=== PATIENT | female | born 1980 | race Caucasian/White ===

== ENCOUNTER 2019-10-19 07:57 | Outpatient (CLI) | payer BC, SELFPAY ==
--- NOTE | 2019-10-19 | MR_ITS ---
WS: [id number] MRI CERVICAL SPINE HISTORY: RADICULAR NECK AND BACK PAIN COMPARISON: None available. Normal cervical alignment with no compression fracture or significant disc space narrowing. Signal within the cervical cord is normal. Visualized posterior fossa is unremarkable. Craniocervical junction, C1 and C2 relationship, odontoid process and soft tissues are normal. C2-C3: Normal. C3-C4: Normal. C4-C5: Shallow LEFT paracentral osteophyte and/or disc protrusion without cord contact or significant encroachment. C5-C6: Mild annular disc bulging and osteophytosis. Larger osteophytes in the RIGHT foramen causing m ild stenosis. C6-C7: Mild disc bulging without stenosis. C7-T1: Normal. RIGHT T2 III nerve root sleeve diverticulum. Soft tissues of the neck are negative. MR/MR cervical spin wo con* [id number] IMPRESSION: 1. No significant disc protrusions or stenosis. 2. Mild RIGHT foraminal narrowing at C5-6 predominantly due to osteophyte dise ase.
--- NOTE | 2019-10-19 | MR_ITS ---
WS: [id number] MRI THORACIC SPINE , noncontrast. HISTORY: RADICULAR NECK AND BACK PAIN COMPARISON: None available. TECHNIQUE: Multiplanar sequences are performed in sagittal and axial planes. Normal posterior thoracic alignment. No fracture or marrow edema. Signal within the thoracic cord is normal. T1-2: Normal. T2-3: Hyperintense nodule measuring 6 x 7 mm to the RIGHT of the T2 vertebral body is probably degen erative cyst or nerve root sleeve diverticulum. T3-4: Normal. T4-5: Normal. T5-6: Normal. T6-7: Normal. T7-8: Normal. T8-9: Normal. T9-10: Normal. T10-11: Facet joint arthropathy. Small osteophytes encroach upon the posterior lateral thecal sac, g reatest on the RIGHT. No cord contact. T11-12: Normal. Paraspinal soft tissues are normal. MR/MR thoracic spin wo con* [id number] IMPRESSION: 1. No central or foraminal stenosis. 2. Mild facet joint arthropathy at T10-11. 3. Normal signal within the thoracic cord.
--- NOTE | 2019-10-19 | MR_ITS ---
WS: [id number] MRI LUMBAR SPINE NONCONTRAST HISTORY: RADICULAR NECK AND BACK PAIN COMPARISON: 12/22/2016 TECHNIQUE: Sagittal and axial multisequence imaging is submitted. Normal lumbar alignment with no compression fractures or marrow edema. Mild disc desiccation at L3-4 and L4-5. No marrow edema or fractures. Conus terminates normally at L1-2 disc level. L1-L2: Normal. L2-L3: Normal. L3-L4: Mild annular disc bulging. Slight narrowing of the subarticular recesses. Mild facet joint art hropathy. L4-L5: Small amount of fluid in the facet joints. No stenosis. L5-S1: Central disc bulging. No stenosis. 3 mm facet joint cyst on the LEFT. Paraspinal soft tissues are normal. MR/MR lumbar spine wo con* [id number] IMPRESSION: 1. No significant central or foraminal stenosis. 2. Minimal bilateral subarticular recess narrowing at L3-4 due to disc bulging and facet joint arthropathy.
== END 2019-10-19 07:58 | disposition home or self-care (01) ==
LOC: RADWPI 08:02
PROVIDERS: PCP Family Medicine; Visit Provider Family Medicine
DX: M54.2 Cervicalgia (principal); M54.6 Pain in thoracic spine; M54.5 Low back pain
CPT/HCPCS: 72141; 72146; 72148

== ENCOUNTER 2019-10-24 06:53 | Day surgery (SDC) | payer BC, SELFPAY ==
[2019-10-24 07:53] VITALS: BMI 33.0
[2019-10-24] MEDS: sodium chloride 0.9% 1,000 ML 30 ML (08:07)
--- NOTE | 2019-10-24 08:12 | ANES.PREANES ---
Pre-Anesthetic Assessment Pre-Anesthetic Assessment: Height/Weight: Height 1.57 m Weight 82.1 kg Preop Diagnosis: GERD; previous gastric sleeve Proposed Procedure: Operation Date: 10/24/19 08:30 Proposed Procedures p EGD(Not Applicable) - Chris Tellez MD Familial anesthetic complications: denies Was Beta Mallorie taken within 24 hours: N/A Last intake: Intake Last Liquid Date 10/23/19 Last Liquid Time 07:57 Last Solid Date 10/23/19 Last Solid Time 19:00 Social: Social History: No alcohol and No tobacco Exam: Pre-Anes Outpt Exam: alert, oriented x 3, clear to auscultation bilaterally and regular rate & rhythm Airway: Submandibular: WNL Cervical ROM: WNL MP: 1 Dentition: Full History/ROS: No significant history except as noted Pulmonary: Comments: RUL pulmonary nodule; patient admits to having bronchitis and pneumonia frequently as a child CV/HEM: CV/HEM: HTN : : None reported Hepatic: Hepatic: None reported GI: GI: GERD and Hiatus hernia Metabolic: Metabolic: None reported Musc/skel: Musc/skel: Lower Back Pain Neuropsych: Neuropsych: Anxiety, Neuropathy and TIA (admitted through the ER in September 2019; slurred speach and facial numbness; no residual effects noted) Anesthetic Plan: ASA status: II Anesthesia: Anesthesia Evaluation and MAC Risk of > 500 ml blood loss (7ml/kg in children): No Data Anesthesia Cardiac Studies: No Data to Display
--- NOTE | 2019-10-24 08:22 | PM.HPUD ---
H&P update H&P Update: DATE OF SURGERY/PROCEDURE: 10/24/19 DATE H&P PERFORMED: 09/20/19 PLANNED PROCEDURE: Operation Date: 10/24/19 08:30 Proposed Procedures p EGD(Not Applicable) - Chris Tellez MD Full H&P HPI: PLANNED PROCEDURE: Diagnostic EGD HPI: Chief complaint; Heartburn HPI; This is a pleasant 39 years old female patient well-known to me status post laparoscopic vertical gastric sleeve about 2 years ago, patient does have worsening GERD and difficulty in swallowing, she had an upper GI study back in December 2018 and was not of significance, except for prior postoperative changes of gastric sleeve, that with prominent GERD, and associated mild esophageal dysmotility. ROS: ROS: Review of Systems Constitutional: Denies: Chills, Fatigue, Fever, Malaise, No constitutional symptoms, Other, Other, Sweats, Weakness, Weight loss cardiac symptoms, Orthopnea, Other, Other, Palpitations, Paroxysmal Noc. Dyspnea Respiratory: Denies: Cough- Productive, Cough-Nonproductive, Hemoptysis, No respiratory symptoms, Other, Other, Pleuritic Pain, SOB at rest, SOB with exertion, Wheezing GI: GERD Neuro: Denies: Ataxia, Change in speech, Confusion, Drowsy, Focal motor issue, Focal sensory issue, Headaches, No neuro symptoms, Numbness, Other, Other, Seizures, Syncope, Tremors, Vertigo, Weakness Perinent History: Medical/Surgical History: History of gastric sleeve Pertinent Exam Findings: PHYSICAL EXAM: alert, oriented x 3, clear to auscultation bilaterally and operative site marked (Abdomen nontender nondistended soft no organomegaly guarding or rigidity/no signs of peritonitisExtremities no cyanosis no clubbing no edema) A&P Assessment and plan (1) GERD (gastroesophageal reflux disease): Plan of care; After thorough history and physical examination and reviewing the chart, plan to perform a diagnostic esophagogastroduodenoscopy and possible biopsy in the GI lab. Informed consent per chart were,Indications, risks, benefits, and alternatives were all discussed with the patient and did agree to proceed. Status: Acute Code(s): K21.9 - Gastro-esophageal reflux disease without esophagitis
[2019-10-24 08:38] VITALS: BP 95/72; PULSE 84; RESP 16; TEMP 36.1; O2SAT 97
[2019-10-24 08:48] VITALS: BP 122/84; PULSE 73; RESP 18; O2SAT 100
--- NOTE | 2019-10-24 08:53 | ANE.PACU ---
 Inpatient post-anesthesia follow up: Airway intact: Yes Vital signs: Temperature 97.0 F Pulse Rate [Left B rachial] 84 Respiratory Rate 16 Blood Pressure [Le ft Arm] 95/72 Pulse Oximetry 97 Oxygen Delivery Me thod Room Air Oxygen Flow Rate Fraction of Inspir ed Oxygen Hydration adequate: Yes Nausea and vomiting: No Pain level: 0 Mental status: Baseline
[2019-10-25 06:56] LABS: H. Pylori / CLO Test Negative
== END 2019-10-24 09:08 | disposition home or self-care (01) ==
PROVIDERS: Visit Provider Surgery
PROC: 0DJ08ZZ Inspection of Upper Intestinal Tract, Via Natural or Artificial Opening Endoscopic (ICD-10-PCS; CPT 43235; principal; 2019-10-24 08:30)
DX: K21.9 Gastro-esophageal reflux disease without esophagitis (principal); K29.70 Gastritis, unspecified, without bleeding; Z98.84 Bariatric surgery status
CPT/HCPCS: 12345; 43239; 87077; 96365; J2704; J7030

== ENCOUNTER 2020-02-19 17:07 | Outpatient (CLI) | payer BC, SELFPAY ==
[2020-02-19 18:03] LABS: Basophils % 0.3 %; Eosinophils # 0.2 10^3/uL (0.0-0.8); Eosinophils % 2.9 %; Hematocrit 40.4 % (37.0-47.0); Hemoglobin 13.1 g/dL (11.5-15.3); Lymphocytes # 2.3 10^3/uL (0.8-4.8); Lymphocytes % 33.2 %; Mean Corpuscular HGB Conc 32.4 g/dL (30.0-36.0); Mean Corpuscular Hemoglobin 29.9 pg (28.0-34.0); Mean Corpuscular Volume 92.2 fL (81-99); Mean Platelet Volume 10.1 fL (7.4-10.4); Monocytes # 0.4 10^3/uL (0.2-0.9); Monocytes % 6.2 %; Neutrophils % 57.1 %; Nucleated Red Blood Cells % 0 %; Platelet Count 234 10^3/cmm (130-400); Red Blood Count 4.38 10^6/uL (4.1-5.3); Red Cell Distribution Width 11.9 % (12.1-15.1); White Blood Count 6.9 10^3/uL (4.0-10.0)
[2020-02-19 18:12] LABS: Alanine Aminotransferase 27 U/L (0-33); Albumin Level 4.5 g/dL (3.5-5.2); Alkaline Phosphatase 81 IU/L (35-105); Anion Gap 14.7 (5-19); Aspartate Amino Transferase 18 U/L (0-32); Blood Urea Nitrogen 9 mg/dL (6-20); C Reactive Protein 6.6 mg/L (0.0-4.9); Calcium 10.2 mg/dL (8.5-10.5); Carbon Dioxide 28 mmol/L (22-29); Chloride 102 mmol/L (98-107); Globulin 3.4 g/dL (1.3-4.6); Glucose 59 mg/dL (65-115); Osmolality Calculated 286 mOsm/kg (285-295); Potassium 3.7 mmol/L (3.5-5.1); Sodium 141 mmol/L (136-145); Thyroid Stimulating Hormone 1.99 uIU/mL (0.27-4.20); Total Bilirubin 0.2 mg/dL (0.15-1.2); Total Protein 7.9 g/dL (6.6-8.7)
[2020-02-19 20:52] LABS: Erythrocyte Sedimentation Rate 8 mm/hr (0-15)
[2020-02-21 12:44] LABS: Anti-Double Strand DNA AB 1 IU/mL; Jo-1 Antibody <1.0 NEG AI (<1.0 NEG); SM/RNP Antibodies <1.0 NEG AI (<1.0 NEG); SS-B/LA IGG <1.0 NEG AI (<1.0 NEG); Scleroderma Ab(Scl-70) Ab <1.0 NEG AI (<1.0 NEG); Ss-A/Ro Igg <1.0 NEG AI (<1.0 NEG)
[2020-02-21 23:48] LABS: 25 Hydroxy Vitamin D 26 ng/mL (30-100)
== END 2020-02-19 17:08 | disposition home or self-care (01) ==
LOC: LAB 17:10
PROVIDERS: PCP Nurse Practitioner Family; Visit Provider Nurse Practitioner Family
DX: L56.8 Other specified acute skin changes due to ultraviolet radiation (principal)
CPT/HCPCS: 36415; 80053; 82306; 84443; 85025; 85651; 86140; 86225; 86235

== ENCOUNTER → 2020-04-24 16:18 | Outpatient (BNVA) | payer BC, SELFPAY | PROVIDERS: PCP Nurse Practitioner Family; Visit Provider Nurse Practitioner Family | DX: M25.50 Pain in unspecified joint (principal); R53.83 Other fatigue | CPT/HCPCS: 85025 ==

== ENCOUNTER → 2020-04-25 08:49 | Outpatient (BNVA) | payer BC, SELFPAY | PROVIDERS: PCP Nurse Practitioner Family; Visit Provider Nurse Practitioner Family | DX: R53.83 Other fatigue (principal); M25.50 Pain in unspecified joint | CPT/HCPCS: 80053; 84443; 86140; 86431 ==

== ENCOUNTER 2020-07-15 07:43 | Outpatient (CLI) | payer BC, SELFPAY ==
--- NOTE | 2020-07-15 08:00 | CT_ITS ---
WS: [id number] CT CHEST WITH INTRAVENOUS CONTRAST HISTORY: enlarged lymph nodes TECHNIQUE: Contiguous 5 mm axial imaging performed on the thorax. Coronal and sagittal reformats are submitted. All CT scans at [facility] use at least one of these dose optimization techniq ues: automated exposure control; mA and/or kV adjustment per patient size (includes targeted exams wh ere dose is matched to clinical indication); or iterative reconstruction. CONTRAST: Omnipaque 300; 95 mL IV. DLP: 948.47 mGycm COMPARISON: 12/11/2018 and 10/30/2014 Lungs and central airway: Again noted is a noncalcified 6.5 mm nodule in the RIGHT upper lobe, image 13 of series 3. Appears slightly more solid although the diameter is similar to the prior study. Yogesh tional small 7 mm nodule in the LEFT lower lobe is probably also present. Partially obscured by the a djacent vascular branches. Indeterminate for additional lesion. 3 pulmonary nodule along the RIGHT ma verito fissure is unchanged, image 22 of series 3. Pleura: Normal. No pleural effusion. Heart and pericardium: Normal size heart with no pericardial effusion. Mediastinum and chad: Numerous indeterminate hilar and mediastinal lymph nodes are again identified. Not significantly changed or progressed or improved since 12/11/2018. Largest lymph node measures 10 mm at the RIGHT hilum. Vessels: Normal size aortic and pulmonary artery. No coronary artery calcifications. Chest wall and lower neck: No soft tissue masses. Upper abdomen: Moderate-sized hiatal hernia. Hepatic steatosis. Prior cholecystectomy. No adrenal mas s. Osseous structures: No destructive process. CT/CT chest w con* [id number] IMPRESSION: 1. Minimal change in the RIGHT upper lobe 6.5 mm nodule since 12/11/2018. Questi onable new nodule LEFT lower lobe. 2. Indeterminate but stable since 12/11/2018 is mediastinal and hilar adenopathy . 3. Prior cholecystectomy. 4. Recommendation: [address] follow-up to reevaluate long-term stabili ty of the lung nodules and adenopathy which has remained stable since 12/11/2018.
[2020-07-15] MEDS: iohexol 300 mg/mL 100 mL Btl IV (08:39)
== END 2020-07-15 07:44 | disposition home or self-care (01) ==
LOC: RADWPI 07:48
PROVIDERS: Visit Provider Nurse Practitioner Family
DX: R59.0 Localized enlarged lymph nodes (principal); R91.1 Solitary pulmonary nodule; Z90.49 Acquired absence of other specified parts of digestive tract
CPT/HCPCS: 71260; Q9967

== ENCOUNTER → 2020-07-22 09:41 | Outpatient (BNVA) | payer BC, SELFPAY | PROVIDERS: Visit Provider Internal Medicine | DX: D86.9 Sarcoidosis, unspecified (principal); Z11.59 Encounter for screening for other viral diseases; M25.50 Pain in unspecified joint; R53.83 Other fatigue; R21 Rash and other nonspecific skin eruption; R59.0 Localized enlarged lymph nodes | CPT/HCPCS: 36415; 80053; 82024; 82164; 82306; 82310; 82533; 82550; 82607; 82728; 82784; 83516; 83540; 83970; 84100; 85651; 86140; 86431; 86704; 86803; 86812; 87340; 99204 ==

== ENCOUNTER → 2020-08-16 11:36 | Outpatient (BNVA) | payer BC, SELFPAY | PROVIDERS: Visit Provider Internal Medicine Pulmonary Disease | DX: Z11.59 Encounter for screening for other viral diseases (principal) | CPT/HCPCS: 87635 ==

== ENCOUNTER 2020-08-20 13:41 | Outpatient (CLI) | payer BC, SELFPAY ==
--- NOTE | 2020-08-20 14:26 | PFTS_ITS ---
Date of Study:08/20/20 Date of Dictation: MECHANICS: Forced vital capacity (FVC) is normal. Forced expiratory volume in one second (FEV1) is normal. FEV1/FVC is normal. FLOW VOLUME LOOP: Normal. LUNG VOLUMES: Total lung capacity (TLC) is normal. Residual volume (RV) is normal. DIFFUSING CAPACITY FOR CARBON MONOXIDE: Normal. INTERPRETATION: The pulmonary function tests are normal. Lung volumes are normal. Gas exchange (DLCO) is normal. MTDD
--- NOTE | 2020-08-20 15:45 | USCV_ITS ---
Linda Spicer Age: 40 Gender: F : 1980 Exam Date: 08/20/2020 14:49 Ordering Phys: Martín Malagon MD Technologist: Cara Hanson [place] [facility] [place]: ASSESS LV FUNCTION BP: 130 / 70 HR: 67 Rhythm: Sinus Technical Quality: Adequate MEASUREMENTS (Male / Female) Normal Values 2D ECHO LV Diastolic Diameter PLAX 3.6 cm 4.2 - 5.9 / 3.9 - 5.3 cm LV Systolic Diameter PLAX 2.5 cm LV Chamber Size 2.8 cm IVS Diastolic Thickness 1.3 cm 0.6 - 1.0 / 0.6 - 0.9 cm IVS Systolic Thickness 1.5 cm LVPW Diastolic Thickness 1.0 cm 0.6 - 1.0 / 0.6 - 0.9 cm LVPW Systolic Thickness 1.2 cm RV Chamber Size 2.8 cm LVOT Diameter 2.0 cm LV Ejection Fraction 2D Teich 57.9 % LV Ejection Fraction MOD 2C 74.1 % LV Ejection Fraction 2C AL 74.1 % LA Diameter 3.6 cm LA Width 3.1 cm LA Height 3.5 cm RA Width 2.8 cm RA Height 3.5 cm Aorta at Sinotubular Diameter 2.3 cm M-MODE LV Diastolic Diameter MM 4.6 cm 4.2 - 5.9 / 3.9 - 5.3 cm LV Systolic Diameter MM 2.9 cm LV Ejection Fraction MM Teich 66.1 % IVS Diastolic Thickness MM 0.9 cm 0.6 - 1.0 / 0.6 - 0.9 cm IVS Systolic Thickness MM 1.4 cm LVPW Diastolic Thickness MM 0.9 cm 0.6 - 1.0 / 0.6 - 0.9 cm LVPW Systolic Thickness MM 1.6 cm RV Diastolic Diameter MM 1.4 cm Aortic Annulus Diameter 3.0 cm LA Ao Ratio MM 1.4 MV E Point Septal Separation 0.2 cm DOPPLER AV Peak Velocity 128.0 cm/s LVOT Peak Velocity 75.0 cm/s AV Area Cont Eq vti 1.8 cm squared AV Area Cont Eq pk 1.8 cm squared MV Area PHT 4.4 cm squared Mitral E to A Ratio 1.5 MV E' Velocity 51.5 cm/s Mitral E to MV E' Ratio 7.8 Mitral E to LV E' Lateral Ratio 6.7 Mitral E to LV E' Septal Ratio 9.5 TR Peak Velocity 184.8 cm/s TR Peak Gradient 13.7 mmHg TR Mean Velocity 136.7 cm/s TR Mean Gradient 8.4 mmHg TR Velocity Time Integral 60.0 cm TV Peak E Velocity 70.0 cm/s Right Atrial Pressure 3.0 mmHg Pulmonary Artery Systolic Pressu 16.7 mmHg PV Peak Velocity 59.0 cm/s RV Acceleration Time 0.2 s RV Ejection Time 0.3 s RV AcT/ET 0.5 FINDINGS Left Ventricle Normal left ventricular cavity size. Normal left ventricular systolic function. No regional wall motion abnormalities. Left ventricular ejection fraction is estimated at 60 %. Grade II/IV diastolic dysfunction, moderately elevated filling pressures. Right Ventricle The right ventricle is normal in size and function. Right Atrium The right atrium is normal in size. Left Atrium The left atrium is normal in size. Mitral Valve Mildly thickened mitral valve. No mitral valve stenosis. Trace mitral valve regurgitation. Aortic Valve Mild aortic valve calcification. No aortic valve stenosis. Trace aortic valve regurgitation. Tricuspid Valve Mild to moderate tricuspid valve regurgitation. Pulmonic Valve Structurally normal pulmonic valve without significant stenosis. There is no pulmonic regurgitation. Pericardium Normal pericardium without effusion. Aorta Normal ascending aorta dimension. CONCLUSIONS 1-Normal left ventricular cavity size. Normal left ventricular systolic function. No regional wall motion abnormalities. Left ventricular ejection fraction is estimated at 60 %. Grade II/IV diastolic dysfunction, moderately elevated filling pressures. 2-Mild to moderate tricuspid valve regurgitation. 3-Mildly thickened mitral valve. No mitral valve stenosis. Trace mitral valve regurgitation. 4-There is no pericardial effusion. 5-Right atrial pressure is around 5 mm of mercury. 6-No significant change since the prior echocardiogram study of 11/12/2017. Jovany Hinojosa MD (Electronically Signed) Final Date: 20 August 2020 19:28 S
== END 2020-08-20 13:42 | disposition home or self-care (01) ==
PROVIDERS: PCP Nurse Practitioner Family; Visit Provider Internal Medicine Pulmonary Disease
DX: R22.43 Localized swelling, mass and lump, lower limb, bilateral (principal); I08.1 Rheumatic disorders of both mitral and tricuspid valves
CPT/HCPCS: 93306; 94010; 94726; 94729

== ENCOUNTER → 2020-08-28 14:37 | Outpatient (BNVA) | payer BC, SELFPAY | PROVIDERS: PCP Nurse Practitioner Family; Visit Provider Internal Medicine | DX: M25.50 Pain in unspecified joint (principal); R21 Rash and other nonspecific skin eruption; R53.83 Other fatigue; R76.8 Other specified abnormal immunological findings in serum; K21.9 Gastro-esophageal reflux disease without esophagitis; Z87.891 Personal history of nicotine dependence | CPT/HCPCS: 80053; 82164; 82310; 82570; 83970; 84100; 84156; 99214 ==

== ENCOUNTER → 2020-08-29 11:38 | Outpatient (BNVA) | payer BC, SELFPAY | PROVIDERS: PCP Nurse Practitioner Family; Visit Provider Internal Medicine | DX: Z79.899 Other long term (current) drug therapy (principal); M25.50 Pain in unspecified joint | CPT/HCPCS: 36415; 80053; 82164; 82310; 82570; 83970; 84100; 84156 ==

== ENCOUNTER 2020-08-29 13:11 | Emergency (ER) | payer BC, SELFPAY ==
[2020-08-29 13:16] VITALS: BP 152/93; PULSE 88; RESP 18; TEMP 36.7; O2SAT 100; BMI 34.4
--- NOTE | 2020-08-29 14:20 | ECG_ITS ---
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 Measurements Intervals [place] Rate: 69 P: 29 ME: 154 QRS: 19 QRSD: 83 T: 25 QT: 398 QTc: 429 Interpretive Statements SINUS RHYTHM Compared to ECG 10/01/2019 14:42:56 No significant changes Electronically Signed On 08-29-2020 19:46:55 [employer] ENG[employer] by Katharine Sarmiento M.D. [id number]
--- NOTE | 2020-08-29 14:21 | CT_ITS ---
WS: [id number] CT HEAD NONCONTRAST HISTORY: left sided weakness TECHNIQUE: Contiguous axial imaging performed through the brain in 2.5 mm imaging. Bone and soft tiss ue windows. Sagittal and coronal reformats reviewed. All CT scans at [facility] use at ast one of these dose optimization techniques: automated exposure control; mA and/or kV adjustment pe r patient size (includes targeted exams where dose is matched to clinical indication); or iterative r econstruction. DLP: 734.58 mGy.cm COMPARISON: 10/01/2019 No acute intracranial hemorrhage, midline shift or mass effect. No atrophy or prior infarcts or herniation. Ventricles: Normal size with no hydrocephalus. Paranasal sinuses: As visualized are clear. Mastoid air cells: Well pneumatized. Calvarium and scalp: Skull is intact with no soft tissue edema or swelling. CT/CT head wo con* [id number] IMPRESSION: Negative head CT.
--- NOTE | 2020-08-29 14:37 | W.ED.NEUROSD ---
HPI - Neuro Symptoms/Deficit General: Chief Complaint: Neuro Symptoms/Deficit Stated Complaint: STUTTERING,L SIDE WEAKNESS Time Seen by Provider: 08/29/20 13:26 History of Present Illness: HPI Narrative: This patient is a 40-year-old female who presents today with headache, stuttering speech, left-sided weakness and numbness which caused her to fall today. Her was with her and caught her before she injured herself. She said she had the symptoms about a year ago and came to the ER. She was told it was all in her head and she was quite upset about that. She said the symptoms resolved within about a week. She has seen a neurologist since that time but not for the symptoms. She was seen for weakness and was worked up for MS. That work-up was negative. 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 She does have a history of Raynaud's phenomenon. She also reports pain in the right side of her chest which comes and goes and has been present today. Its been present off and on for some time. She also has this weakness in her left leg chronically off and on for some time. She denies fevers or chills. She does have some nausea. She denies any medication changes. She has not been sick recently. Onset (ago): unknown (Woke up with a headache and the other symptoms started a short time before coming to the ER) Timing confirmed by: spouse Location: speech, left arm and left leg History of same: Yes Severity: moderate Quality: weak, numb and other (Stuttering) Relieving factors: none Exacerbating factors: none Context: sudden onset and recent fall On Anticoagulants: No Associated symptoms: Reports chest pain and nausea; Deny headache(s) or malaise Review of Systems General: Reports: 10 or more systems reviewed and unremarkable except in HPI and below Const: Denies: fever(s), chills, fatigue or malaise Eyes: Denies: change in vision ENMT: Denies: odynophagia Card: Reports: chest pain Resp: Denies: dyspnea, productive cough or non-productive cough GI: Reports: nausea : Denies: flank pain or difficulty voiding Musc: Denies: neck pain or back pain Skin/Breast: Denies: rash Neuro: Denies: headache(s), numbness in extremities or weakness in extremities Rhett/Lymph: Denies: easy bruising or easy bleeding PFSH ED PFSH: Medical History (Updated 08/29/20 @ 17:05 by Italia Grullon MD) Chest pain Costochondritis Frequent falls Gastritis Hilar lymphadenopathy Shortness of breath Surgical History History of esophagogastroduodenoscopy (EGD) (~10/2019) Hx of cholecystectomy Hx of hysterectomy Hx of laparoscopic partial gastrectomy Hx of oophorectomy Family History Denies family history of Anesthesia complication Bleeding disorder Social History Smoking and tobacco status: former smoker Quit status (tobacco): has quit using tobacco Year quit tobacco: 2014 - .025PPD x15yrs Second hand smoke exposure: No Smoking risk assessment/counseling performed?: No Alcohol intake: current Alcohol intake frequency: few times a month Lives independently: Yes Household members: spouse Marital status: Highest education level completed: High School Graduate service: No Current occupational status: employed Current occupation: [employer] Current occupational exposures/hazards: No Pets and animals: No History of recent travel: No Sexually active: Yes Current gender identity: Female Sarah/Denominational: Hindu NIH stroke score NIHSS: Level Of Consciousness - 1a: 0 Level Of Consciousness Questions - 1b: Both Correct Level Of Consciousness Commands - 1c: Both Correct Best Gaze - 2: Normal Visual Quick - 3: No Visual Loss Facial Palsy - 4: Normal Motor Arm Right - 5: No Drift Motor Arm Left - 5: No Drift Motor Leg Right - 6: No Drift Motor Leg Left - 6: No Drift Limb Ataxia - 7: Absent Sensory - 8: Normal Best Language - 9: No Aphasia Dysarthia - 10: Normal If Intubated/Physcial Barrier - Explain: Stuttering speech Extinction And Inattention - 11: 0 Score: Total Score: 0 Physical Exam Const: COMMON NORMALS: no acute distress, patient oriented x3, no limitations and alert GENERAL APPEARANCE: cooperative and comfortable HENMT: HEAD & SCALP: normal to inspection FACE & SINUS: normal facial exam Eye: GENERAL EYE: appearance normal, both eyes and all related structures Neck/C-Spine: COMMON NORMALS: supple, no meningeal signs and no JVD Chest: COMMONS NORMALS: normal inspection of the chest Resp: COMMON NORMALS: normal respiratory effort, No use of accessory muscles and clear to auscultation bilaterally AUSCULTATION: clear to auscultation bilaterally Cardio: COMMON NORMALS: no JVD, regular rate, regular rhythm and No murmurs present (Cardio) RATE: regular rate RHYTHM: regular rhythm GI: COMMON NORMALS: Normal to inspection, nondistended, normoactive bowel sounds present, Soft to palpation and non-tender INSPECTION: Yes normal to inspection AUSCULTATION: Yes normoactive bowel sounds PALPATION: Yes Soft to palpation Back/Pelvis: COMMON NORMALS: thoracic and lumbar spine normal to inspection Extremity: COMMON NORMALS: normal to inspection Neuro: COMMON NORMALS: patient oriented x3, moves all extremities, no focal motor deficits and no sensory deficits noted SENSORIUM/ORIENTATION: Yes alert MENINGEAL SIGNS: Yes no meningeal signs Psych: COMMON NORMALS: mental status grossly normal, cooperative and normal affect SPEECH: Yes Other speech symptoms (Stuttering but able to communicate her thoughts with no difficulty) Skin: COMMON NORMALS: no rashes or lesions noted and turgor normal GENERAL SKIN EXAM: no rashes or lesions noted and turgor normal Course ED course: Work-up is unremarkable. I referred her back to her primary care provider and suggested she might want to follow-up with a neurologist. I do not see anything dangerous or concerning today that would require further work-up or admission to the hospital. Vital Signs: Vital signs: Vital Signs Temperature 98.1 F 08/29/20 13:16 Pulse Rate 73 08/29/20 18:10 Respiratory Rate 13 08/29/20 18:10 Blood Pressure 123/82 08/29/20 18:10 Pulse Oximetry 97 08/29/20 18:10 MDM - Neuro Symptoms/Deficit Lab Data: Labs: Lab Results 08/29/20 08/29/20 08/29/20 Range/Units 14:00 14:00 14:00 WBC 7.5 (4.0-10.0) 10^3/ uL RBC 4.44 (4.1-5.3) 10^6/u L Hgb 13.2 (11.5-15.3) g/dL Hct 41.4 (37.0-47.0) % MCV 93.2 (81-99) fL MCH 29.7 (28.0-34.0) pg MCHC 31.9 (30.0-36.0) g/dL RDW 12.7 (12.1-15.1) % Plt Count 234 (130-400) 10^3/c mm MPV 10.0 (7.4-10.4) fL Neut % (Auto) 65.1 % Lymph % (Auto) 27.2 % [place] % (Auto) 5.1 % Eos % (Auto) 2.0 % Baso % (Auto) 0.5 % Neut # (Auto) 4.85 (1.8-7.7) 10^3/u L Lymph # (Auto) 2.0 (0.8-4.8) 10^3/u L [place] # (Auto) 0.4 (0.2-0.9) 10^3/u L Eos # (Auto) 0.2 (0.0-0.8) 10^3/u L Baso # (Auto) 0.0 (0.0-0.1) 10^3/u L Nucleated RBC % (a uto) 0 % Nucleated RBCs # 0.0 /100WBC Sodium 141 (136-145) mmol/L Potassium 3.7 (3.5-5.1) mmol/L Chloride 103 (98-107) mmol/L Carbon Dioxide 30 H (22-29) mmol/L Anion Gap 11.7 (5-19) BUN 8 (6-20) mg/dL Creatinine 0.9 (0.5-0.9) mg/dL GFR Calculation 69.0 L (90-130) mL/min Glucose 109 (65-115) mg/dL Calculated Osmolal ity 291 (285-295) mOsm/k g Calcium 9.2 (8.5-10.5) mg/dL Total Bilirubin 0.2 (0.15-1.2) mg/dL AST 10 (0-32) U/L ALT 11 (0-33) U/L Alkaline Phosphata se 76 (35-105) IU/L Troponin T Baselin e 6 (0-10) ng/L Troponin T 120 Min radha (0-10) ng/L Delta Troponin T (0-10) ABS# Total Protein 7.5 (6.6-8.7) g/dL Albumin 4.8 (3.5-5.2) g/dL Globulin 2.7 (1.3-4.6) g/dL 11/20/20 Range/Units 16:30 WBC (4.0-10.0) 10^3/ uL RBC (4.1-5.3) 10^6/u L Hgb (11.5-15.3) g/dL Hct (37.0-47.0) % MCV (81-99) fL MCH (28.0-34.0) pg MCHC (30.0-36.0) g/dL RDW (12.1-15.1) % Plt Count (130-400) 10^3/c mm MPV (7.4-10.4) fL Neut % (Auto) % Lymph % (Auto) % [place] % (Auto) % Eos % (Auto) % Baso % (Auto) % Neut # (Auto) (1.8-7.7) 10^3/u L Lymph # (Auto) (0.8-4.8) 10^3/u L [place] # (Auto) (0.2-0.9) 10^3/u L Eos # (Auto) (0.0-0.8) 10^3/u L Baso # (Auto) (0.0-0.1) 10^3/u L Nucleated RBC % (a uto) % Nucleated RBCs # /100WBC Sodium (136-145) mmol/L Potassium (3.5-5.1) mmol/L Chloride (98-107) mmol/L Carbon Dioxide (22-29) mmol/L Anion Gap (5-19) BUN (6-20) mg/dL Creatinine (0.5-0.9) mg/dL GFR Calculation (90-130) mL/min Glucose (65-115) mg/dL Calculated Osmolal ity (285-295) mOsm/k g Calcium (8.5-10.5) mg/dL Total Bilirubin (0.15-1.2) mg/dL AST (0-32) U/L ALT (0-33) U/L Alkaline Phosphata se (35-105) IU/L Troponin T Baselin e (0-10) ng/L Troponin T 120 Min radha 6.00 (0-10) ng/L Delta Troponin T 0 (0-10) ABS# Total Protein (6.6-8.7) g/dL Albumin (3.5-5.2) g/dL Globulin (1.3-4.6) g/dL Discharge Plan Discharge Patient Disposition: Home Clinical Impression: Weakness, Stuttering Condition: Stable Prescriptions: No Action gabapentin 300 mg capsule 300 mg PO BID RF: 0 Protonix 40 mg tablet,delayed release (DR/EC) 40 mg PO QAM Qty: 30 RF: 2 estradiol 0.075 mg/24 hr patch weekly 1 patch transdermal DIRECTED RF: 0 escitalopram oxalate 5 mg tablet 5 mg PO DAILY RF: 0 Discharge Orders: Discharge Order (Routine); Ordered 08/29/20 Ordered By: Italia Grullon Referrals: Aria Schwarz FNP [Primary Care Provider] - Discharge Diet: Usual diet Discharge Activity: Resume usual activity Patient Instructions: Weakness (ED) Activity Restrictions/Additional Instructions: Follow-up with Aria Schwarz. Ask her for referral to a neurologist for evaluation of your symptoms. There is no evidence of any stroke at this time. Return to the ER if worsening weakness or other neurologic symptoms. Coding Level of Care Code ED Utilization Review Nurse for Log Fwd Exam Comprehensive
[2020-08-29 14:38] VITALS: BP 140/97; PULSE 68; RESP 16; O2SAT 97
[2020-08-29 14:42] LABS: Basophils % 0.5 %; Eosinophils # 0.2 10^3/uL (0.0-0.8); Hematocrit 41.4 % (37.0-47.0); Hemoglobin 13.2 g/dL (11.5-15.3); Lymphocytes % 27.2 %; Mean Corpuscular HGB Conc 31.9 g/dL (30.0-36.0); Mean Corpuscular Hemoglobin 29.7 pg (28.0-34.0); Mean Corpuscular Volume 93.2 fL (81-99); Monocytes # 0.4 10^3/uL (0.2-0.9); Monocytes % 5.1 %; Neutrophils # 4.85 10^3/uL (1.8-7.7); Neutrophils % 65.1 %; Nucleated Red Blood Cells % 0 %; Platelet Count 234 10^3/cmm (130-400); Red Blood Count 4.44 10^6/uL (4.1-5.3); Red Cell Distribution Width 12.7 % (12.1-15.1); White Blood Count 7.5 10^3/uL (4.0-10.0)
[2020-08-29 15:01] LABS: Alanine Aminotransferase 11 U/L (0-33); Albumin Level 4.8 g/dL (3.5-5.2); Alkaline Phosphatase 76 IU/L (35-105); Anion Gap 11.7 (5-19); Aspartate Amino Transferase 10 U/L (0-32); Blood Urea Nitrogen 8 mg/dL (6-20); Calcium 9.2 mg/dL (8.5-10.5); Carbon Dioxide 30 mmol/L (22-29); Chloride 103 mmol/L (98-107); Globulin 2.7 g/dL (1.3-4.6); Glucose 109 mg/dL (65-115); Osmolality Calculated 291 mOsm/kg (285-295); Potassium 3.7 mmol/L (3.5-5.1); Sodium 141 mmol/L (136-145); Total Bilirubin 0.2 mg/dL (0.15-1.2); Total Protein 7.5 g/dL (6.6-8.7)
[2020-08-29 15:05] LABS: Troponin(5th) Baseline 6 ng/L (0-10)
--- NOTE | 2020-08-29 16:20 | ECG_ITS ---
[facility] Test Date: 2020-08-29 Pat Name: Linda Spicer Department: Room: Gender: Female Disability Examiner: : 1980 Requested By: Italia Taylor Order Number: [id number] Thu MD: Katharine Sarmiento M.D. Measurements Intervals Waterfall Rate: 70 P: 38 SC: 149 QRS: 29 QRSD: 71 T: 31 QT: 383 QTc: 415 Interpretive Statements SINUS RHYTHM LOW QRS VOLTAGE IN PRECORDIAL LEADS [QRS DEFLECTION < 1.0 mV IN CHEST LEADS] Compared to ECG 08/29/2020 15:07:59 Low QRS voltage now present Electronically Signed On 08-29-2020 20:04:41 ODD PIECE CHECKER by Katharine Sarmiento M.D. [email or web address]
[2020-08-29 16:38] VITALS: BP 070/80; PULSE 88; RESP 18; O2SAT 95
[2020-08-29 17:03] LABS: Troponin 5 2HR Delta 0 ABS# (0-10)
[2020-08-29 18:10] VITALS: BP 123/82; PULSE 73; RESP 13; O2SAT 97
== END 2020-08-29 18:11 | disposition home or self-care (01) ==
PROVIDERS: Emergency Provider Emergency Medicine; PCP Nurse Practitioner Family
DX: R53.1 Weakness (principal); F98.5 Adult onset fluency disorder; Z87.891 Personal history of nicotine dependence
CPT/HCPCS: 12345; 70450; 80053; 84484; 85025; 93005; 99283

== ENCOUNTER 2020-10-06 13:01 | Outpatient (CLI) | payer BC, SELFPAY ==
[2020-10-06 13:49] LABS: Anion Gap 15.8 (5-19); Blood Urea Nitrogen 11 mg/dL (6-20); Calcium 9.6 mg/dL (8.5-10.5); Carbon Dioxide 28 mmol/L (22-29); Chloride 101 mmol/L (98-107); Glucose 87 mg/dL (65-115); Magnesium 2.1 mg/dL (1.7-2.3); NT Pro B Type Natriuretic Pept 77 pg/mL (0-125); Osmolality Calculated 291 mOsm/kg (285-295); Potassium 3.8 mmol/L (3.5-5.1); Sodium 141 mmol/L (136-145)
== END 2020-10-06 13:02 | disposition home or self-care (01) ==
LOC: LAB 13:04
PROVIDERS: PCP Nurse Practitioner Family; Visit Provider Internal Medicine Cardiovascular Disease
DX: I51.89 Other ill-defined heart diseases (principal)
CPT/HCPCS: 36415; 80048; 83735; 83880

== ENCOUNTER → 2020-10-14 10:33 | Outpatient (BNVA) | payer BC, SELFPAY | PROVIDERS: PCP Nurse Practitioner Family; Visit Provider Internal Medicine | DX: R76.8 Other specified abnormal immunological findings in serum (principal); R21 Rash and other nonspecific skin eruption; Z79.899 Other long term (current) drug therapy; M94.0 Chondrocostal junction syndrome [Tietze]; R70.0 Elevated erythrocyte sedimentation rate; Z87.891 Personal history of nicotine dependence | CPT/HCPCS: 36415; 82955; 85651; 86140; 86160; 99214 ==

== ENCOUNTER 2020-10-16 07:55 | Outpatient (CLI) | payer BC, SELFPAY ==
--- NOTE | 2020-10-16 08:09 | XR_ITS ---
WS: [id number] RIBS BILATERAL TECHNIQUE: 4 views bilateral ribs CLINICAL INFORMATION: R76.8 - Other specified abnormal immunological findings in serum COMPARISON: FINDINGS: Bilateral lower ribs are normal in appearance. No visualized fractures. Cholecystectomy clips. XR/XR ribs BI 3V* [id number] IMPRESSION: No visualized rib fractures.
== END 2020-10-16 07:56 | disposition home or self-care (01) ==
LOC: RADWPI 07:58
PROVIDERS: PCP Nurse Practitioner Family; Visit Provider Internal Medicine
DX: R76.8 Other specified abnormal immunological findings in serum (principal)
CPT/HCPCS: 71110

== ENCOUNTER 2021-01-19 08:44 | Outpatient (CLI) | payer BC, SELFPAY ==
--- NOTE | 2021-01-19 09:00 | CT_ITS ---
WS: [id number] CT CHEST TECHNIQUE: Noncontrast CT of the chest with coronal and sagittal reformatted images. CLINICAL INFORMATION: pulmonary nodule COMPARISON: CT chest July 15, 2020 and 2018 DLP: 886.[address] scans at [facility] use at least one of these dose optimization techniques: automat ed exposure control; mA and/or kV adjustment per patient size (includes targeted exams where dose is matched to clinical indication); or iterative reconstruction. FINDINGS: Stable right upper lobe pulmonary nodule measuring 6.5 mm. This is stable since December 11, 2018. Previ ously described left lower lobe nodule measuring 5.4 mm is unchanged. Stable anterior mediastinal and right hilar lymphadenopathy. No other suspicious pulmonary parenchymal opacities. No acute pulmonary infiltrates. No consolidation or pleural fluid. Normal thoracic spine. No axillary lymphadenopathy. Cholecystectomy clips. Postoperative changes at the GE junction. Adrenal glands are normal. CT/CT chest wo con [id number] IMPRESSION: 1. Right upper lobe and left lower lobe pulmonary nodules are unchanged. Recom mend 12 month follow-up. 2. Stable mediastinal and hilar lymphadenopathy. 3. Prior cholecystectomy. 4. Postoperative changes at the GE junction with small esophageal hiatal herni a.
== END 2021-01-19 08:45 | disposition home or self-care (01) ==
PROVIDERS: PCP Nurse Practitioner Family; Visit Provider Internal Medicine Pulmonary Disease
DX: R91.1 Solitary pulmonary nodule (principal); Z90.49 Acquired absence of other specified parts of digestive tract; K44.9 Diaphragmatic hernia without obstruction or gangrene
CPT/HCPCS: 71250

== ENCOUNTER → 2021-06-03 16:12 | Outpatient (BNVA) | payer BC, SELFPAY | PROVIDERS: PCP Nurse Practitioner Family; Visit Provider Nurse Practitioner Family | DX: R61 Generalized hyperhidrosis (principal); R53.83 Other fatigue | CPT/HCPCS: 80053; 84443; 85025 ==

== ENCOUNTER 2021-06-08 09:46 | Outpatient (CLI) | payer BC, SELFPAY ==
[2021-06-08 10:23] LABS: Basophils # 0.1 10^3/uL (0.0-0.1); Basophils % 0.7 %; Eosinophils # 0.1 10^3/uL (0.0-0.8); Eosinophils % 1.3 %; Hematocrit 39.2 % (37.0-47.0); Hemoglobin 12.6 g/dL (11.5-15.3); Lymphocytes # 1.6 10^3/uL (0.8-4.8); Lymphocytes % 23.5 %; Mean Corpuscular HGB Conc 32.1 g/dL (30.0-36.0); Mean Corpuscular Hemoglobin 29.4 pg (28.0-34.0); Mean Corpuscular Volume 91.4 fl (81-99); Mean Platelet Volume 9.9 fL (7.4-10.4); Monocytes # 0.3 10^3/uL (0.2-0.9); Monocytes % 4.7 %; Neutrophils # 4.81 10^3/uL (1.8-7.7); Neutrophils % 69.2 %; Nucleated Red Blood Cells % 0 %; Platelet Count 215 10^3/cmm (130-400); Red Blood Count 4.29 10^6/uL (4.1-5.3); Red Cell Distribution Width 12.9 % (12.1-15.1)
[2021-06-08 10:43] LABS: Alanine Aminotransferase 11 U/L (0-33); Albumin Level 4.3 g/dL (3.5-5.2); Alkaline Phosphatase 58 IU/L (35-105); Anion Gap 12.5 (5-19); Aspartate Amino Transferase 12 U/L (0-32); Blood Urea Nitrogen 10 mg/dL (6-20); C Reactive Protein 3.8 mg/L (0.0-4.9); Calcium 9.3 mg/dL (8.5-10.5); Carbon Dioxide 27 mmol/L (22-29); Chloride 102 mmol/L (98-107); Globulin 3.2 g/dL (1.3-4.6); Glomerular Filtration Rate 78.7 mL/min (90-130); Glucose 94 mg/dL (65-115); Osmolality Calculated 283 mOsm/kg (285-295); Potassium 4.5 mmol/L (3.5-5.1); Sodium 137 mmol/L (136-145); Total Bilirubin 0.2 mg/dL (0.15-1.2); Total Protein 7.5 g/dL (6.6-8.7)
[2021-06-08 11:25] LABS: Erythrocyte Sedimentation Rate 20 mm/hr (0-15)
== END 2021-06-08 09:47 | disposition home or self-care (01) ==
LOC: LAB 09:53
PROVIDERS: PCP Nurse Practitioner Family; Visit Provider Internal Medicine
DX: M25.50 Pain in unspecified joint (principal); R70.0 Elevated erythrocyte sedimentation rate; R76.8 Other specified abnormal immunological findings in serum; Z79.899 Other long term (current) drug therapy
CPT/HCPCS: 36415; 80053; 85025; 85651; 86140

== ENCOUNTER 2021-06-22 09:35 | Outpatient (CLI) | payer BC, SELFPAY ==
--- NOTE | 2021-06-22 10:00 | FL_ITS ---
WS: [id number] SMALL BOWEL EXAMINATION CLINICAL INFORMATION: R14.0 - Abdominal distension (gaseous) COMPARISON: December 28, 2018 Upper GI small bowel follow-through FINDINGS:Contrast material: 50/50 thin barium sulfate suspension. Transit time: 10 Minutes (normal = 30 - 240 minutes) Prominent esophageal reflux extending to the upper thoracic esophagus in the supine position. Small e sophageal hiatal hernia similar to 2019. Prior postoperative changes gastric sleeve similar in appear ance to 2019. Cholecystectomy clips. Small bowel is normal in appearance. No small bowel stricture or adhesion. The terminal ileum and ile ocecal valve appear normal. FLUOROSCOPY TIME: 1.0 min minutes FL/FL small bowel series* [id number] IMPRESSION: 1. Rapid small bowel transit at approximately 10 minutes. 2. Small bowel is normal in appearance. No adhesion or stricture. 3. Prior gastric sleeve procedure. 4. Prominent reflux is visualized in the supine position to the upper thoracic esophagus. Small esophageal hiatal hernia.
== END 2021-06-22 09:36 | disposition home or self-care (01) ==
PROVIDERS: PCP Nurse Practitioner Family; Visit Provider Surgery
DX: R14.0 Abdominal distension (gaseous) (principal); Z98.84 Bariatric surgery status; K21.9 Gastro-esophageal reflux disease without esophagitis
CPT/HCPCS: 74250

== ENCOUNTER 2021-07-13 14:30 | Outpatient (CLI) | payer BC, SELFPAY ==
--- NOTE | 2021-07-13 14:36 | MM_ITS ---
WS: [id number] BILATERAL SCREENING DIGITAL MAMMOGRAM WITH CAD HISTORY: SCREENING COMPARISON: 03/16/2019 Bilateral CC and MLO views submitted. Computer aided detection analyzed. Breast composition: There are scattered areas of fibroglandular density. No suspicious masses, microc alcifications or architectural distortion. MM/[place] [id number] IMPRESSION: BI-RADS: 1-Negative FOLLOW UP: 1 Year Follow-up
== END 2021-07-13 14:31 | disposition home or self-care (01) ==
LOC: RADSHAW 14:34
PROVIDERS: PCP Nurse Practitioner Family; Visit Provider Nurse Practitioner Family
DX: Z12.31 Encounter for screening mammogram for malignant neoplasm of breast (principal)
CPT/HCPCS: 77067

== ENCOUNTER → 2021-07-31 09:49 | Outpatient (BNVA) | payer BC, SELFPAY | PROVIDERS: PCP Nurse Practitioner Family; Visit Provider Surgery | DX: Z01.812 Encounter for preprocedural laboratory examination (principal); Z20.822 Contact with and (suspected) exposure to COVID-19 | CPT/HCPCS: 87635 ==

== ENCOUNTER 2021-08-05 06:43 | Day surgery (SDC) | payer BC, SELFPAY ==
[2021-07-30 13:28] VITALS: BMI 36.0
--- NOTE | 2021-08-05 07:03 | P.ANESASSM_ITS ---
Pre-Anesthetic Assessment Pre-Anesthetic Assessment: Height/Weight: Height 1.57 m Weight 89.358 kg Preop Diagnosis: Bloating and change in bowel habits Proposed Procedure: Operation Date: 08/05/21 08:15 Proposed Procedures p EGD/colon 05372 21914 K21.9 K92.1(Not Applicable) - Chris Tellez MD s Colonoscopy(Not Applicable) - Chris Tellez MD Was Beta Mallorie taken within 24 hours: N/A Was Clonidine taken within 24 hours: N/A Social: Social History: No tobacco Exam: Pre-Anes Outpt Exam: alert, oriented x 3, clear to auscultation bilaterally and regular rate & rhythm Airway: Submandibular: WNL Cervical ROM: WNL MP: 2 Pulmonary: Pulmonary: Cough GI: GI: GERD and Hiatus hernia Comments: s/p gastric sleeve Anesthetic Plan: ASA status: 2 Anesthesia: Anesthesia Evaluation and MAC Risk of > 500 ml blood loss (7ml/kg in children): No PFSH Anesthesia PFSH: Medical History Chest pain Costochondritis Frequent falls Gastritis Hilar lymphadenopathy Shortness of breath Surgical History H/O laparoscopy History of esophagogastroduodenoscopy (EGD) (~10/2019) Hx of cholecystectomy Hx of hysterectomy Hx of laparoscopic partial gastrectomy Hx of oophorectomy Family History Denies family history of Anesthesia complication Bleeding disorder Social History Quit status (tobacco): has quit using tobacco Year quit tobacco: 2014 - .025PPD x15yrs Second hand smoke exposure: No Smoking risk assessment/counseling performed?: No Alcohol intake: current Alcohol intake frequency: few times a month Lives independently: Yes Household members: spouse Marital status: Highest education level completed: High School Graduate service: No Current occupational status: employed Current occupation: [employer] Current occupational exposures/hazards: No Pets and animals: Yes History of recent travel: No Sexually active: Yes Current gender identity: Female Sarah/Islam: Hoahaoism Data Anesthesia Cardiac Studies: No Data to Display
[2021-08-05 07:22] VITALS: BP 116/82; PULSE 77; RESP 16; TEMP 36.6; O2SAT 100
--- NOTE | 2021-08-05 07:32 | P.HP_ITS ---
Same Day Surgery H&P Indication for Procedure/HPI DATE OF PROCEDURE: August 05, 2021 CHIEF COMPLAINT/INDICATIONFOR SURGICAL PROCEDURE: Bloating PREOP DIAGNOSIS: Bloating and change in bowel habits PLANNED PROCEDRUE: Operation Date: 08/05/21 08:15 Proposed Procedures p EGD/colon 90152 [id number] K21.9 K92.1(Not Applicable) - Chris Tellez MD s Colonoscopy(Not Applicable) - Chris Tellez MD 06/10/2021 This is a pleasant 41 years old female patient well-known to me undergone uneventful laparoscopic sleeve gastrectomy before 3 years and she lost about 70 pounds. 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 And also she feels that she is full after a few bites. Otherwise she has been compliant with her bariatric vitamins, proteins and exercise. And she gives a history of gallbladder surgery. Back in December 2018 approximately 1 year out of patient's surgery undergone upper GI study that showed new 1. Prior postoperative changes gastric sleeve with typical postoperative narrowing proximal stomach 2. Prominence spontaneous gastroesophageal reflux on the upright and supine imaging to the level of the hypopharynx. 3. Associated mild esophageal dysmotility in the distal esophagus with esophagitis. 4. Small esophageal hiatal hernia. Patient reports to me that she is switched from gabapentin to Lyrica and she has been having issues with the medicine. Interim history 08/05/2021. Patient comes today for diagnostic EGD and colonoscopy ROS All systems have been reviewed negative except as per the above or per problem list Medications/Allergies* Home Medications Medication Instructions Recorded Confirmed Type pregabalin 75 mg capsule 75 mg PO BID 05/05/21 08/05/21 History hydroxychloroquine [Plaquenil] 200 mg PO BID 07/30/21 08/05/21 History spironolactone [Aldactone] 12.5 mg PO DAILY 07/30/21 08/05/21 History tizanidine 2 mg PO Q8H PRN 07/30/21 08/05/21 History Allergies/Adverse Reactions Allergy/AdvReac Type Severity Reaction Status Date / Time No Known Allergies Allergy Verified 08/05/21 07:50 Pertinent History/Comorbid Conditions* Medical History (Updated 06/12/21 @ 13:52 by Chris Tellez MD) Chest pain Costochondritis Frequent falls Gastritis Hilar lymphadenopathy Shortness of breath Surgical History (Updated 06/12/21 @ 13:52 by Chris Tellez MD) H/O laparoscopy History of esophagogastroduodenoscopy (EGD) (~10/2019) Hx of cholecystectomy Hx of hysterectomy Hx of laparoscopic partial gastrectomy Hx of oophorectomy Family History (Updated 11/07/19 @ 14:29 by Ivania Cantor RN) Denies family history of Anesthesia complication Bleeding disorder Social History Quit status (tobacco): has quit using tobacco Year quit tobacco: 2014 - .025PPD x15yrs Second hand smoke exposure: No Smoking risk assessment/counseling performed?: No Alcohol intake: current Alcohol intake frequency: few times a month Lives independently: Yes Household members: spouse Marital status: Highest education level completed: High School Graduate service: No Current occupational status: employed Current occupation: [employer] Current occupational exposures/hazards: No Pets and animals: Yes History of recent travel: No Sexually active: Yes Current gender identity: Female Sarah/Mormon: Yazidi Pertinent Exam Findings alert, oriented x 3, clear to auscultation bilaterally, regular rate & rhythm and procedure specific exam findings (Abdominal examination nontender nondistended soft) Recommendations Surgery/Procedure today (EGD and colonoscopy) Other Plans: Plan of care; After thorough history and physical examination and reviewing the chart, plan to perform a diagnostic esophagogastroduodenoscopy and diagnostic colonoscopy with possible biopsy and possible polypectomy. I discussed with the patient in detail the risks,benefits,alternatives and indications.The risk of aspiration, bleeding, soft tissue injury, perforation of the stomach/esophagus/colon and other potential concomitant complications were explained to the patient in details also the potential need for Thoracotomy and or Laproscoy/Laparotomy to repair any related complications including but not limited to colectomy and or Closotomy. The patient understood this well and did agree to proceed. Rationale was carefully and clearly discussed with the patient.Appropriate informed consent have been reviewed and signed Verbal and written Instructions were given to the patient for colonoscopy prep Coding Level of Care Code Acute Research Manager for g Fwd
[2021-08-05 07:38] VITALS: BP 122/90; PULSE 73; RESP 18; TEMP 36.6; O2SAT 98
--- NOTE | 2021-08-05 07:47 | PC.NURSE ---
Disregard info entered in 08/05/21 0722 column. Entered in error. Unable to undo.
[2021-08-05] MEDS: sodium chloride 0.9% 1,000 ML 30 ML IV (08:10)
[2021-08-05 09:16] VITALS: BP 110/75; PULSE 76; RESP 16; TEMP 36.1; O2SAT 93
[2021-08-05 09:28] VITALS: BP 131/85; PULSE 70; RESP 18; O2SAT 97
--- NOTE | 2021-08-05 09:52 | ANE.PACU2 ---
Inpatient post-anesthesia follow up: Airway intact: Yes Vital signs: Temperature 97 F Pulse Rate 70 Respiratory Rate 18 Blood Pressure 131/85 Pulse Oximetry 97 Oxygen Delivery Me thod Room Air Oxygen Flow Rate 3 Fraction of Inspir ed Oxygen Hydration adequate: Yes Nausea and vomiting: No Pain level: 1 Mental status: Baseline
[2021-08-06 13:05] LABS: H. Pylori / CLO Test Negative
== END 2021-08-05 09:37 | disposition home or self-care (01) ==
PROVIDERS: PCP Nurse Practitioner Family; Visit Provider Surgery
PROC: 0DJ08ZZ Inspection of Upper Intestinal Tract, Via Natural or Artificial Opening Endoscopic (ICD-10-PCS; CPT 43235; principal; 2021-08-05 08:15)
PROC: 0DJD8ZZ Inspection of Lower Intestinal Tract, Via Natural or Artificial Opening Endoscopic (ICD-10-PCS; CPT 45378; 2021-08-05 08:15)
DX: R19.4 Change in bowel habit (principal); R14.0 Abdominal distension (gaseous); Z87.891 Personal history of nicotine dependence; K21.9 Gastro-esophageal reflux disease without esophagitis; Z98.84 Bariatric surgery status
CPT/HCPCS: 43239; 45378; 87077; 88305; 96360; J2704; J7030

== ENCOUNTER 2021-09-02 16:54 | Outpatient (CLI) | payer BC, SELFPAY ==
--- NOTE | 2021-09-02 16:59 | XR_ITS ---
WS: [id number] LEFT KNEE: 3 VIEW(S) TECHNIQUE: AP, oblique(s) and lateral. HISTORY: M25.562 - Pain in left knee COMPARISON: None available. No fracture or dislocation. No joint space narrowing or osteophytes. No joint effusion. No soft tissue abnormality. XR/XR knee LT 3V* [id number] IMPRESSION: Normal LEFT knee.
== END 2021-09-02 16:55 | disposition home or self-care (01) ==
PROVIDERS: PCP Nurse Practitioner Family; Visit Provider Nurse Practitioner Family
DX: M25.562 Pain in left knee (principal)
CPT/HCPCS: 73562

== ENCOUNTER 2021-10-30 08:55 | Emergency (ER) | payer BC, SELFPAY ==
[2021-10-30 09:02] VITALS: BP 118/82; PULSE 99; RESP 14; TEMP 36.8; O2SAT 100
--- NOTE | 2021-10-30 10:00 | CT_ITS ---
WS: [id number] CT LUMBAR SPINE, noncontrast. HISTORY: severe L lower back pain TECHNIQUE: Contiguous 2.5 mm axial imaging are performed. Sagittal and coronal reformats are submitte d and reviewed. All CT scans at [facility] use at least one of these dose optimization techni ques: automated exposure control; mA and/or kV adjustment per patient size (includes targeted exams w here dose is matched to clinical indication); or iterative reconstruction. IV contrast: None DLP: 2140.49 mGy.cm COMPARISON: None available. Normal lumbar alignment with no loss of disc space height or vertebral body height. L1-2: Normal. L2-3: Normal. L3-4: Mild annular disc bulging. No stenosis. L4-5: Mild annular disc bulging. Very shallow LEFT foraminal disc protrusion. No significant contact on the nerve roots. L5-S1: LEFT paracentral and proximal foraminal disc protrusion. There is minimal contact on the LEFT S1 nerve root but no displacement. No significant stenosis. Visualized pelvis is negative. No retroperitoneal abnormality. Prior cholecystectomy. CT/CT lumbar spine wo con* [id number] IMPRESSION: 1. Shallow LEFT paracentral and proximal foraminal disc protrusion. Very minim al disc contact on the LEFT S1 nerve root. 2. Shallow LEFT foraminal disc protrusion at L4-5 with no contact on the nerve roots. 3. No fracture.
--- NOTE | 2021-10-30 10:01 | W.ED.BACK ---
HPI - Back Pain/Injury General: Chief Complaint: Back Pain/Injury Stated Complaint: LEFT LOWER BACK AND HIP PAINS Time Seen by Provider: 10/30/21 09:05 Source: patient Mode of arrival: ambulatory Limitations: no limitations History of Present Illness: HPI Narrative: Patient is a 41-year-old female presents to ED today with complaint of left lower back pain. Patient tells me yesterday evening she bent over to pet her dog and immediately felt pain that caused her to fall to the ground. Patient states she had to have help to get back up. She states she treated her back conservatively for the remainder of the evening and this morning. She states she was slow to get out of bed this morning and when she went to the bathroom and turned to wipe she almost fell to the ground secondary to pain. Patient tells me she is not able to ambulate or bear weight on her left lower extremity secondary to the pain in her left lower back and buttock. She is not complaining of numbness, tingling, loss of sensation. She has not noticed any color/temperature changes to the extremity. No loss of bowel or urine incontinence. MD elicited complaint: back pain Timing: constant Severity: severe Pain scale (0-10): 10 Similar Symptoms Previously: No Exacerbating factors: movement and walking Relieving factors: none Context: while lifting and turning/twisting Associated symptoms: Reports difficulty walking (secondary to back pain); Deny abdominal pain, chills, dysuria, fatigue, fever(s) or hematuria Work related injury: No Review of Systems Const: Denies: fever(s), chills, body aches, fatigue or malaise Card: Denies: chest pain Resp: Denies: dyspnea GI: Denies: abdominal pain : Denies: flank pain, dysuria or hematuria Musc: Reports: back pain; Denies: neck pain, extremity pain, extremity swelling, joint pain or joint swelling Neuro: Reports: difficulty walking (secondary to back pain); Denies: headache(s), numbness in extremities, weakness in extremities, sensory changes or dizziness PFS ED PFSH: Medical History Chest pain Costochondritis Frequent falls Gastritis Hilar lymphadenopathy Shortness of breath Surgical History H/O laparoscopy History of esophagogastroduodenoscopy (EGD) (~10/2019) Hx of cholecystectomy Hx of hysterectomy Hx of laparoscopic partial gastrectomy Hx of oophorectomy Family History Denies family history of Anesthesia complication Bleeding disorder Social History Quit status (tobacco): has quit using tobacco Year quit tobacco: 2015 - .025PPD x15yrs Second hand smoke exposure: No Smoking risk assessment/counseling performed?: No Alcohol intake: current Alcohol intake frequency: few times a month Lives independently: Yes Household members: spouse Marital status: Highest education level completed: High School Graduate service: No Current occupational status: employed Current occupation: [employer] Current occupational exposures/hazards: No Pets and animals: Yes History of recent travel: No Sexually active: Yes Current gender identity: Female Sarah/Pentecostal: Moravian Physical Exam Const: COMMON NORMALS: no acute distress, patient oriented x3 and alert GENERAL APPEARANCE: cooperative and in distress (secondary to pain) NUTRITIONAL APPEARANCE: overweight Resp: COMMON NORMALS: normal respiratory effort and clear to auscultation bilaterally AUSCULTATION: clear to auscultation bilaterally Cardio: COMMON NORMALS: regular rate and regular rhythm RATE: regular rate RHYTHM: regular rhythm Back/Pelvis: THORACIC SPINE/UPPER BACK: Yes normal to inspection, Yes thoracic ROM normal, No thoracic spinal tenderness and No paraspinal muscle tenderness LUMBAR SPINE/LOWER BACK: Yes ROM limited, Yes lumbar spinal tenderness (mid to lower L spine), Yes paraspinal muscle tenderness Lumbar paraspinal muscle tenderness: left, No paraspinal muscle spasm, Yes straight leg raise positive left and Yes bend over test abnormal PELVIS: Yes sciatic notch tenderness on the left SACROILIAC JOINTS: Yes SI joint(s) abnormal SI joint details: tender to palpation (left) Extremity: COMMON NORMALS: normal to inspection and full ROM GENERAL: Yes normal exam except as noted Neuro: COMMON NORMALS: patient oriented x3, moves all extremities, no focal motor deficits and no sensory deficits noted SENSORIUM/ORIENTATION: Yes alert Skin: COMMON NORMALS: no rashes or lesions noted GENERAL SKIN EXAM: no rashes or lesions noted Course ED course: Patient during her stay began complaining of chest pains stating it felt like 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 Patient has had many of these episodes previously. She has seen cardiology for these and has had stress tests/echos which were normal and was told by cardiology they were non-cardiac related. Will go ahead and obtain EKG/CXR imaging. Vital Signs: Vital signs: Vital Signs Temperature 98.3 F 10/30/21 09:02 Pulse Rate 80 10/30/21 12:00 Respiratory Rate 20 H 10/30/21 12:00 Blood Pressure 145/96 10/30/21 12:00 Pulse Oximetry 94 10/30/21 12:00 MDM - Back Pain/Injury MDM Narrative: Medical decision making narrative: Patient already taking methotrexate, tizanidine, and celebrex for treatment of psoriatic arthritis. Will add hydrocodone for temporary treatment of her discomfort and recommend she follow up with PCP. As stated earlier these intermittent chest pains have been present for over a year. She has received thorough evaluation from GI and cardiology. She did gain relief from IV Ativan here. She can also follow-up with PCP regarding this. CXR and EKG normal. Imaging Data^: CT lumbar: Radiologist's impression: [address] [address]G Scan ReportSigned Patient: Linda Spicer #: [id number]: 1980Acct#:[id number]/Sex: 41 / FADM Date: 10/30/21Loc: [facility]/Bed:Attending Dr: Ordering Provider/Ordering MD: Afua Martin Date of Service: 10/30/21 Procedure(s): CT lumbar spine wo con* [id number] Accession Number(s): [id number] Report Number: [id number] WS: [id number] CT LUMBAR SPINE, noncontrast. HISTORY: severe L lower back pain TECHNIQUE: Contiguous 2.5 mm axial imaging are performed. Sagittal and coronal reformats are submitted and reviewed. All CT scans at [facility] use at least one of these dose optimization techniques: automated exposure control; mA and/or kV adjustment per patient size (includes targeted exams where dose is matched to clinical indication); or iterative reconstruction. IV contrast: None DLP: 2140.49 mGy.cm COMPARISON: None available. Normal lumbar alignment with no loss of disc space height or vertebral body height. L1-2: Normal. L2-3: Normal. L3-4: Mild annular disc bulging. No stenosis. L4-5: Mild annular disc bulging. Very shallow LEFT foraminal disc protrusion. No significant contact on the nerve roots. L5-S1: LEFT paracentral and proximal foraminal disc protrusion. There is minimal contact on the LEFT S1 nerve root but no displacement. No significant stenosis. Visualized pelvis is negative. No retroperitoneal abnormality. Prior cholecystectomy. CT/CT lumbar spine wo con* [id number] IMPRESSION: 1. Shallow LEFT paracentral and proximal foraminal disc protrusion. Very minimal disc contact on the LEFT S1 nerve root. 2. Shallow LEFT foraminal disc protrusion at L4-5 with no contact on the nerve roots. 3. No fracture. Dictated By:Rebecca Currie DOSigned By:Rebecca Currie DOSigned Date/Time:10/30/21 1034DD/ 1022 CXR: Radiologist's impression: [facility] [address], [place] [address]PDdk ReportSigned Patient: Linda Spicer #: [id number]: 1980Acct#:[id number]/Sex: 41 / FADM Date: 10/30/21Loc: [facility]/Bed:Attending Dr: Ordering Provider/Ordering MD: Afua Martin Date of Service: 10/30/21 Procedure(s): XR chest 1V portable [id number] Accession Number(s): [id number] Report Number: [id number] WS: [id number] Exam: XR chest 1V portable [id number] Date/Time of Exam: 10/30/2021 12:22 PM Reason For Exam: chest pain Comparison 10/16/2020. Findings: The lungs are clear and fully expanded. Costophrenic angles are sharp. No infiltrates. Bronchovascular relief appears normal. Cardiac silhouette is unremarkable. Bony elements are intact. XR/XR chest 1V portable [id number] IMPRESSION: Unremarkable chest radiograph. Dictated By:Welshigned By:Sergo Howard Date/Time:10/30/21 1237DD/ 1237 Discharge Plan Discharge Patient Disposition: Home Clinical Impression: Protrusion of lumbar intervertebral disc Condition: Stable Prescriptions: New hydrocodone-acetaminophen 5-325 mg tablet 1 tab PO Q4H PRN (Reason: pain) Qty: 15 RF: 0 No Action pregabalin [Lyrica] 75 mg capsule 75 mg PO BID RF: 0 alosetron [Lotronex] 0.5 mg tablet 0.5 mg PO DAILY Qty: 30 RF: 0 escitalopram oxalate 10 mg tablet See Rx Instructions .ROUTE .COMPLEX Qty: 90 RF: 1 pantoprazole 40 mg tablet,delayed release (DR/EC) See Rx Instructions .ROUTE .COMPLEX Qty: 90 RF: 2 tizanidine 2 mg Tablet 2 mg PO Q8H PRN (Reason: Muscle Spasm) RF: 0 spironolactone [Aldactone] 25 mg tablet 12.5 mg PO DAILY RF: 0 hydroxychloroquine [Plaquenil] 200 mg tablet 200 mg PO BID RF: 0 Discharge Orders: Discharge ED (Routine); Ordered 10/30/21 Ordered By: Afua Martin Referrals: Aria Schwarz FNP [Primary Care Provider] - Patient Instructions: Opioid Safety Activity Restrictions/Additional Instructions: [facility] is committed to fighting the nationwide opiate epidemic. We are providing ALL patients with information regarding opiate safety. If you received opiate pain medication during your stay or if you received a prescription for opiate pain medication-please review this handout. If not, you may disregard. Thank you. As we discussed please follow-up with primary care in regards to your lower back pain if pain persist past 1 to 2 weeks. Coding Level of Care Code ED Lapel Padder for Ricky Fwd Exam Detailed
[2021-10-30 10:42] VITALS: RESP 16; O2SAT 98
[2021-10-30] MEDS: morphine 4 mg/mL SDV 1 mL IVP (10:42)
[2021-10-30] MEDS: ketorolac 60 mg/2 mL INJ 30 MG IVP (10:43)
[2021-10-30] MEDS: orphenadrine 30 mg/mL Inj 2 mL 60 MG IV (10:44)
[2021-10-30] MEDS: dexamethasone 10 mg/mL INJ 8 MG IV (10:46)
[2021-10-30 12:00] VITALS: BP 145/96; PULSE 80; RESP 20; O2SAT 94
[2021-10-30] MEDS: LORazepam 2 mg/mL INJ 1 mL 1 MG IVP (12:18)
--- NOTE | 2021-10-30 12:22 | ECG_ITS ---
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 Measurements Intervals [place] Rate: 71 P: 52 MA: 158 QRS: 40 QRSD: 89 T: 44 QT: 371 QTc: 403 Interpretive Statements SINUS RHYTHM INTERPRETATION BASED ON A DEFAULT AGE OF 40 YEARS Compared to ECG 08/29/2020 16:28:30 No significant changes Electronically Signed On 10-31-2021 14:18:33 CASKET INSPECTOR by Jana Lr M.D. [id number] f
--- NOTE | 2021-10-30 12:22 | XR_ITS ---
WS: [email or web address] Exam: XR chest 1V portable [id number] Date/Time of Exam: 10/30/2021 12:22 PM Reason For Exam: chest pain Comparison 10/16/2020. Findings: The lungs are clear and fully expanded. Costophrenic angles are sharp. No infiltrates. Bronchovascula r relief appears normal. Cardiac silhouette is unremarkable. Bony elements are intact. XR/XR chest 1V portable [id number] IMPRESSION: Unremarkable chest radiograph.
[2021-10-30 13:30] VITALS: BP 123/78; PULSE 71; RESP 16; O2SAT 94
== END 2021-10-30 13:41 | disposition home or self-care (01) ==
PROVIDERS: Emergency Provider Physician Assistant; PCP Nurse Practitioner Family
DX: M51.26 Other intervertebral disc displacement, lumbar region (principal); Z87.891 Personal history of nicotine dependence
CPT/HCPCS: 71045; 72131; 93005; 96374; 96375; 99284; J1100; J1885; J2060; J2270; J2360

== ENCOUNTER 2022-01-05 11:15 | Outpatient (CLI) | payer BC, SELFPAY ==
[2022-01-05 12:41] LABS: Basophils % 0.4 %; Eosinophils # 0.1 10^3/uL (0.0-0.8); Eosinophils % 1.3 %; Lymphocytes % 23.1 %; Mean Corpuscular HGB Conc 32.4 g/dL (30.0-36.0); Mean Corpuscular Hemoglobin 29.8 pg (28.0-34.0); Mean Corpuscular Volume 91.8 fl (81-99); Mean Platelet Volume 9.6 fL (7.4-10.4); Monocytes # 0.3 10^3/uL (0.2-0.9); Monocytes % 3.5 %; Neutrophils % 71.5 %; Nucleated Red Blood Cells % 0 %; Platelet Count 241 10^3/cmm (130-400); Red Blood Count 4.03 10^6/uL (4.1-5.3); White Blood Count 8.5 10^3/uL (4.0-10.0)
[2022-01-05 12:49] LABS: Erythrocyte Sedimentation Rate 17 mm/hr (0-15)
[2022-01-05 13:11] LABS: Alanine Aminotransferase 35 U/L (0-33); Albumin Level 4.4 g/dL (3.5-5.2); Alkaline Phosphatase 70 IU/L (35-105); Anion Gap 16.5 (5-19); Aspartate Amino Transferase 22 U/L (0-32); Blood Urea Nitrogen 12 mg/dL (6-20); C Reactive Protein 5.9 mg/L (0.0-4.9); Calcium 9.6 mg/dL (8.5-10.5); Carbon Dioxide 25 mmol/L (22-29); Chloride 101 mmol/L (98-107); Globulin 3.3 g/dL (1.3-4.6); Glomerular Filtration Rate 78.3 mL/min (90-130); Glucose 89 mg/dL (65-115); Osmolality Calculated 287 mOsm/kg (285-295); Potassium 3.5 mmol/L (3.5-5.1); Sodium 139 mmol/L (136-145); Total Bilirubin 0.2 mg/dL (0.15-1.2); Total Protein 7.7 g/dL (6.6-8.7)
== END 2022-01-05 11:16 | disposition home or self-care (01) ==
PROVIDERS: PCP Nurse Practitioner Family; Visit Provider Internal Medicine
DX: M79.7 Fibromyalgia (principal); Z79.899 Other long term (current) drug therapy; M06.4 Inflammatory polyarthropathy
CPT/HCPCS: 80053; 85025; 85651; 86140

== ENCOUNTER 2022-04-22 09:11 | Outpatient (CLI) | payer BC, SELFPAY ==
[2022-04-22 09:55] LABS: Basophils % 0.4 %; Eosinophils # 0.1 10^3/uL (0.0-0.8); Eosinophils % 1.6 %; Hematocrit 39.6 % (37.0-47.0); Hemoglobin 12.8 g/dL (11.5-15.3); Lymphocytes # 1.6 10^3/uL (0.8-4.8); Mean Corpuscular HGB Conc 32.3 g/dL (30.0-36.0); Mean Corpuscular Hemoglobin 30.3 pg (28.0-34.0); Mean Corpuscular Volume 93.6 fl (81-99); Mean Platelet Volume 10.1 fL (7.4-10.4); Monocytes # 0.3 10^3/uL (0.2-0.9); Monocytes % 3.8 %; Neutrophils # 4.78 10^3/uL (1.8-7.7); Neutrophils % 69.9 %; Platelet Count 268 10^3/cmm (130-400); Red Blood Count 4.23 10^6/uL (4.1-5.3); Red Cell Distribution Width 13.8 % (12.1-15.1); White Blood Count 6.8 10^3/uL (4.0-10.0)
[2022-04-22 09:56] LABS: Nucleated Red Blood Cells % 0 %
[2022-04-22 10:06] LABS: Erythrocyte Sedimentation Rate 6 mm/hr (0-15)
[2022-04-22 10:21] LABS: Alanine Aminotransferase 23 U/L (0-33); Albumin Level 4.7 g/dL (3.5-5.2); Alkaline Phosphatase 65 IU/L (35-105); Aspartate Amino Transferase 18 U/L (0-32); Blood Urea Nitrogen 10 mg/dL (6-20); C Reactive Protein 9.1 mg/L (0.0-4.9); Calcium 9.6 mg/dL (8.5-10.5); Carbon Dioxide 27 mmol/L (22-29); Chloride 104 mmol/L (98-107); Glomerular Filtration Rate 68.3 mL/min (90-130); Glucose 95 mg/dL (65-115); Osmolality Calculated 293 mOsm/kg (285-295); Sodium 142 mmol/L (136-145); Total Bilirubin 0.4 mg/dL (0.15-1.2); Total Protein 7.7 g/dL (6.6-8.7)
== END 2022-04-22 09:12 | disposition home or self-care (01) ==
PROVIDERS: PCP Nurse Practitioner Family; Visit Provider Internal Medicine
DX: M79.7 Fibromyalgia (principal); M06.4 Inflammatory polyarthropathy; Z79.899 Other long term (current) drug therapy
CPT/HCPCS: 36415; 80053; 85025; 85651; 86140

== ENCOUNTER 2022-07-23 08:27 | Outpatient (CLI) | payer BC, SELFPAY ==
--- NOTE | 2022-07-23 08:49 | MM_ITS ---
WS: [email or web address] Bilateral screening 3D tomosynthesis digital mammogram, 07/23/2022 Clinical Data: SCREEN Comparison: 07/13/2021, 03/16/2019, 08/30/2017. Findings: The breast parenchymal pattern shows fibroglandular tissue. No spiculated masses or clustered calcifi cations are seen. There are no secondary signs of carcinoma. MM/[place] [id number] Impression: 1. Negative bilateral mammogram unchanged. 2. Recommend annual screening mammograms. BIRADS: 1-Negative FOLLOW UP: 1 Year Follow-up The CAD stock checker was used.
== END 2022-07-23 08:28 | disposition home or self-care (01) ==
LOC: RAD 08:29
PROVIDERS: PCP Nurse Practitioner Family; Visit Provider Nurse Practitioner Family
DX: Z12.31 Encounter for screening mammogram for malignant neoplasm of breast (principal)
CPT/HCPCS: 77063; 77067

== ENCOUNTER → 2022-07-29 10:15 | Outpatient (BNVA) | payer BC, SELFPAY | PROVIDERS: PCP Nurse Practitioner Family; Visit Provider Nurse Practitioner Family | DX: L98.9 Disorder of the skin and subcutaneous tissue, unspecified (principal); M06.4 Inflammatory polyarthropathy; M79.7 Fibromyalgia; Z79.620 Long term (current) use of immunosuppressive biologic; Z79.899 Other long term (current) drug therapy | CPT/HCPCS: 80053; 85025; 85651; 86140 ==

== ENCOUNTER 2022-08-30 12:12 | Emergency (ER) | payer BC, SELFPAY ==
[2022-08-30 12:22] VITALS: BP 140/87; PULSE 69; RESP 14; TEMP 36.3; O2SAT 99; BMI 30.9
[2022-08-30 12:48] LABS: Protein Urine Neg (Negative); Specific Gravity, Urine 1.015 (1.005-1.030); Urine Appearance Clear (CLEAR); Urine Color Yellow (Yellow); pH Urine 5 (5-7)
[2022-08-30 12:49] LABS: Add Urine Culture? No; Add Urine Microscopic? YES; Bacteria Urine 2+ /hpf; Bilirubin Urine Neg (Negative); Blood Urine 2+ (Negative); Glucose Urine UA Norm (Normal); Ketones Urine 1+ (Negative); Leukocyte Esterase Urine Negative (Negative); Mucus Urine 2+ /hpf; Nitrate Urine Negative (Negative); RBC Urine 0-4 /hpf (0-2); Urobilinogen Urine Norm (Negative); WBC Urine 0-4 /hpf (0-5)
[2022-08-30 13:43] LABS: Basophils % 0.2 %; Eosinophils % 0.4 %; Hematocrit 37.8 % (37.0-47.0); Hemoglobin 12.4 g/dL (11.5-15.3); Lymphocytes # 1.2 10^3/uL (0.8-4.8); Lymphocytes % 13.9 %; Mean Corpuscular HGB Conc 32.8 g/dL (30.0-36.0); Mean Corpuscular Hemoglobin 31.2 pg (28.0-34.0); Mean Corpuscular Volume 95.2 fl (81-99); Mean Platelet Volume 10.3 fL (7.4-10.4); Monocytes # 0.3 10^3/uL (0.2-0.9); Monocytes % 3.8 %; Neutrophils # 7.26 10^3/uL (1.8-7.7); Neutrophils % 81.4 %; Nucleated Red Blood Cells % 0 %; Platelet Count 220 10^3/cmm (130-400); Red Blood Count 3.97 10^6/uL (4.1-5.3); Red Cell Distribution Width 13.3 % (12.1-15.1); White Blood Count 8.9 10^3/uL (4.0-10.0)
[2022-08-30 14:03] LABS: Alanine Aminotransferase 14 U/L (0-33); Albumin Level 4.6 g/dL (3.5-5.2); Alkaline Phosphatase 68 U/L (35-105); Anion Gap 16.4 (5-19); Aspartate Amino Transferase 11 U/L (0-32); Blood Urea Nitrogen 8 mg/dL (6-20); Calcium 9.7 mg/dL (8.5-10.5); Carbon Dioxide 27 mmol/L (22-29); Chloride 102 mmol/L (98-107); Creatinine Clr Calc Pharmacy 99.3372; Globulin 3.2 g/dL (1.3-4.6); Glomerular Filtration Rate 91.3 mL/min (90-130); Glucose 93 mg/dL (65-115); Lipase 41 U/L (13-60); Osmolality Calculated 292 mOsm/kg (285-295); Potassium 3.4 mmol/L (3.5-5.1); Sodium 142 mmol/L (136-145); Total Bilirubin 0.3 mg/dL (0.15-1.2); Total Protein 7.8 g/dL (6.6-8.7)
--- NOTE | 2022-08-30 14:50 | CT_ITS ---
WS: [id number] CT ABDOMEN AND PELVIS WITH CONTRAST HISTORY: Clinical features of carcinoid periumbilical, LUQ, nausea, vomiting and diarrhea. TECHNIQUE: Imaging performed of the abdomen and pelvis with IV contrast. Single phase imaging of the abdomen. Coronal and sagittal reformats are submitted. All CT scans at [facility] use at [address] one of these dose optimization techniques: automated exposure control; mA and/or kV adjustment per patient size (includes targeted exams where dose is matched to clinical indication); or iterative re construction. IV CONTRAST: Omnipaque 350; 100 mL IV. Oral contrast: No DLP: 572.50 mGy.cm COMPARISON: 12/08/2017 Lower thorax: Lung bases are clear. Heart is normal size. Moderate-sized hiatal hernia. Surgical clip s at the GE junction. History of a gastric sleeve. Liver/biliary system: Normal size with no intrahepatic dilatation. Gallbladder: Status post cholecystectomy. Pancreas: Normal size pancreas and pancreatic duct. No adjacent inflammation. Spleen: Normal size spleen. No mass or infarct. Adrenal glands: Normal. Right kidney: Normal. Left kidney: Normal. Aorta: Normal. Lymphadenopathy: None. Free fluid: None. GI tract: Stomach is not distended. There is very mild thickening of the gastric antrum. No ulceratio n is identified. The appendix is not definitely identified but there are no secondary findings of precious endicitis. No colon obstruction. Mild shagginess involving the descending and sigmoid colon. May be f rom changes of colitis. No small bowel obstruction. Several loops of overlapping small bowel in the L EFT upper abdomen. No obstruction. Abdominal wall: Unremarkable abdominal wall. No hernia. Pelvis: No free fluid or adenopathy within the pelvis. Bones: Unremarkable. CT/CT abdomen pelvis w con* [id number] IMPRESSION: 1. No hypervascular mass or mesenteric calcified mass. 2. Very mild soft tissue thickening involving the stomach antrum may be due to mild gastritis. 3. Mild shagginess and irregular appearance to the descending and sigmoid colo n may be from early changes of colitis. 4. No adenopathy or free air. 5. Prior cholecystectomy. 6.
[2022-08-30 14:55] VITALS: BP 145/85; PULSE 71; O2SAT 100
--- NOTE | 2022-08-30 14:57 | W.ED.NAVMDI ---
HPI - Nausea/Vomiting/Diarrhea General: Chief complaint: Nausea/Vomiting/Diarrhea Stated complaint: n/v/d Time Seen by Provider: 08/30/22 14:25 Source: patient and family Mode of arrival: ambulatory Limitations: no limitations History of Present Illness: 42-year-old female with a history of gastric sleeve, cholecystectomy, oophorectomy, hysterectomy who presents with chief complaint of 5 weeks of pretty sudden onset of lower abdominal cramping and pain followed by diarrhea, generalized systemic rash and vomiting. This may happen once or twice a day or may only happen every few days. She has never had anything like this in the past. When she was in high school she had a diagnosis of spastic colon. She has never had a colonoscopy. She reports bloating and gas. She has a history of being MARYJO positive. She denies any specific food groups that seem to exacerbate her or cause her symptoms. She does have a history of GERD but takes omeprazole and this is controlling it well. Patient reports her diarrhea is brownish and low-volume. She has not been on any antibiotics in the last year. No history of C. difficile. No history of travel. Nobody around her has the same symptoms. She does feel quite flushed during these episodes. The rash is erythematous and macular but is generalized. She has a history of hilar adenopathy, chronic fatigue, elevated ESR, Raynaud's syndrome. Associated nausea: Yes Associated symtoms: Reports bloating and nausea; Denies altered mental status, chest pain, dysuria or syncope Review of Systems General: Reports: 10 or more systems reviewed and unremarkable except in HPI and below Const: Denies: fever(s) or chills Card: Denies: chest pain or syncope Resp: Denies: dyspnea, productive cough or non-productive cough GI: Reports: abdominal pain, nausea, vomiting, diarrhea, bloating, GI cramping, belching, excessive flatus, change in bowel habits and change in stool character; Denies: hematemesis, coffee ground emesis, dysphagia, heartburn, early satiety, pain on defecation, rectal pain, rectal swelling, hematochezia, melena, mucus in stool or white/light colored stool : Denies: flank pain or dysuria Skin/Breast: Denies: sores Neuro: Denies: weakness in extremities PFSH ED PFSH: Medical History Chest pain Costochondritis Frequent falls Gastritis Hilar lymphadenopathy Psoriatic arthritis Shortness of breath Surgical History H/O laparoscopy History of esophagogastroduodenoscopy (EGD) (~10/2019) Hx of cholecystectomy Hx of hysterectomy Hx of laparoscopic partial gastrectomy Hx of oophorectomy Family History Denies family history of Anesthesia complication Bleeding disorder Social History Smoking and tobacco status: never smoked Quit status (tobacco): has quit using tobacco Year quit tobacco: 2014 - .025PPD x15yrs Second hand smoke exposure: No Smoking risk assessment/counseling performed?: No Alcohol intake: current Alcohol intake frequency: few times a month Lives independently: Yes Household members: spouse Marital status: Highest education level completed: High School Graduate service: No Current occupational status: employed Current occupation: [employer] Current occupational exposures/hazards: No Pets and animals: Yes History of recent travel: No Sexually active: Yes Current gender identity: Female Sarah/Episcopal: Congregational Physical Exam Const: COMMON NORMALS: no limitations, alert and well nourished EXAM LIMITATIONS: no altered mental status GENERAL APPEARANCE: cooperative, well kempt and well developed ORIENTATION/CONSCIOUSNESS: Yes awake; not confused HENMT: COMMON NORMALS: normocephalic, atraumatic, external ears normal and Normal external nose present HEAD & SCALP: normal to inspection, normocephalic and atraumatic FACE & SINUS: face symmetric NOSE: Normal external nose present EXTERNAL EAR: Yes external ears normal MOUTH: lip normal; no muffled voice Eye: COMMON NORMALS: EOMs intact bilaterally and conjunctivae normal GENERAL EYE: appearance normal, both eyes and all related structures CONJUNCTIVA: Yes conjunctivae normal Neck/C-Spine: COMMON NORMALS: no JVD GENERAL: Yes normal visual inspection and Yes trachea midline Resp: COMMON NORMALS: normal respiratory effort, No use of accessory muscles and clear to auscultation bilaterally EFFORT & INSPECTION: Yes able to speak in complete sentences and Yes symmetric chest movement AUSCULTATION: clear to auscultation bilaterally Cardio: COMMON NORMALS: no JVD, regular rate and regular rhythm RATE: regular rate RHYTHM: regular rhythm PERIPHERAL PULSES: radial pulses present GI: COMMON NORMALS: Soft to palpation PALPATION: Yes Soft to palpation, Yes Tenderness to palpation present (GI) Details: LUQ and other (Periumbilical), No Guarding due to palpation present (GI), No Hernia present, No Palpable mass present, No Pulsatile mass present, No Ascites present and No Rebound tenderness present : EXTERNAL FEMALE EXAM: No Hernia present Extremity: COMMON NORMALS: normal to inspection GENERAL: Yes normal exam except as noted Neuro: COMMON NORMALS: moves all extremities, no focal motor deficits and no sensory deficits noted SENSORIUM/ORIENTATION: Yes alert Psych: COMMON NORMALS: mental status grossly normal, Normal thought process present, cooperative, normal affect and speech normal APPEARANCE: Yes well kempt SPEECH: Yes normal speech THOUGHT PROCESS: Normal thought process present Skin: COMMON NORMALS: no rashes or lesions noted, turgor normal and no jaundice GENERAL SKIN EXAM: no rashes or lesions noted and turgor normal Course Vital Signs: Vital signs: Vital Signs Temperature 97.3 F L 08/30/22 12:22 Pulse Rate 65 08/30/22 15:24 Respiratory Rate 14 08/30/22 12:22 Blood Pressure 145/85 08/30/22 16:10 Pulse Oximetry 98 08/30/22 16:10 Oxygen Delivery Me thod 08/30/22 16:10 MDM - Nausea/Vomiting/Diarrhea Medical Decision Making Differential diagnosis includes infectious diarrhea, carcinoid syndrome neuroendocrine tumor, malabsorption, food allergy, autoimmune disease, colon cancer (patient's mother has a history), functional diarrhea, hypersecretory syndrome, dumping syndrome, multiple others. UPDATE: CT largely unremarkable. WBC and CRP normal Lytes okay No renal/liver dysfunction. Patient unable to give stool sample. Consulted with Dr Flores, who has agreed to see patient in f/u for upper and lower endoscopy. Pt/family informed of results and agree with plan. She is going to drop off stool study with pcp who also has orders in to eval stool. Lab Data 08/30/22 13:20 08/30/22 13:20 Radiology Impressions Abdomen/Pelvis CT 08/30/22 14:50 IMPRESSION: 1. No hypervascular mass or mesenteric calcified mass. 2. Very mild soft tissue thickening involving the stomach antrum may be due to mild gastritis. 3. Mild shagginess and irregular appearance to the descending and sigmoid colon may be from early changes of colitis. 4. No adenopathy or free air. 5. Prior cholecystectomy. 6. Laboratory Results WBC 8.9 10^3/uL (4.0-10.0) 08/30/22 13:20 RBC 3.97 10^6/uL (4.1-5.3) L 08/30/22 13:20 Hgb 12.4 g/dL (11.5-15.3) 08/30/22 13:20 Hct 37.8 % (37.0-47.0) 08/30/22 13:20 MCV 95.2 fl (81-99) 08/30/22 13:20 MCH 31.2 pg (28.0-34.0) 08/30/22 13:20 MCHC 32.8 g/dL (30.0-36.0) 08/30/22 13:20 RDW 13.3 % (12.1-15.1) 08/30/22 13:20 Plt Count 220 10^3/cmm (130-400) 08/30/22 13:20 MPV 10.3 fL (7.4-10.4) 08/30/22 13:20 Neut % (Auto) 81.4 % 08/30/22 13:20 Lymph % (Auto) 13.9 % 08/30/22 13:20 Price % (Auto) 3.8 % 08/30/22 13:20 Eos % (Auto) 0.4 % 08/30/22 13:20 Baso % (Auto) 0.2 % 08/30/22 13:20 Neut # (Auto) 7.26 10^3/uL (1.8-7.7) 08/30/22 13:20 Lymph # (Auto) 1.2 10^3/uL (0.8-4.8) 08/30/22 13:20 Price # (Auto) 0.3 10^3/uL (0.2-0.9) 08/30/22 13:20 Eos # (Auto) 0.0 10^3/uL (0.0-0.8) 08/30/22 13:20 Baso # (Auto) 0.0 10^3/uL (0.0-0.1) 08/30/22 13:20 Nucleated RBC % (auto) 0 % 08/30/22 13:20 Nucleated RBCs # 0.0 /100WBC 08/30/22 13:20 Sodium 142 mmol/L (136-145) 08/30/22 13:20 Potassium 3.4 mmol/L (3.5-5.1) L 08/30/22 13:20 Chloride 102 mmol/L (98-107) 08/30/22 13:20 Carbon Dioxide 27 mmol/L (22-29) 08/30/22 13:20 Anion Gap 16.4 (5-19) 08/30/22 13:20 BUN 8 mg/dL (6-20) 08/30/22 13:20 Creatinine 0.7 mg/dL (0.5-0.9) 08/30/22 13:20 GFR Calculation 91.3 mL/min (90-130) 08/30/22 13:20 Glucose 93 mg/dL (65-115) 08/30/22 13:20 Calculated Osmolality 292 mOsm/kg (285-295) 08/30/22 13:20 Calcium 9.7 mg/dL (8.5-10.5) 08/30/22 13:20 Magnesium 2.2 mg/dL (1.7-2.3) 08/30/22 13:20 Total Bilirubin 0.3 mg/dL (0.15-1.2) 08/30/22 13:20 AST 11 U/L (0-32) 08/30/22 13:20 ALT 14 U/L (0-33) 08/30/22 13:20 Alkaline Phosphatase 68 U/L (35-105) 08/30/22 13:20 C-Reactive Protein 3.0 mg/L (0.0-4.9) 08/30/22 13:20 Total Protein 7.8 g/dL (6.6-8.7) 08/30/22 13:20 Albumin 4.6 g/dL (3.5-5.2) 08/30/22 13:20 Globulin 3.2 g/dL (1.3-4.6) 08/30/22 13:20 Lipase 41 U/L (13-60) 08/30/22 13:20 TSH 2.02 uIU/mL (0.27-4.20) 08/30/22 13:20 Urine Color Yellow (Yellow) 08/30/22 12:33 Urine Appearance Clear (CLEAR) 08/30/22 12:33 Urine pH 5 (5-7) 08/30/22 12:33 Ur Specific Eads 1.015 (1.005-1.030) 08/30/22 12:33 Urine Protein Neg (Negative) 08/30/22 12:33 Urine Glucose (UA) Norm (Normal) 08/30/22 12:33 Urine Ketones 1+ (Negative) H 08/30/22 12:33 Urine Blood 2+ (Negative) H 08/30/22 12:33 Urine Nitrate Negative (Negative) 08/30/22 12:33 Urine Bilirubin Neg (Negative) 08/30/22 12:33 Urine Urobilinogen Norm mg/dL (Negative) 08/30/22 12:33 Ur Leukocyte Esterase Negative (Negative) 08/30/22 12:33 Urine RBC 0-4 /hpf (0-2) H 08/30/22 12:33 Urine WBC 0-4 /hpf (0-5) H 08/30/22 12:33 Ur Squamous Epith Cells 10-15 /hpf (0-5) H 08/30/22 12:33 Amorphous Sediment Not Reportable 08/30/22 12:33 Urine Bacteria 2+ /hpf (NONE) H 08/30/22 12:33 Urine Mucus 2+ /hpf 08/30/22 12:33 Discharge Plan Discharge Patient Disposition: Home Clinical Impression: Combined abdominal pain, vomiting, and diarrhea, Rash and nonspecific skin eruption, Family history of colon cancer in mother Condition: Stable Prescriptions: New ondansetron 4 mg tablet,disintegrating 4 mg PO Q8H PRN (Reason: nausea and vomiting) 5 Days Qty: 14 0RF Anti-Diarrheal (loperamide) 2 mg capsule 2 mg PO Q6H PRN (Reason: loose stool) Qty: 20 0RF No Action methotrexate sodium 2.5 mg tablet 15 mg PO Q7D Rx Instructions: on sundays folic acid 1 mg tablet 1 mg PO QAM celecoxib 200 mg capsule 200 mg PO BID tizanidine 4 mg tablet 8 mg PO BEDTIME fluoxetine 40 mg capsule 40 mg PO BID pantoprazole 40 mg tablet,delayed release (DR/EC) 40 mg PO QAM Discharge Orders: Discharge ED (Routine); Ordered 08/30/22 Ordered By: Faheem Vega Referrals: Zhen Flores DO [Physician] - 1 week (Needs EGD and LGI. ? carcinoid. Mother with hx of colon cancer.) Aria Schwarz FNP [Primary Care Provider] - Discharge Diet: Advance as tolerated Discharge Activity: Resume usual activity Patient Instructions: Abdominal Pain (ED), Pain Management Activity Restrictions/Additional Instructions: Please make sure to drop the stool sample off for cultures with your doctor. Make an appointment for upper and lower endoscopy with Dr Flores. Return to ER if worsening or emergent concerns. Coding Level of Care Code ED Manufacturing Engineering Intern for Chg Fwd Exam Comprehensive
[2022-08-30 15:24] VITALS: PULSE 65; O2SAT 100
[2022-08-30 15:24] LABS: Magnesium 2.2 mg/dL (1.7-2.3); Thyroid Stimulating Hormone 2.02 uIU/mL (0.27-4.20)
[2022-08-30 16:10] VITALS: BP 145/85; O2SAT 98
[2022-08-30 16:28] VITALS: BP 144/96; PULSE 62; O2SAT 99
== END 2022-08-30 16:25 | disposition home or self-care (01) ==
PROVIDERS: Family Medicine; Emergency Provider Emergency Medicine; PCP Nurse Practitioner Family
DX: R10.30 Lower abdominal pain, unspecified (principal); R11.11 Vomiting without nausea; R19.7 Diarrhea, unspecified; R21 Rash and other nonspecific skin eruption; Z80.0 Family history of malignant neoplasm of digestive organs; Z87.891 Personal history of nicotine dependence
CPT/HCPCS: 36415; 74177; 80053; 81001; 83690; 83735; 84443; 85025; 86140; 99284; Q9967

== ENCOUNTER 2022-08-31 08:09 | Outpatient (CLI) | payer BC, SELFPAY ==
[2022-08-31 08:48] LABS: Basophils % 0.3 %; Eosinophils # 0.1 10^3/uL (0.0-0.8); Eosinophils % 0.9 %; Hemoglobin 13.9 g/dL (11.5-15.3); Lymphocytes # 1.5 10^3/uL (0.8-4.8); Lymphocytes % 21.9 %; Mean Corpuscular HGB Conc 32.3 g/dL (30.0-36.0); Mean Corpuscular Hemoglobin 30.5 pg (28.0-34.0); Mean Corpuscular Volume 94.3 fl (81-99); Mean Platelet Volume 9.9 fL (7.4-10.4); Monocytes # 0.3 10^3/uL (0.2-0.9); Monocytes % 5.1 %; Neutrophils # 4.79 10^3/uL (1.8-7.7); Neutrophils % 71.5 %; Nucleated Red Blood Cells % 0 %; Platelet Count 231 10^3/cmm (130-400); Red Blood Count 4.56 10^6/uL (4.1-5.3); Red Cell Distribution Width 13.2 % (12.1-15.1); White Blood Count 6.7 10^3/uL (4.0-10.0)
[2022-08-31 09:25] LABS: Calcium 9.8 mg/dL (8.5-10.5)
[2022-08-31 09:28] LABS: Alanine Aminotransferase 15 U/L (0-33); Albumin Level 4.4 g/dL (3.5-5.2); Alkaline Phosphatase 71 U/L (35-105); Anion Gap 14.3 (5-19); Aspartate Amino Transferase 12 U/L (0-32); Blood Urea Nitrogen 8 mg/dL (6-20); Calcium 9.8 mg/dL (8.5-10.5); Carbon Dioxide 28 mmol/L (22-29); Chloride 102 mmol/L (98-107); Chol HDL Ratio 2.89 mg/dL (0.0-4.40); Cholesterol 165 mg/dL (0-200); Ferritin 43 ng/mL (15-150); Globulin 3.6 g/dL (1.3-4.6); Glomerular Filtration Rate 68.3 mL/min (90-130); Glucose 93 mg/dL (65-115); HDL Cholesterol 57 mg/dL (60-100); Iron 66 ug/dL (37-145); LDL Cholesterol Calculated 89 mg/dL (50-129); LDL HDL Ratio 1.56 RATIO (0.00-3.22); Magnesium 2.1 mg/dL (1.7-2.3); Osmolality Calculated 290 mOsm/kg (285-295); Percent Saturation 19.2 % (20-50); Potassium 3.3 mmol/L (3.5-5.1); Sodium 141 mmol/L (136-145); Thyroid Stimulating Hormone 2.02 uIU/mL (0.27-4.20); Total Bilirubin 0.4 mg/dL (0.15-1.2); Total Iron Binding Capacity 343 mcg/dl; Triglycerides 93 mg/dL (0-150); Unsaturated Iron Binding 277 ug/dL (112-347); Vitamin B12 350 pg/mL (232-1245)
[2022-08-31 09:40] LABS: Folate Level 19.6 ng/mL (4.8-37.3)
[2022-09-04 09:52] LABS: Vitamin B1(Thiamin) Plas/Ser 14 nmol/L (8-30)
[2022-09-05 12:22] LABS: Vit D 1,25 (Oh)2, Total 57 pg/mL (18-72); Vit D2 1,25 (Oh)2 <8 pg/mL; Vit D3 1,25 (Oh)2 57 pg/mL
[2022-09-06 12:53] LABS: Zinc Level, Serum or Plasma 71 mcg/dL (60-130)
== END 2022-08-31 08:10 | disposition home or self-care (01) ==
LOC: LAB 08:10
PROVIDERS: PCP Nurse Practitioner Family; Visit Provider Surgery
DX: Z98.84 Bariatric surgery status (principal); K52.9 Noninfective gastroenteritis and colitis, unspecified
CPT/HCPCS: 36415; 80053; 80061; 82310; 82607; 82652; 82728; 82746; 83540; 83550; 83630; 83735; 83970; 84425; 84443; 84630; 85025; 87177; 87209; 87493; 87506

== ENCOUNTER → 2022-09-01 15:41 | Outpatient (BNVA) | payer BC, SELFPAY | PROVIDERS: PCP Nurse Practitioner Family; Visit Provider Nurse Practitioner Family | DX: N39.0 Urinary tract infection, site not specified (principal); K52.9 Noninfective gastroenteritis and colitis, unspecified | CPT/HCPCS: 81000 ==

== ENCOUNTER 2022-11-04 06:21 | Day surgery (SDC) | payer BC, SELFPAY ==
[2022-11-02 10:20] VITALS: BMI 29.0
[2022-11-04 06:39] VITALS: BP 121/86; PULSE 94; RESP 18; TEMP 36.4; O2SAT 98
[2022-11-04] MEDS: sodium chloride 0.9% 1,000 ML 30 ML IV (06:57)
--- NOTE | 2022-11-04 07:54 | ANES.PREANE2 ---
Pre-Anesthetic Assessment Height/Weight: Height 1.57 m Weight 72.121 kg Temp Pulse Resp BP Pulse Ox O2 Del Method 97.6 F 94 18 121/86 98 11/04/22 06:39 11/04/22 06:39 11/04/22 06:39 11/04/22 06:39 11/04/22 06:39 11/04/22 06:39 Preop Diagnosis: Bloating and change in bowel habits Operation Date: 11/04/22 08:00 Proposed Procedures p 79594 EGD [id number] Colonoscopy K52.9,K21.9(Not Applicable) - Zhen Flores DO s Colonoscopy(Not Applicable) - Zhen Flores DO Familial anesthetic complications: mom slow to wake Was Beta Mallorie taken within 24 hours: N/A Was Clonidine taken within 24 hours: N/A Last intake: Intake Last Liquid Date 11/03/22 Last Liquid Time 22:00 Last Solid Date 11/02/22 Last Solid Time 18:00 Last Intake: 22:00 Social No alcohol and No tobacco (stop 5 years ago) Exam alert, oriented x 3, clear to auscultation bilaterally and regular rate & rhythm Airway Submandibular: within normal limits Cervical ROM: within normal limits Mallampati: Class I Dentition: full Pulmonary None reported CV/HEM Stable Angina (none cardiac) None reported Hepatic None reported GI Gastroesophageal Reflux Disease Metabolic None reported Musc/skel Lower Back Pain and Osteoarthritis/DJD Neuropsych Anxiety Anesthetic Plan ASA status: 2 Medications/Allergies Home Medications Medication Instructions Recorded Confirmed Last Taken Type folic acid 1 mg tablet 1 mg PO QAM 11/16/21 11/04/22 11/03/22 History methotrexate sodium 2.5 mg tablet 15 mg PO Q7D 11/16/21 11/04/22 10/30/22 History celecoxib 200 mg capsule 200 mg PO BID 08/30/22 11/04/22 11/03/22 History tizanidine 4 mg tablet 8 mg PO BEDTIME 08/30/22 11/04/22 11/03/22 History fluoxetine 40 mg capsule See Rx Instructions .Route 10/05/22 11/04/22 11/03/22 Rx .COMPLEX #180 caps pantoprazole 40 mg tablet,delayed 40 mg PO BID 6 weeks #84 tabs 10/12/22 11/04/22 11/03/22 Rx release (Protonix) Allergies Allergy/AdvReac Type Severity Reaction Status Date / Time morphine Allergy Unknown Verified 11/04/22 06:39 Current Medications Generic Name Dose Route Start Last Admin Trade Name Celeste PRN Reason Stop Dose Admin Sodium Chloride 1,000 mls @ 30 mls/hr 11/04/22 06:30 11/04/22 06:57 Sodium Chloride 0.9% IV 11/05/22 06:29 30 mls/hr .Q24H MARTHA Administration PFSH Anesthesia Medical History Chest pain Costochondritis Frequent falls Gastritis Hilar lymphadenopathy Psoriatic arthritis Shortness of breath Surgical History H/O laparoscopy History of esophagogastroduodenoscopy (EGD) (~10/2019) Hx of cholecystectomy Hx of hysterectomy Hx of laparoscopic partial gastrectomy Hx of oophorectomy Family History Denies family history of Anesthesia complication Bleeding disorder Social History Smoking and tobacco status: never smoked Quit status (tobacco): has quit using tobacco Year quit tobacco: 2015 - .025PPD x15yrs Second hand smoke exposure: No Smoking risk assessment/counseling performed?: No Alcohol intake: current Alcohol intake frequency: few times a month Lives independently: Yes Household members: spouse Marital status: Highest education level completed: High School Graduate service: No Current occupational status: employed Current occupation: [employer] Current occupational exposures/hazards: No Pets and animals: Yes History of recent travel: No Sexually active: Yes Current gender identity: Female Sarah/Confucianism: Zoroastrian Data Anesthesia Cardiac Studies: Echocardiogram Ultrasound 08/20/20
--- NOTE | 2022-11-04 07:56 | W.PM.OPSUD ---
Surgery/Procedure H&P Update DATE OF PROCEDURE: November 04, 2022 DATE H&P PERFORMED: 10/12/22 PREOP DIAGNOSIS: Bloating and change in bowel habits PLANNED PROCEDURE: Operation Date: 11/04/22 08:00 Proposed Procedures p [id number] EGD [id number] Colonoscopy K52.9,K21.9(Not Applicable) - Zhen Flores DO s Colonoscopy(Not Applicable) - Zhen Flores DO
[2022-11-04 08:34] VITALS: BP 114/72; PULSE 96; RESP 16; TEMP 24.4; O2SAT 96
[2022-11-04 08:45] VITALS: BP 140/95; PULSE 76; RESP 16; O2SAT 99
[2022-11-04 08:55] VITALS: BP 129/86; PULSE 80; RESP 16; O2SAT 98
--- NOTE | 2022-11-04 14:18 | ANE.PACU2 ---
Inpatient post-anesthesia follow up: Airway intact: Yes Vital signs: Temperature 76 F Pulse Rate 80 Respiratory Rate 16 Blood Pressure 129/86 Pulse Oximetry 98 Oxygen Delivery Me thod Room Air Oxygen Flow Rate 3 Fraction of Inspir ed Oxygen Hydration adequate: Yes Nausea and vomiting: Yes Pain level: 1 Mental status: Baseline
== END 2022-11-04 09:22 | disposition home or self-care (01) ==
PROVIDERS: PCP Nurse Practitioner Family; Visit Provider Surgery
PROC: 0DJD8ZZ Inspection of Lower Intestinal Tract, Via Natural or Artificial Opening Endoscopic (ICD-10-PCS; CPT 45378; 2022-11-04 08:00)
PROC: 0DJ08ZZ Inspection of Upper Intestinal Tract, Via Natural or Artificial Opening Endoscopic (ICD-10-PCS; CPT 43235; 2022-11-04 08:00)
DX: R14.0 Abdominal distension (gaseous) (principal); R19.4 Change in bowel habit; K21.9 Gastro-esophageal reflux disease without esophagitis; D12.5 Benign neoplasm of sigmoid colon; K29.50 Unspecified chronic gastritis without bleeding; B96.81 Helicobacter pylori [H. pylori] as the cause of diseases classified elsewhere
CPT/HCPCS: 43239; 45385; 82274; 83630; 87493; 87506; 88305; J2704; J7030

== ENCOUNTER 2022-11-26 12:23 | Outpatient (CLI) | payer BC, SELFPAY ==
[2022-11-26 13:01] LABS: Erythrocyte Sedimentation Rate 1 mm/hr (0-15)
[2022-11-26 13:03] LABS: Basophils % 0.4 %; Eosinophils # 0.1 10^3/uL (0.0-0.8); Eosinophils % 1.5 %; Hematocrit 38.3 % (37.0-47.0); Hemoglobin 12.2 g/dL (11.5-15.3); Lymphocytes % 27.9 %; Mean Corpuscular HGB Conc 31.9 g/dL (30.0-36.0); Mean Corpuscular Volume 94.3 fl (81-99); Mean Platelet Volume 9.8 fL (7.4-10.4); Monocytes # 0.4 10^3/uL (0.2-0.9); Monocytes % 4.8 %; Neutrophils # 4.71 10^3/uL (1.8-7.7); Neutrophils % 65.3 %; Nucleated Red Blood Cells % 0 %; Platelet Count 247 10^3/cmm (130-400); Red Blood Count 4.06 10^6/uL (4.1-5.3); Red Cell Distribution Width 13.8 % (12.1-15.1); White Blood Count 7.2 10^3/uL (4.0-10.0)
[2022-11-26 13:18] LABS: Alanine Aminotransferase 16 U/L (0-33); Albumin Level 4.5 g/dL (3.5-5.2); Alkaline Phosphatase 61 U/L (35-105); Aspartate Amino Transferase 18 U/L (0-32); Blood Urea Nitrogen 9 mg/dL (6-20); Calcium 9.1 mg/dL (8.5-10.5); Carbon Dioxide 29 mmol/L (22-29); Chloride 99 mmol/L (98-107); Globulin 2.3 g/dL (1.3-4.6); Glomerular Filtration Rate 68.3 mL/min (90-130); Glucose 110 mg/dL (65-115); Osmolality Calculated 283 mOsm/kg (285-295); Sodium 137 mmol/L (136-145); Total Bilirubin 0.3 mg/dL (0.15-1.2); Total Protein 6.8 g/dL (6.6-8.7)
[2022-11-26 13:27] LABS: Anion Gap 12.8 (5-19); Potassium 3.8 mmol/L (3.5-5.1)
== END 2022-11-26 12:24 | disposition home or self-care (01) ==
PROVIDERS: PCP Nurse Practitioner Family; Visit Provider Internal Medicine
DX: M06.4 Inflammatory polyarthropathy (principal); M79.7 Fibromyalgia; Z79.899 Other long term (current) drug therapy
CPT/HCPCS: 36415; 80053; 85025; 85651; 86140

== ENCOUNTER → 2023-02-01 15:46 | Outpatient (BNVA) | payer BC, SELFPAY | PROVIDERS: PCP Nurse Practitioner Family; Visit Provider Nurse Practitioner Family | DX: R10.2 Pelvic and perineal pain (principal); N89.8 Other specified noninflammatory disorders of vagina | CPT/HCPCS: 81000; 87252 ==

== ENCOUNTER → 2023-02-14 11:23 | Outpatient (BNVA) | payer BC, SELFPAY | PROVIDERS: PCP Nurse Practitioner Family; Visit Provider Nurse Practitioner Family | DX: N89.8 Other specified noninflammatory disorders of vagina (principal) | CPT/HCPCS: 87070; 87106; 87205; 87252 ==

== ENCOUNTER → 2023-03-23 09:30 | Outpatient (BNVA) | payer BC, SELFPAY | PROVIDERS: PCP Nurse Practitioner Family; Visit Provider Surgery | DX: K29.70 Gastritis, unspecified, without bleeding (principal); K52.9 Noninfective gastroenteritis and colitis, unspecified; B96.81 Helicobacter pylori [H. pylori] as the cause of diseases classified elsewhere | CPT/HCPCS: 83630; 87493; 87506 ==

== ENCOUNTER 2023-08-02 16:47 | Outpatient (CLI) | payer BC, SELFPAY ==
--- NOTE | 2023-08-02 16:53 | XR_ITS ---
WS: [id number] Exam: XR cervical spine 3V* [id number] Date/Time of Exam: 08/02/2023 4:53 PM Reason For Exam: M54.2 - Cervicalgia No fracture or dislocation. There is straightening. Disc bases are preserved. Posterior elements are intact. Normal paraspinal soft tissue structures. The odontoid appears normal. IMPRESSION: 1. Straightening of the C-spine. No fracture or malalignment.
== END 2023-08-02 16:48 | disposition home or self-care (01) ==
LOC: RAD 16:49
PROVIDERS: PCP Nurse Practitioner Family; Visit Provider Nurse Practitioner Family
DX: M54.2 Cervicalgia (principal)
CPT/HCPCS: 72040

== ENCOUNTER 2023-08-16 10:06 | Emergency (ER) | payer BC, SELFPAY ==
[2023-08-16 10:20] VITALS: BP 136/84; PULSE 80; RESP 16; TEMP 36.9; O2SAT 98; BMI 28.1
[2023-08-16 11:16] LABS: Basophils # 0.1 10^3/uL (0.0-0.1); Basophils % 0.8 %; Eosinophils # 0.2 10^3/uL (0.0-0.8); Eosinophils % 3.2 %; Hematocrit 42.1 % (36-47); Lymphocytes # 2.2 10^3/uL (0.8-4.8); Lymphocytes % 35.7 %; Mean Corpuscular Hemoglobin 30.5 pg (27-33); Mean Corpuscular Volume 92.5 fl (85-98); Mean Platelet Volume 9.7 fL (7.4-10.4); Monocytes # 0.4 10^3/uL (0.2-0.9); Monocytes % 5.9 %; Neutrophils # 3.38 10^3/uL (1.8-7.7); Neutrophils % 54.2 %; Nucleated Red Blood Cells % 0 %; Platelet Count 216 10^3/cmm (157-399); Red Blood Count 4.55 10^6/uL (3.85-5.65); Red Cell Distribution Width 12.4 % (12.1-15.1); White Blood Count 6.24 10^3/uL (3.29-11.43)
[2023-08-16 11:37] LABS: Alanine Aminotransferase 13 U/L (0-33); Albumin Level 4.9 g/dL (3.5-5.2); Alkaline Phosphatase 56 U/L (35-105); Anion Gap 13.8 (5-19); Aspartate Amino Transferase 12 U/L (0-32); Blood Urea Nitrogen 8 mg/dL (6-20); Calcium 9.7 mg/dL (8.5-10.5); Carbon Dioxide 30 mmol/L (22-29); Chloride 102 mmol/L (98-107); Globulin 2.8 g/dL (1.3-4.6); Glomerular Filtration Rate 77.9 mL/min (90-130); Glucose 92 mg/dL (65-115); Lipase 38 U/L (13-60); Osmolality Calculated 292 mOsm/kg (285-295); Potassium 3.8 mmol/L (3.5-5.1); Sodium 142 mmol/L (136-145); Total Bilirubin 0.3 mg/dL (0.15-1.2); Total Protein 7.7 g/dL (6.6-8.7)
[2023-08-16 11:42] LABS: HCG, Serum Qual Negative (Negative)
--- NOTE | 2023-08-16 11:56 | W.ED.GIBLEED ---
HPI - GI Bleed General: Chief complaint: GI Bleed Stated complaint: bloody stool Time Seen by Provider: 08/16/23 11:14 Source: patient Mode of arrival: ambulatory Limitations: no limitations History of Present Illness: Patient is a nice 43-year-old female who presents to ED today with a complaint of a single black/tarry/mucous stool this morning. Patient states she has been having GI issues for over a year or so. States she will have intermittent abdominal pain/cramps, mucous like stools, and diarrhea. She has had EGD/colonoscopy and has seen Dr. Flores for evaluation. She states she most recently followed one of [facility]'s previous general surgeons to [place] after he moved (Dr. Tellez) to discuss her issues. She states she had some type of imaging performed that possibly was suspicious for ulcerative colitis. She states she has an appointment with the GI specialist in [place] next week. She states this morning she has had increased left sided abdominal pain, had tenesmus, and noticed a single episode of black/tarry stool. No alcohol use. She does take Celebrex daily for her RA. Denies epigastric pain. No anticoagulation. MD complaint: other (one episode dark/tarry stool) Onset (ago): hour(s) Pain Consistency: intermittent Relieving factors: none Associated symptoms: Reports abdominal pain; Denies chills, fever(s), malaise, nausea, rash or vomiting Treatments Prior to Arrival: none Review of Systems Const: Denies: fever(s), chills, body aches, fatigue or malaise Card: Denies: chest pain Resp: Denies: dyspnea GI: Reports: abdominal pain, GI cramping, melena and mucus in stool; Denies: nausea, vomiting or hematemesis : Denies: flank pain, difficulty voiding, dysuria, hematuria or pelvic pain Musc: Denies: back pain Skin/Breast: Denies: rash Neuro: Denies: dizziness PFSH ED PFSH: Medical History MARYJO positive Bloating Chest pain Costochondritis Decreased GFR Frequent falls Gastritis Hilar lymphadenopathy Psoriatic arthritis Shortness of breath Tubular adenoma of colon Surgical History H/O laparoscopy History of esophagogastroduodenoscopy (EGD) (~10/2019) Hx of cholecystectomy Hx of colonoscopy 11/04/22 Hx of hysterectomy Hx of laparoscopic partial gastrectomy Hx of oophorectomy Status post laparoscopic sleeve gastrectomy Family History Denies family history of Anesthesia complication Bleeding disorder Social History Smoking and tobacco/nicotine status: never used tobacco/nicotine Quit status (tobacco/nicotine): has quit using Year quit tobacco: 2015 - .025PPD x15yrs Second hand smoke exposure: No Alcohol intake: current Alcohol intake frequency: few times a month Substance/Drug Use: never Lives independently: Yes Household members: spouse Marital status: Highest education level completed: High School Graduate service: No Current occupational status: employed Current occupation: [employer] Current occupational exposures/hazards: No Pets and animals: Yes Sexually active: Yes Do you think of yourself as: Straight/Heterosexual Current gender identity: Female Sarah/Pentecostalism: Rastafarian Physical Exam Const: COMMON NORMALS: no acute distress, average body habitus, patient oriented x3, no limitations, healthy appearing, alert and well nourished GENERAL APPEARANCE: cooperative ORIENTATION/CONSCIOUSNESS: Yes awake, Yes oriented to person, Yes oriented to place and Yes oriented to time HENMT: COMMON NORMALS: normocephalic and atraumatic HEAD & SCALP: normal to inspection, normocephalic and atraumatic Eye: COMMON NORMALS: no scleral icterus Neck/C-Spine: COMMON NORMALS: no lymphadenopathy Chest: COMMONS NORMALS: normal inspection of the chest and normal palpation of entire chest wall Resp: COMMON NORMALS: normal respiratory effort and clear to auscultation bilaterally AUSCULTATION: clear to auscultation bilaterally Cardio: COMMON NORMALS: regular rate and regular rhythm RATE: regular rate RHYTHM: regular rhythm GI: COMMON NORMALS: Normal to inspection, nondistended, normoactive bowel sounds present, Soft to palpation, No hepatosplenomegaly present and no masses INSPECTION: Yes normal to inspection AUSCULTATION: Yes normoactive bowel sounds PALPATION: Yes Soft to palpation, Yes Tenderness to palpation present (GI) (throughout left side of abdomen ), Yes Guarding due to palpation present (GI), No Rigid due to palpation and Yes No hepatosplenomegaly present RECTAL EXAM: visual inspection normal, normal sphincter tone and heme negative stool (very little stool noted) : COMMON NORMALS: Yes no CVA tenderness BLADDER/KIDNEY EXAM: Yes no CVA tenderness Back/Pelvis: COMMON NORMALS: no CVA tenderness, thoracic and lumbar spine normal to inspection, no thoracic nor lumbar tenderness and thoraco-lumbar ROM normal Extremity: COMMON NORMALS: normal to inspection GENERAL: Yes normal exam except as noted Neuro: ANH COMA SCALE: document GCS findings [place] coma scale eye opening: Spontaneous Anh coma scale verbal response: Orientated [place] coma scale motor response: Obey commands Anh coma scale total score: 15 COMMON NORMALS: patient oriented x3, moves all extremities, no focal motor deficits, no sensory deficits noted and gait normal SENSORIUM/ORIENTATION: Yes alert, Yes oriented to person, Yes oriented to place and Yes oriented to time Skin: COMMON NORMALS: no rashes or lesions noted GENERAL SKIN EXAM: no rashes or lesions noted Course Vital Signs: Vital signs: Vital Signs Temperature 98.4 F 08/16/23 10:20 Pulse Rate 67 08/16/23 12:25 Respiratory Rate 18 08/16/23 12:25 Blood Pressure 136/84 08/16/23 10:20 Pulse Oximetry 100 08/16/23 12:25 Oxygen Delivery Me thod Room Air 08/16/23 12:25 MDM - GI Bleed Medical Decision Making Patient clinically appears in no acute distress. Her vital signs are normal. Blood work is unremarkable. Hemoccult was negative although limited sample was noted. CT scan essentially normal with questionable minimal terminal ileum thickening correlate for inflammatory bowel disease. This sounds similar to what she has been told previously. Discussed possibly placing on steroids but she would like to hold off until she sees GI next week. I think this is reasonable. We will have her hold off on Celebrex until she speaks with her GI specialist. Return ED precautions given. Lab Data 08/16/23 11:06 08/16/23 11:06 Laboratory Results WBC 6.24 10^3/uL (3.29-11.43) 08/16/23 11:06 RBC 4.55 10^6/uL (3.85-5.65) 08/16/23 11:06 Hgb 13.90 g/dL (11.27-16.99) 08/16/23 11:06 Hct 42.1 % (36-47) 08/16/23 11:06 MCV 92.5 fl (85-98) 08/16/23 11:06 MCH 30.5 pg (27-33) 08/16/23 11:06 MCHC 33.0 g/dL (30-55) 08/16/23 11:06 RDW 12.4 % (12.1-15.1) 08/16/23 11:06 Plt Count 216 10^3/cmm (157-399) 08/16/23 11:06 MPV 9.7 fL (7.4-10.4) 08/16/23 11:06 Neut % (Auto) 54.2 % 08/16/23 11:06 Lymph % (Auto) 35.7 % 08/16/23 11:06 [place] % (Auto) 5.9 % 08/16/23 11:06 Eos % (Auto) 3.2 % 08/16/23 11:06 Baso % (Auto) 0.8 % 08/16/23 11:06 Neut # (Auto) 3.38 10^3/uL (1.8-7.7) 08/16/23 11:06 Lymph # (Auto) 2.2 10^3/uL (0.8-4.8) 08/16/23 11:06 [place] # (Auto) 0.4 10^3/uL (0.2-0.9) 08/16/23 11:06 Eos # (Auto) 0.2 10^3/uL (0.0-0.8) 08/16/23 11:06 Baso # (Auto) 0.1 10^3/uL (0.0-0.1) 08/16/23 11:06 Nucleated RBC % (auto) 0 % 08/16/23 11:06 Nucleated RBCs # 0.0 /100WBC 08/16/23 11:06 Sodium 142 mmol/L (136-145) 08/16/23 11:06 Potassium 3.8 mmol/L (3.5-5.1) 08/16/23 11:06 Chloride 102 mmol/L (98-107) 08/16/23 11:06 Carbon Dioxide 30 mmol/L (22-29) H 08/16/23 11:06 Anion Gap 13.8 (5-19) 08/16/23 11:06 BUN 8 mg/dL (6-20) 08/16/23 11:06 Creatinine 0.8 mg/dL (0.5-0.9) 08/16/23 11:06 GFR Calculation 77.9 mL/min (90-130) L 08/16/23 11:06 Glucose 92 mg/dL (65-115) 08/16/23 11:06 Calculated Osmolality 292 mOsm/kg (285-295) 08/16/23 11:06 Calcium 9.7 mg/dL (8.5-10.5) 08/16/23 11:06 Total Bilirubin 0.3 mg/dL (0.15-1.2) 08/16/23 11:06 AST 12 U/L (0-32) 08/16/23 11:06 ALT 13 U/L (0-33) 08/16/23 11:06 Alkaline Phosphatase 56 U/L (35-105) 08/16/23 11:06 Total Protein 7.7 g/dL (6.6-8.7) 08/16/23 11:06 Albumin 4.9 g/dL (3.5-5.2) 08/16/23 11:06 Globulin 2.8 g/dL (1.3-4.6) 08/16/23 11:06 Lipase 38 U/L (13-60) 08/16/23 11:06 HCG, Qual Negative (Negative) 08/16/23 11:06 All radiology interpretation(s) finalized by discharge Discharge Plan Discharge Patient Disposition: Home Clinical Impression: Inflammatory bowel disease Condition: Stable Prescriptions: Held celecoxib 200 mg capsule 200 mg PO BID Hold Instructions: Resume on 08/23/23. until you speak with GI specialist No Action tizanidine 4 mg tablet 8 mg PO BEDTIME PRN (Reason: Sleep) Humira(CF) Pen 40 mg/0.4 mL pen injector kit 40 mg SUBCUT Q14D fluoxetine 40 mg capsule 40 mg PO BID Rx Instructions: IN THE MORNING AND AT NOON/MIDDAY Discharge Orders: Discharge ED (Routine); Ordered 08/16/23 Ordered By: Afua Martin Referrals: Aria Schwarz FNP [Primary Care Provider] - Activity Restrictions/Additional Instructions: As we discussed please follow-up with your GI specialist next week as scheduled. I think it is reasonable to discontinue your Celebrex until this appointment and you speak with them further. You may return to the ED for worsening abdominal pain, continued black/tarry stools, fevers, or any other concerns you may have. Coding Level of Care Code ED Development Trainer for Ricky Hernandez
--- NOTE | 2023-08-16 11:57 | CT_ITS ---
WS: [id number] CT ABDOMEN AND PELVIS WITH CONTRAST HISTORY: L sided abdominal pain, mucous/black stool TECHNIQUE: Imaging performed of the abdomen and pelvis with IV contrast. Single phase imaging of the abdomen. Coronal and sagittal reformats are submitted. All CT scans at [facility] use at [address] one of these dose optimization techniques: automated exposure control; mA and/or kV adjustment per patient size (includes targeted exams where dose is matched to clinical indication); or iterative re construction. IV CONTRAST: Omnipaque 350; 100 mL IV. Oral contrast: No DLP: 482.93 mGy.cm COMPARISON: 08/30/2022 Lower thorax: Lung bases are clear. Heart is normal size. Small hiatal hernia. Liver/biliary system: Normal size with no intrahepatic dilatation. Gallbladder: Prior cholecystectomy. Pancreas: Normal size pancreas and pancreatic duct. No adjacent inflammation. Spleen: Normal size spleen. No mass or infarct. Adrenal glands: Normal. Right kidney: Normal. Left kidney: Normal. Aorta: Normal. Lymphadenopathy: None. Free fluid: None. GI tract: Prior lap band. No small bowel obstruction. The appendix is not identified. Questionable mi nimal terminal ileum thickening. There is no obstruction. No diverticular disease. Abdominal wall: Unremarkable abdominal wall. No hernia. Pelvis: Prior hysterectomy. No free fluid. Negative urinary bladder. Bones: Unremarkable. IMPRESSION: 1. No GI tract obstruction. 2. Mild wall thickening of the terminal ileum without adjacent inflammation. Correlate for inflammat ory bowel disease. 3. Prior hysterectomy and cholecystectomy. 4. No evidence for diverticulitis.
[2023-08-16 12:25] VITALS: PULSE 67; RESP 18; O2SAT 100
[2023-08-16] MEDS: iohexol 350 mg/mL 500 mL Btl (per mL) IV (12:33)
--- NOTE | 2023-08-16 13:19 | PC.PHAR ---
pt states she takes care of her own medications-pt states had a build up of prozac 40mg bid and celebrex 200mg bid and states still takes-pt states takes tizanidine 4mg takes 8mg hs prn sleep notes are made in the pharmacy comments
== END 2023-08-16 13:48 | disposition home or self-care (01) ==
PROVIDERS: Emergency Medicine; Emergency Provider Physician Assistant; PCP Nurse Practitioner Family
DX: K63.89 Other specified diseases of intestine (principal); Z87.891 Personal history of nicotine dependence
CPT/HCPCS: 36415; 74177; 80053; 83690; 84703; 85025; 99285; Q9967

== ENCOUNTER 2023-09-14 16:20 | Outpatient (CLI) | payer BC, SELFPAY ==
--- NOTE | 2023-09-14 16:32 | XR_ITS ---
WS: [id number] PA and lateral chest, 09/14/2023 Clinical Data: J06.9 - Acute upper respiratory infection, unspecified Comparison: Portable chest, 10/30/2021 Findings: No nodules, masses or effusions are seen. The pulmonary vascularity is not increased. No pn eumonia or pneumothorax is present. The heart is normal. There are clips in the right upper quadrant from a cholecystectomy. Impression: Negative chest.
== END 2023-09-14 16:21 | disposition home or self-care (01) ==
PROVIDERS: PCP Nurse Practitioner Family; Visit Provider Nurse Practitioner Family
DX: J06.9 Acute upper respiratory infection, unspecified (principal)
CPT/HCPCS: 71046; 87400; 87426

== ENCOUNTER 2023-11-07 06:21 | Emergency (ER) | payer BC, SELFPAY ==
[2023-11-07 06:27] VITALS: BP 154/96; PULSE 81; RESP 18; TEMP 36.7; O2SAT 98; BMI 28.1
--- NOTE | 2023-11-07 06:34 | CTR_ITS ---
PROCEDURE INFORMATION: Exam: CT Cervical Spine Without Contrast Exam date and time: 11/07/2023 6:44 AM Age: 43 years old Clinical indication: Injury or trauma; Fall; Other: Hit head, neck pain; Additional info: Trauma/fall TECHNIQUE: Imaging protocol: Computed tomography of the cervical spine without contrast. Radiation optimization: All CT scans at this facility use at least one of these dose optimization techniques: automated exposure control; mA and/or kV adjustment per patient size (includes targeted exams where dose is matched to clinical indication); or iterative reconstruction. COMPARISON: MR cervical spin wo con* [id number] 10/19/2019 8:19 AM RADIATION DOSE METRICS: Total DLP (mGy-cm): 359.5 FINDINGS: Bones/joints: No acute fracture. Normal alignment. There is straightening of cervical lordosis. There is mild multilevel spondylosis. The spinal canal appears patent. Lungs: Lung apices are normal. Soft tissues: Unremarkable. CT/CT cervical spin wo con* [id number] IMPRESSION: No acute findings.
--- NOTE | 2023-11-07 06:34 | ED_ITS ---
HPI - Fall 2 General: Chief Complaint: Dizziness Stated Complaint: headache,dizzy,fell Time Seen by Provider: 11/07/23 06:29 History of Present Illness: 43-year-old female presents emerged part with complaints of a right-sided headache as well as intermittent dizziness when she stands. She states that she has had a headache for the previous 4 days last night she thought she would get in the shower to try to make it feel better as she took a hot shower she states she became dizzy slipped and fell hitting her head on the tub. She does complain of head and neck pain that is a 6 out of 10. She states she is continued to have intermittent dizziness that is worse when she stands. She does have associated nausea without vomiting. She denies loss of consciousness, paresthesias or paralysis. Associated symptoms-after fall: Reports headache(s) and neck pain Review of Systems 2 General: Reports: 10 or more systems reviewed and unremarkable except in HPI and below GI: Reports: nausea Musc: Reports: neck pain Neuro: Reports: headache(s) and dizziness PFSH ED 2 PFSH: Medical History (Updated 11/07/23 @ 08:30 by Estrada Syed MD) Psychiatric care Tubular adenoma of colon Psoriatic arthritis Bloating MARYJO positive Decreased GFR Gastritis Hilar lymphadenopathy Frequent falls Shortness of breath Costochondritis Chest pain Surgical History Hx of colonoscopy 11/04/22 Status post laparoscopic sleeve gastrectomy H/O laparoscopy Hx of laparoscopic partial gastrectomy Hx of cholecystectomy Hx of oophorectomy Hx of hysterectomy History of esophagogastroduodenoscopy (EGD) (~10/2019) Family History Denies family history of Anesthesia complication Bleeding disorder Social History Smoking and tobacco/nicotine status: never used tobacco/nicotine Quit status (tobacco/nicotine): has quit using Year quit tobacco: 2015 - .025PPD x15yrs Second hand smoke exposure: No Alcohol intake: current Alcohol intake frequency: few times a month Substance/Drug Use: never Lives independently: Yes Household members: spouse Marital status: Highest education level completed: High School Graduate service: No Current occupational status: employed Current occupation: [employer] Current occupational exposures/hazards: No Pets and animals: Yes Sexually active: Yes Do you think of yourself as: Straight/Heterosexual Current gender identity: Female Sarah/Anglican: Buddhist Physical Exam 2 Narrative: EXAM NARRATIVE: Constitutional: the patient appears well nourished and with normal development. Vital signs reviewed as documented. HENMT: Normocephalic, atraumatic. External ears normal appearance without drainage. Nose without drainage, normal appearance. Mucus membranes moist. Neck is supple, No jugular venous distension, trachea is midline, no appreciable carotid bruits. No lymphadenopathy. No meningeal signs. Flexion, extension and lateral rotation is without pain. Eyes: Pupils are equal, round, reactive to light and accommodation. No scleral icterus. Extra-ocular movement are intact. Thorax is symmetrical and with equal rise and fall with respirations. Resp: Lungs are clear to auscultation. No wheezes, rales, crackles or ronchi at present. Cardio: Regular rate and rhythm. Positive S1, S2. No appreciable murmurs, rubs or gallops. GI: Abdominal exam reveals normal bowel sounds to all quadrants. No organomegaly. No obvious palpable masses noted. No hepatomegally appreciated. Soft, non-tender to palpation. Extremity: Extremities are non-edematous and both femoral and pedal pulses are 2+ and equal bilaterally. Moves all extremities well, sensation in all extremities. Neuro: Alert and oriented x4, person, place, time and situation. Cranial nerves II through XII are grossly intact, there is no focal neurological deficits that I can appreciate at present. Motor strength in the upper and lower extremities are equal and bilateral 5/5. Psych: Cooperative, calm, normal thought process, appropriate judgment. Skin: No lesions, rashes. No gross abnormalities noted. Back: Symmetrical, no obvious deformity, No CVA tenderness Course 2 Reevaluation(s): Reevaluation #1: I discussed the laboratory findings and CT scan findings with the patient reevaluation after her p.o. Antivert demonstrates significant improvement in control of her intermittent dizziness. No acute findings on the CT scan. I will have her follow-up with the ear nose and throat physician. Time: 07:46 Vital Signs: Vital signs: Vital Signs Temperature 98.0 F 11/07/23 06:27 Pulse Rate 69 11/07/23 07:30 Respiratory Rate 16 11/07/23 06:54 Blood Pressure 123/78 11/07/23 07:30 Pulse Oximetry 99 11/07/23 07:30 Oxygen Delivery Me thod Room Air 11/07/23 07:30 MDM - Fall Medical Decision Making Physical exam completed and documented, I will obtain a CBC, CMP, EKG, CT scan of the head and cervical spine without contrast. I will also provide the patient meclizine. Medical Records I reviewed the patient's medical records. Lab Data I reviewed the patient's lab results. 11/07/23 07:06 11/07/23 07:06 Radiology Impressions Cervical Spine CT 11/07/23 06:34 IMPRESSION: No acute findings. Head CT 11/07/23 06:34 IMPRESSION: No acute intracranial abnormality. Laboratory Results WBC 4.31 10^3/uL (3.29-11.43) 11/07/23 07:06 RBC 4.21 10^6/uL (3.85-5.65) 11/07/23 07:06 Hgb 13.00 g/dL (11.27-16.99) 11/07/23 07:06 Hct 38.7 % (36-47) 11/07/23 07:06 MCV 91.9 fl (85-98) 11/07/23 07:06 MCH 30.9 pg (27-33) 11/07/23 07:06 MCHC 33.6 g/dL (30-55) 11/07/23 07:06 RDW 12.3 % (12.1-15.1) 11/07/23 07:06 Plt Count 163 10^3/cmm (157-399) 11/07/23 07:06 MPV 10.1 fL (7.4-10.4) 11/07/23 07:06 Neut % (Auto) 50.1 % 11/07/23 07:06 Lymph % (Auto) 40.4 % 11/07/23 07:06 [place] % (Auto) 5.8 % 11/07/23 07:06 Eos % (Auto) 3.0 % 11/07/23 07:06 Baso % (Auto) 0.5 % 11/07/23 07:06 Neut # (Auto) 2.16 10^3/uL (1.8-7.7) 11/07/23 07:06 Lymph # (Auto) 1.7 10^3/uL (0.8-4.8) 11/07/23 07:06 [place] # (Auto) 0.3 10^3/uL (0.2-0.9) 11/07/23 07:06 Eos # (Auto) 0.1 10^3/uL (0.0-0.8) 11/07/23 07:06 Baso # (Auto) 0.0 10^3/uL (0.0-0.1) 11/07/23 07:06 Nucleated RBC % (auto) 0 % 11/07/23 07:06 Nucleated RBCs # 0.0 /100WBC 11/07/23 07:06 Sodium 141 mmol/L (136-145) 11/07/23 07:06 Potassium 4.0 mmol/L (3.5-5.1) 11/07/23 07:06 Chloride 104 mmol/L (98-107) 11/07/23 07:06 Carbon Dioxide 28 mmol/L (22-29) 11/07/23 07:06 Anion Gap 13.0 (5-19) 11/07/23 07:06 BUN 12 mg/dL (6-20) 11/07/23 07:06 Creatinine 0.9 mg/dL (0.5-0.9) 11/07/23 07:06 GFR Calculation 68.0 mL/min (90-130) L 11/07/23 07:06 Glucose 95 mg/dL (65-115) 11/07/23 07:06 Calculated Osmolality 292 mOsm/kg (285-295) 11/07/23 07:06 Calcium 9.7 mg/dL (8.5-10.5) 11/07/23 07:06 Total Bilirubin 0.4 mg/dL (0.15-1.2) 11/07/23 07:06 AST 11 U/L (0-32) 11/07/23 07:06 ALT 11 U/L (0-33) 11/07/23 07:06 Alkaline Phosphatase 48 U/L (35-105) 11/07/23 07:06 Total Protein 7.1 g/dL (6.6-8.7) 11/07/23 07:06 Albumin 4.2 g/dL (3.5-5.2) 11/07/23 07:06 Globulin 2.9 g/dL (1.3-4.6) 11/07/23 07:06 All radiology interpretation(s) finalized by discharge EKG Data EKG 1: Interpretation: Twelve-lead EKG obtained at 653 and reviewed at 655 demonstrates normal sinus rhythm with a ventricular rate of 65 bpm, [place] interval 134, QRS duration 82 QT 385, QTc [address] elevation or depression to demonstrate acute ischemia or infarction at present. Discharge Plan Discharge Patient Disposition: Home Clinical Impression: Vertigo, Accidental fall Condition: Stable Prescriptions: New meclizine 25 mg tablet 25 mg PO TID Qty: 30 0RF No Action pantoprazole [Protonix] 20 mg tablet,delayed release (DR/EC) 20 mg PO DAILY Qty: 90 0RF fluoxetine 40 mg capsule 40 mg PO BID tizanidine 2 mg tablet 4 mg PO TID PRN (Reason: Muscle Spasm) Excedrin Migraine 250-250-65 mg Tablet 2 tab PO Q6H PRN (Reason: Migraine Headache) albuterol sulfate 90 mcg/actuation HFA aerosol inhaler 2 puff inhalation Q6H PRN (Reason: Shortness Of Breath) celecoxib 200 mg capsule 200 mg PO BID Hold Instructions: Resume on 08/23/23. until you speak with GI specialist Oralia(NATHEN) Pen 40 mg/0.4 mL pen injector kit 40 mg SUBCUT Q14D Discharge Orders: Discharge ED (Routine); Ordered 11/07/23 Ordered By: Estrada Syed Referrals: Aria Schwarz FNP [Primary Care Provider] - Ronny Fournier MD [Physician] - Discharge Diet: Advance as tolerated Discharge Activity: Resume usual activity Patient Instructions: Opioid Safety, Pain Management Activity Restrictions/Additional Instructions: Activity Restrictions/Additional Instructions: Thank you for choosing [facility] for your healthcare needs today. Please realize that you were seen in the Emergency Department and that we are providing you with an emergency medical screening exam and this may not be a complete and all inclusive of all the testing and or medical work-up that you may need to determine your ailment or severity of your illness. It is very important that you follow-up as instructed with your Primary care provider or Specialist for additional evaluation and to discuss your medical treatment plan. You may return to the Emergency Department should you have concerns or if your condition changes or worsens in any way. Coding Level of Care Code ED Umbrella Supervisor for Ricky Hernandez
--- NOTE | 2023-11-07 06:34 | CTR_ITS ---
PROCEDURE INFORMATION: Exam: CT Head Without Contrast Exam date and time: 11/07/2023 6:44 AM Age: 43 years old Clinical indication: Pain and injury or trauma; Fall; Other: Headache; Additional info: Trauma/fall/dizziness TECHNIQUE: Imaging protocol: Computed tomography of the head without contrast. Radiation optimization: All CT scans at this facility use at least one of these dose optimization techniques: automated exposure control; mA and/or kV adjustment per patient size (includes targeted exams where dose is matched to clinical indication); or iterative reconstruction. COMPARISON: CT head wo con* [id number] 08/29/2020 3:53 PM RADIATION DOSE METRICS: Total DLP (mGy-cm): 1231.62 FINDINGS: Brain: There is no evidence of acute parenchymal hemorrhage, extra-axial collection, or acute infarction. There is no mass effect, midline shift, or downward herniation. Cerebral ventricles: No ventriculomegaly. Paranasal sinuses: Visualized sinuses are unremarkable. No fluid levels. Mastoid air cells: Visualized mastoid air cells are well aerated. Bones/joints: Unremarkable. No acute fracture. Soft tissues: Unremarkable. CT/CT head wo con* [id number] IMPRESSION: No acute intracranial abnormality.
--- NOTE | 2023-11-07 06:34 | ECG_ITS ---
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 Measurements Intervals Kennedy Rate: 65 P: 58 MT: 134 QRS: 26 QRSD: 82 T: 18 QT: 385 QTc: 403 Interpretive Statements SINUS RHYTHM Compared to ECG 10/30/2021 12:54:42 No significant changes Electronically Signed On 11-07-2023 19:25:59 SUPPLY TEACHER by Jana Lr M.D. [email or web address] [id number]
[2023-11-07 06:54] VITALS: BP 123/86; PULSE 73; RESP 16; O2SAT 99
[2023-11-07] MEDS: meclizine 25 mg tablet 50 MG PO (06:56)
[2023-11-07 07:16] VITALS: BP 123/79; BP 142/108; BP 151/98; PULSE 78; PULSE 88; PULSE 98
--- NOTE | 2023-11-07 07:21 | PC.PHAR ---
pt states she takes care of her own medications-pt states she just got her humira injection on sat 11/05/23-pt states she is still taking prozac 40mg bid rx written 10/11/23 for prozac 60mg bid pt states insurance wont pay for 60mg bid so still taking 40mg bid
[2023-11-07 07:24] LABS: Basophils % 0.5 %; Eosinophils # 0.1 10^3/uL (0.0-0.8); Hematocrit 38.7 % (36-47); Lymphocytes # 1.7 10^3/uL (0.8-4.8); Lymphocytes % 40.4 %; Mean Corpuscular HGB Conc 33.6 g/dL (30-55); Mean Corpuscular Hemoglobin 30.9 pg (27-33); Mean Corpuscular Volume 91.9 fl (85-98); Mean Platelet Volume 10.1 fL (7.4-10.4); Monocytes # 0.3 10^3/uL (0.2-0.9); Monocytes % 5.8 %; Neutrophils # 2.16 10^3/uL (1.8-7.7); Neutrophils % 50.1 %; Nucleated Red Blood Cells % 0 %; Platelet Count 163 10^3/cmm (157-399); Red Blood Count 4.21 10^6/uL (3.85-5.65); Red Cell Distribution Width 12.3 % (12.1-15.1); White Blood Count 4.31 10^3/uL (3.29-11.43)
[2023-11-07 07:30] VITALS: BP 123/78; PULSE 69; O2SAT 99
[2023-11-07 07:32] LABS: Alanine Aminotransferase 11 U/L (0-33); Albumin Level 4.2 g/dL (3.5-5.2); Alkaline Phosphatase 48 U/L (35-105); Aspartate Amino Transferase 11 U/L (0-32); Blood Urea Nitrogen 12 mg/dL (6-20); Calcium 9.7 mg/dL (8.5-10.5); Carbon Dioxide 28 mmol/L (22-29); Chloride 104 mmol/L (98-107); Globulin 2.9 g/dL (1.3-4.6); Glucose 95 mg/dL (65-115); Osmolality Calculated 292 mOsm/kg (285-295); Sodium 141 mmol/L (136-145); Total Bilirubin 0.4 mg/dL (0.15-1.2); Total Protein 7.1 g/dL (6.6-8.7)
[2023-11-07 08:34] VITALS: BP 125/84; PULSE 71; RESP 16; TEMP 36.6; O2SAT 100
== END 2023-11-07 08:35 | disposition home or self-care (01) ==
PROVIDERS: Emergency Provider Internal Medicine; PCP Nurse Practitioner Family
DX: R42 Dizziness and giddiness (principal); Z87.891 Personal history of nicotine dependence; W18.2XXA Fall in (into) shower or empty bathtub, initial encounter
CPT/HCPCS: 36415; 70450; 72125; 80053; 85025; 93005; 99284; J8597

== ENCOUNTER 2023-12-23 16:18 | Outpatient (CLI) | payer BC, SELFPAY ==
--- NOTE | 2023-12-23 16:20 | XRR_ITS ---
PROCEDURE INFORMATION: Exam: XR Lumbosacral Spine Exam date and time: 12/23/2023 4:25 PM Age: 43 years old Clinical indication: Low back pain; Patient HX: Lower back pain radiating anterior lt leg after twisting injury x 1 week ago; Additional info: M54.16 - radiculopathy, lumbar region TECHNIQUE: Imaging protocol: Radiologic exam of the lumbosacral spine. Views: 2 or 3 views. COMPARISON: CT lumbar spine wo con* [id number] 10/30/2021 10:11 AM FINDINGS: Bones/joints: Normal. No acute fracture. Normal alignment. Soft tissues: Unremarkable. Organs: Cholecystectomy. XR/XR lumbar spine 2-3V* [id number] IMPRESSION: No acute findings.
== END 2023-12-23 16:19 | disposition home or self-care (01) ==
LOC: RAD 16:19
PROVIDERS: PCP Nurse Practitioner Family; Visit Provider Nurse Practitioner Family
DX: M54.16 Radiculopathy, lumbar region (principal)
CPT/HCPCS: 72100

== ENCOUNTER → 2024-01-16 10:50 | Outpatient (BNVA) | payer BC, SELFPAY | PROVIDERS: PCP Nurse Practitioner Family; Visit Provider Psychiatry & Neurology Neurology | DX: R55 Syncope and collapse (principal); G44.53 Primary thunderclap headache; R51.9 Headache, unspecified; G89.29 Other chronic pain; E53.8 Deficiency of other specified B group vitamins; R42 Dizziness and giddiness; H55.00 Unspecified nystagmus | CPT/HCPCS: 36415; 82607; 82652; 82746; 83735; 83921; 84439; 84443; 84481 ==

== ENCOUNTER 2024-02-08 07:13 | Outpatient (CLI) | payer BC, SELFPAY ==
--- NOTE | 2024-02-08 07:15 | MR_ITS ---
WS: [id number] MRI BRAIN WITH AND WITHOUT CONTRAST HISTORY: R55 - Syncope and collapse COMPARISON: 04/11/2019 TECHNIQUE: Multiplanar imaging performed through the brain with Sohaloce . No acute infarcts are seen. Sanchez-white matter differentiation is well preserved. No susceptibility artifacts or prior lacunar infarcts. Ventricles and extra-axial spaces are normal. Normal clivus. Seen only on the postcontrast sagittal sequence is a 2 mm low signal nodule in the pos terior pituitary gland. This could potentially represent a tiny microadenoma. Not definitely seen on the prior study. Visualized posterior fossa and brainstem are also normal. Postcontrast images are negative for masses or vascular malformations. Dural venous sinuses are normal. Paranasal sinuses: Well aerated with no significant disease. Mastoid air cells: Normal. Calvarium and scalp: Normal. MR/MR head wo/w con [id number] IMPRESSION: 1. No prior infarct. Essentially normal MRI brain. 2. Indeterminate for a possible 2 mm pituitary microadenoma seen only on the p ostcontrast sagittal sequence.
--- NOTE | 2024-02-08 08:00 | MR_ITS ---
WS: [id number] MRI LUMBAR SPINE NONCONTRAST HISTORY: M54.16 - Radiculopathy, lumbar region COMPARISON: 10/19/2019 TECHNIQUE: Sagittal and axial multisequence imaging is submitted. Normal lumbar alignment with no compression fractures or marrow edema. Disc spaces and vertebral body heights are well-preserved. Conus terminates normally at L1-2 disc level. L1-L2: Normal. L2-L3: Normal. L3-L4: Mild disc bulging with a very shallow central disc protrusion. Mild ligamentum flavum and face t arthritis. Similar findings as on the prior study. Very slight encroachment upon the traversing L4 nerve roots. L4-L5: Mild annular disc bulging with ligamentum flavum and facet arthritis. Mild disc encroachment u cezar the subarticular recesses and traversing L5 nerve roots. L5-S1: Shallow central disc protrusion. Very slight contact on the LEFT S1 traversing nerve root. Liliana y similar to the prior study. No foraminal stenosis. MR/MR lumbar spine wo con* [id number] IMPRESSION: 1. Very mild disc bulging contacting the traversing nerve roots of L4 and L5. No high-grade stenosis. 2. Very slight disc contact on the LEFT S1 traversing nerve root with no displ acement. 3. No significant progression since the prior examination of 10/19/2019. No hig h-grade stenosis.
--- NOTE | 2024-02-08 08:45 | MR_ITS ---
WS: [id number] MRA ANGIOGRAPHY [place] OF [place] HISTORY: G44.53 - Primary thunderclap headache COMPARISON: None available. TECHNIQUE: 3-D MR angiography is performed of the tribe of [place]. All images are reviewed including source images. Small caliber distal RIGHT vertebral artery. Dominant LEFT vertebral artery. Basilar artery is intact . No aneurysm. Both posterior cerebral arteries are identified. Bilateral posterior communicating art eries are both identified with the LEFT being dominant. Intracranial portion of the internal carotid arteries are normal course and caliber. No significant a therosclerosis, stenosis or aneurysm identified. Middle and anterior cerebral arteries are both paten t with no significant disease. Anterior communicating artery is also normal. MR/MR angio head wo con [id number] IMPRESSION: Normal MRA tribe of [place]. Dominant LEFT vertebral artery. No cerebral aneurysm.
== END 2024-02-08 07:14 | disposition home or self-care (01) ==
LOC: RAD 07:14
PROVIDERS: PCP Nurse Practitioner Family; Visit Provider Psychiatry & Neurology Neurology
DX: G44.53 Primary thunderclap headache (principal); R55 Syncope and collapse; M54.16 Radiculopathy, lumbar region; M51.36 Other intervertebral disc degeneration, lumbar region; D35.2 Benign neoplasm of pituitary gland
CPT/HCPCS: 70544; 70553; 72148

== ENCOUNTER 2024-02-08 09:08 | Emergency (ER) | payer BC, SELFPAY ==
--- NOTE | 2024-02-08 09:20 | ECG_ITS ---
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 Measurements Intervals [place] Rate: 76 P: 66 [place]: 140 QRS: 64 QRSD: 70 T: 67 QT: 379 QTc: 429 Interpretive Statements SINUS RHYTHM Compared to ECG 11/07/2023 06:53:35 No significant changes Electronically Signed On 02-08-2024 16:50:35 CDT by Chase Arboleda M.D. [id number] f
[2024-02-08 09:22] VITALS: BP 138/86; PULSE 82; RESP 18; TEMP 36.6; O2SAT 98; BMI 28.3
--- NOTE | 2024-02-08 10:03 | XR_ITS ---
WS: [email or web address] XR chest 1V portable [id number] REASON FOR EXAM: chest pain FINDINGS: Chest is unchanged compared to 09/14/2023. Thoracic aorta and heart are unremarkable. Calcified granulomas disease in both hemithoraces. No acute pulmonary parenchymal or pleural abnormality. Bony thorax is intact without significant focal abnormality. XR/XR chest 1V portable [id number] IMPRESSION: Stable chest with no acute abnormality.
[2024-02-08 11:10] VITALS: BP 164/97; PULSE 79; O2SAT 100
--- NOTE | 2024-02-08 11:15 | W.ED.CHESTPA ---
HPI - Chest Pain General: Chief Complaint: Chest Pain Stated Complaint: chest pain Time Seen by Provider: 02/08/24 10:54 History of Present Illness: Patient presents to the ER with these episodic sharp stabbing pains in the left side of her chest. She said these last a few seconds. When she was walking from imaging she began having these around her left intercostal sternal region. Previously she has been diagnosed with costochondritis because of similar pains. Patient is nontoxic in no acute distress at present. Patient has no history of any known heart disease. Patient denies shortness of breath, nausea, vomiting, diaphoresis Review of Systems General: Reports: 10 or more systems reviewed and unremarkable except in HPI and below PFSH ED PFSH: Medical History Nystagmus Psychiatric care Tubular adenoma of colon Psoriatic arthritis Bloating MARYJO positive Decreased GFR Gastritis Hilar lymphadenopathy Frequent falls Shortness of breath Costochondritis Chest pain Surgical History Hx of colonoscopy 11/04/22 Status post laparoscopic sleeve gastrectomy H/O laparoscopy Hx of laparoscopic partial gastrectomy Hx of cholecystectomy Hx of oophorectomy Hx of hysterectomy History of esophagogastroduodenoscopy (EGD) (~10/2019) Family History Denies family history of Anesthesia complication Bleeding disorder Social History Smoking and tobacco/nicotine status: never used tobacco/nicotine Quit status (tobacco/nicotine): has quit using Year quit tobacco: 2015 - .025PPD x15yrs Second hand smoke exposure: No Alcohol intake: current Alcohol intake frequency: few times a month Substance/Drug Use: never Lives independently: Yes Household members: spouse Marital status: Highest education level completed: High School Graduate service: No Current occupational status: employed Current occupation: [employer] Current occupational exposures/hazards: No Pets and animals: Yes Sexually active: Yes Do you think of yourself as: Straight/Heterosexual Current gender identity: Female Sarah/Latter-Day: Advent Physical Exam Const: COMMON NORMALS: no acute distress, average body habitus, patient oriented x3, no limitations, healthy appearing, alert and well nourished HENMT: COMMON NORMALS: normocephalic, atraumatic, hearing grossly normal bilaterally, external ears normal, Normal external nose present, moist oral mucous membranes and oropharynx normal HEAD & SCALP: normocephalic and atraumatic NOSE: Normal external nose present EXTERNAL EAR: Yes external ears normal Eye: COMMON NORMALS: Equal, round and reactive pupils present, EOMs intact bilaterally, conjunctivae normal and no scleral icterus CONJUNCTIVA: Yes conjunctivae normal PUPIL: Yes Equal, round and reactive pupils present Neck/C-Spine: COMMON NORMALS: full ROM, no lymphadenopathy, supple, no meningeal signs, no JVD and Thyroid normal THYROID: Thyroid normal Chest: COMMONS NORMALS: normal inspection of the chest; negative for normal palpation of entire chest wall (Palpation of left anterior chest wall reproduces pain) Resp: COMMON NORMALS: normal respiratory effort, No retractions, No use of accessory muscles and clear to auscultation bilaterally AUSCULTATION: clear to auscultation bilaterally Cardio: COMMON NORMALS: no JVD, regular rate, regular rhythm, S1 normal heart sound present, S2 normal heart sound present, No gallops present (Cardio), No clicks present (Cardio), No murmurs present (Cardio) and No rub (Cardio) RATE: regular rate RHYTHM: regular rhythm HEART SOUNDS: S1 normal heart sound present and S2 normal heart sound present GI: COMMON NORMALS: Normal to inspection, nondistended, normoactive bowel sounds present, Soft to palpation, non-tender, No hepatosplenomegaly present and no masses PALPATION: Yes Soft to palpation and Yes No hepatosplenomegaly present Neuro: COMMON NORMALS: patient oriented x3 SENSORIUM/ORIENTATION: Yes alert MENINGEAL SIGNS: Yes no meningeal signs Course Vital Signs: Vital signs: Vital Signs Temperature 97.9 F 02/08/24 09:22 Pulse Rate 70 02/08/24 13:05 Respiratory Rate 18 02/08/24 09:22 Blood Pressure 129/86 02/08/24 13:05 Pulse Oximetry 100 02/08/24 13:05 Oxygen Delivery Me thod Room Air 02/08/24 12:16 MDM - Chest Pain Medical Decision Making Chest pain workup included CBC CMP cardiac enzymes EKG chest x-ray urinalysis all of which was essentially negative for acute causes of your chest pain. Patient be discharged back to her primary care for further evaluation and treatment. Is thought to be atypical chest pain Differential Diagnosis Unlikely acute massive pulmonary embolism, acute respiratory failure, acute myocardial infarction, cardiac arrest or sudden cardiac Medical Records I reviewed the patient's medical records. Lab Data I reviewed the patient's lab results. 02/08/24 11:25 02/08/24 11:25 Radiology Impressions Chest X-Ray 02/08/24 10:03 IMPRESSION: Stable chest with no acute abnormality. Laboratory Results WBC 5.79 10^3/uL (3.29-11.43) 02/08/24 11:25 RBC 4.74 10^6/uL (3.85-5.65) 02/08/24 11:25 Hgb 14.70 g/dL (11.27-16.99) 02/08/24 11:25 Hct 44.1 % (36-47) 02/08/24 11:25 MCV 93.0 fl (85-98) 02/08/24 11:25 MCH 31.0 pg (27-33) 02/08/24 11:25 MCHC 33.3 g/dL (30-55) 02/08/24 11:25 RDW 12.5 % (12.1-15.1) 02/08/24 11:25 Plt Count 223 10^3/cmm (157-399) 02/08/24 11:25 MPV 9.6 fL (7.4-10.4) 02/08/24 11:25 Neut % (Auto) 60.3 % 02/08/24 11:25 Lymph % (Auto) 33.9 % 02/08/24 11:25 [place] % (Auto) 4.1 % 02/08/24 11:25 Eos % (Auto) 1.0 % 02/08/24 11:25 Baso % (Auto) 0.5 % 02/08/24 11:25 Neut # (Auto) 3.49 10^3/uL (1.8-7.7) 02/08/24 11:25 Lymph # (Auto) 2.0 10^3/uL (0.8-4.8) 02/08/24 11:25 [place] # (Auto) 0.2 10^3/uL (0.2-0.9) 02/08/24 11:25 Eos # (Auto) 0.1 10^3/uL (0.0-0.8) 02/08/24 11:25 Baso # (Auto) 0.0 10^3/uL (0.0-0.1) 02/08/24 11:25 Nucleated RBC % (auto) 0 % 02/08/24 11:25 Nucleated RBCs # 0.0 /100WBC 02/08/24 11:25 Sodium 140 mmol/L (136-145) 02/08/24 11:25 Potassium 3.4 mmol/L (3.5-5.1) L 02/08/24 11:25 Chloride 102 mmol/L (98-107) 02/08/24 11:25 Carbon Dioxide 24 mmol/L (22-29) 02/08/24 11:25 Anion Gap 17.4 (5-19) 02/08/24 11:25 BUN 7 mg/dL (6-20) 02/08/24 11:25 Creatinine 0.8 mg/dL (0.5-0.9) 02/08/24 11:25 GFR Calculation 77.6 mL/min (90-130) L 02/08/24 11:25 Glucose 83 mg/dL (65-115) 02/08/24 11:25 Calculated Osmolality 287 mOsm/kg (285-295) 02/08/24 11:25 Calcium 9.7 mg/dL (8.5-10.5) 02/08/24 11:25 Total Bilirubin 0.5 mg/dL (0.15-1.2) 02/08/24 11:25 AST 23 U/L (0-32) 02/08/24 11:25 ALT 25 U/L (0-33) 02/08/24 11:25 Alkaline Phosphatase 66 U/L (35-105) 02/08/24 11:25 Troponin T Baseline < 6 ng/L (0-10) 02/08/24 11:25 Troponin T 120 Minute 6.00 ng/L (0-10) 02/08/24 13:25 Delta Troponin T 0.57869 ABS# (0-10) 02/08/24 13:25 Total Protein 8.3 g/dL (6.6-8.7) 02/08/24 11:25 Albumin 4.7 g/dL (3.5-5.2) 02/08/24 11:25 Globulin 3.6 g/dL (1.3-4.6) 02/08/24 11:25 Urine Color Yellow (Yellow) 02/08/24 12:14 Urine Appearance Hazy (CLEAR) A 02/08/24 12:14 Urine pH 8 (5-7) H 02/08/24 12:14 Ur Specific [place] 1.010 (1.005-1.030) 02/08/24 12:14 Urine Protein Neg (Negative) 02/08/24 12:14 Urine Glucose (UA) Norm (Normal) 02/08/24 12:14 Urine Ketones 1+ (Negative) H 02/08/24 12:14 Urine Blood Neg (Negative) 02/08/24 12:14 Urine Nitrate Negative (Negative) 02/08/24 12:14 Urine Bilirubin Neg (Negative) 02/08/24 12:14 Prot Sulfosalicylic Acd Negative (Negative) 02/08/24 12:14 Urine Urobilinogen Norm mg/dL (Negative) 02/08/24 12:14 Ur Leukocyte Esterase Negative (Negative) 02/08/24 12:14 Urine RBC None /hpf (0-2) 02/08/24 12:14 Urine WBC None /hpf (0-5) 02/08/24 12:14 Ur Squamous Epith Cells 0-4 /hpf (0-5) H 02/08/24 12:14 Amorphous Sediment 2+ /hpf 02/08/24 12:14 Urine Bacteria 1+ /hpf (NONE) H 02/08/24 12:14 All radiology interpretation(s) finalized by discharge Discharge Plan Discharge Patient Disposition: Home Clinical Impression: Atypical chest pain Condition: Stable Prescriptions: No Action fluoxetine 40 mg capsule 40 mg PO BID Qty: 60 1RF tizanidine 2 mg tablet 4 mg PO TID PRN (Reason: Muscle Spasm) Excedrin Migraine 250-250-65 mg Tablet 2 tab PO Q6H PRN (Reason: Migraine Headache) albuterol sulfate 90 mcg/actuation HFA aerosol inhaler 2 puff INHALATION Q6H PRN (Reason: Shortness Of Breath) pantoprazole 20 mg tablet,delayed release (DR/EC) 20 mg PO QAM celecoxib 200 mg capsule 200 mg PO BID Hold Instructions: Resume on 11/14/23. until you speak with GI specialist Oralia(CF) Pen 40 mg/0.4 mL pen injector kit 40 mg SUBCUT Q14D Rx Instructions: EVERY OTHER TUESDAY Discharge Orders: Discharge ED (Routine); Ordered 02/08/24 Ordered By: Vin Best Referrals: Aria Schwarz FNP [Primary Care Provider] - 1 week Patient Instructions: Noncardiac Chest Pain (ED) Activity Restrictions/Additional Instructions: Your evaluation in the ER that included physical exam, lab work, urinalysis, chest x-ray, EKGs all do not point to a acute cardiac cause of your chest pain. Your chest pain is felt to be noncardiac in nature. Please follow-up with your family practice physician for further evaluation testing. Coding Level of Care Code ED Carton Marker Machine for Ricky Hernandez
[2024-02-08 11:41] LABS: Basophils % 0.5 %; Eosinophils # 0.1 10^3/uL (0.0-0.8); Hematocrit 44.1 % (36-47); Lymphocytes % 33.9 %; Mean Corpuscular HGB Conc 33.3 g/dL (30-55); Mean Platelet Volume 9.6 fL (7.4-10.4); Monocytes # 0.2 10^3/uL (0.2-0.9); Monocytes % 4.1 %; Neutrophils # 3.49 10^3/uL (1.8-7.7); Neutrophils % 60.3 %; Nucleated Red Blood Cells % 0 %; Platelet Count 223 10^3/cmm (157-399); Red Blood Count 4.74 10^6/uL (3.85-5.65); Red Cell Distribution Width 12.5 % (12.1-15.1); White Blood Count 5.79 10^3/uL (3.29-11.43)
[2024-02-08 11:57] LABS: Troponin(5th) Baseline < 6 ng/L (0-10)
--- NOTE | 2024-02-08 12:06 | ECG_ITS ---
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 Measurements Intervals [place] Rate: 68 P: 59 [place]: 138 QRS: 63 QRSD: 78 T: 65 QT: 391 QTc: 418 Interpretive Statements SINUS RHYTHM Compared to ECG 02/08/2024 09:20:11 No significant changes Electronically Signed On 02-08-2024 16:57:09 CDT by Chase Arboleda M.D. [id number]
[2024-02-08 12:15] LABS: Alanine Aminotransferase 25 U/L (0-33); Albumin Level 4.7 g/dL (3.5-5.2); Alkaline Phosphatase 66 U/L (35-105); Anion Gap 17.4 (5-19); Aspartate Amino Transferase 23 U/L (0-32); Blood Urea Nitrogen 7 mg/dL (6-20); Calcium 9.7 mg/dL (8.5-10.5); Carbon Dioxide 24 mmol/L (22-29); Chloride 102 mmol/L (98-107); Globulin 3.6 g/dL (1.3-4.6); Glomerular Filtration Rate 77.6 mL/min (90-130); Glucose 83 mg/dL (65-115); Osmolality Calculated 287 mOsm/kg (285-295); Potassium 3.4 mmol/L (3.5-5.1); Sodium 140 mmol/L (136-145); Total Bilirubin 0.5 mg/dL (0.15-1.2); Total Protein 8.3 g/dL (6.6-8.7)
[2024-02-08 12:16] VITALS: BP 138/87; PULSE 61; O2SAT 100
[2024-02-08 12:31] LABS: Urine Appearance Hazy (CLEAR); Urine Color Yellow (Yellow); pH Urine 8 (5-7)
[2024-02-08 12:32] LABS: Bilirubin Urine Neg (Negative); Blood Urine Neg (Negative); Glucose Urine UA Norm (Normal); Ketones Urine 1+ (Negative); Leukocyte Esterase Urine Negative (Negative); Nitrate Urine Negative (Negative); Protein Urine Neg (Negative); Sulfosalicylic Acid Urine Negative (Negative); Urobilinogen Urine Norm (Negative)
[2024-02-08 12:33] LABS: Add Urine Culture? No; Add Urine Microscopic? YES; Amorphous Sediment Urine 2+ /hpf; Bacteria Urine 1+ /hpf; Squamous Epithelial Cell Urine 0-4 /hpf (0-5)
[2024-02-08 13:05] VITALS: BP 129/86; PULSE 70; O2SAT 100
[2024-02-08 13:50] LABS: Troponin 5 2HR Delta 0.00001 ABS# (0-10)
[2024-02-08 14:09] VITALS: BP 139/77; PULSE 96; RESP 17; O2SAT 98
== END 2024-02-08 14:10 | disposition home or self-care (01) ==
PROVIDERS: Emergency Provider Emergency Medicine; PCP Nurse Practitioner Family
DX: R07.89 Other chest pain (principal); Z87.891 Personal history of nicotine dependence
CPT/HCPCS: 36415; 71045; 80053; 81001; 84484; 85025; 93005; 99285; A9577

== ENCOUNTER 2024-02-11 15:46 | Emergency (ER) | payer BC, SELFPAY ==
[2024-02-11 15:54] VITALS: BP 142/87; PULSE 90; RESP 17; TEMP 36.8; O2SAT 97; BMI 28.0
--- NOTE | 2024-02-11 16:14 | W.ED.WOUNDLC ---
HPI - Wound/Laceration General: Chief Complaint: Wound/Laceration Stated Complaint: dog bite, back left thigh Time Seen by Provider: 02/11/24 16:11 History of Present Illness: Patient comes in today for evaluation of injury to the left posterior upper thigh. Patient was bit by a family friend's dog when feeling frightened. The dog is being monitored by the family for signs of rabies. Dog has been immunized for rabies. Patient is on Humira which makes her immunocompromised. Patient cannot remember her last tetanus and needs a tetanus update. Patient reports some pain and discomfort to the thigh but otherwise is doing well. Patient has psoriasis is a chronic illness. Review of Systems General: Reports: 10 or more systems reviewed and unremarkable except in HPI and below Musc: Reports: extremity pain Skin/Breast: Reports: new lesions PFSH ED PFSH: Medical History Nystagmus Psychiatric care Tubular adenoma of colon Psoriatic arthritis Bloating MAYRJO positive Decreased GFR Gastritis Hilar lymphadenopathy Frequent falls Shortness of breath Costochondritis Chest pain Surgical History Hx of colonoscopy 11/04/22 Status post laparoscopic sleeve gastrectomy H/O laparoscopy Hx of laparoscopic partial gastrectomy Hx of cholecystectomy Hx of oophorectomy Hx of hysterectomy History of esophagogastroduodenoscopy (EGD) (~10/2019) Family History Denies family history of Anesthesia complication Bleeding disorder Social History Smoking and tobacco/nicotine status: never used tobacco/nicotine Quit status (tobacco/nicotine): has quit using Year quit tobacco: 2015 - .025PPD x15yrs Second hand smoke exposure: No Alcohol intake: current Alcohol intake frequency: few times a month Substance/Drug Use: never Lives independently: Yes Household members: spouse Marital status: Highest education level completed: High School Graduate service: No Current occupational status: employed Current occupation: [employer] Current occupational exposures/hazards: No Pets and animals: Yes Sexually active: Yes Do you think of yourself as: Straight/Heterosexual Current gender identity: Female Sarah/Pentecostal: Yazidi Physical Exam Const: COMMON NORMALS: alert HENMT: COMMON NORMALS: normocephalic HEAD & SCALP: normocephalic Neck/C-Spine: COMMON NORMALS: full ROM Chest: COMMONS NORMALS: normal inspection of the chest Resp: COMMON NORMALS: normal respiratory effort Cardio: COMMON NORMALS: regular rate RATE: regular rate GI: COMMON NORMALS: non-tender Back/Pelvis: COMMON NORMALS: thoracic and lumbar spine normal to inspection Extremity: LEFT LOWER EXTREMITY: Yes upper leg (Posterior leg has bruising with puncture wounds consistent with dog bite) Neuro: SENSORIUM/ORIENTATION: Yes alert Skin: TRAUMA: abrasion (Left posterior thigh) and puncture (3 puncture wounds left upper thigh posterior) Course Vital Signs: Vital signs: Vital Signs Temperature 98.3 F 02/11/24 15:54 Pulse Rate 90 02/11/24 15:54 Respiratory Rate 17 02/11/24 15:54 Blood Pressure 142/87 02/11/24 15:54 Pulse Oximetry 97 02/11/24 15:54 Oxygen Delivery Me thod Room Air 02/11/24 15:54 MDM - Wound/Laceration Medical Decision Making Patient comes in today for treatment of dog bite to the left upper thigh. On exam no area of bruising over for abrasions or puncture wounds to the posterior left upper thigh. Patient has good range of motion. Patient cannot recall her last tetanus. Differential diagnosis includes but not limited to puncture wound, contusion, need for prophylaxis antibiotic, need for prophylaxis tetanus, need for prophylaxis rabies. Locomotive Driver of the dog is monitoring the dog for signs of rabies and dog has been confirmed to have had its vaccinations. Will start patient on Augmentin to cover for puncture wounds and infection. Patient's tetanus was updated. Patient was given short course of hydrocodone for pain. No radiology studies performed this visit Discharge Plan Discharge Condition: Stable Prescriptions: No Action fluoxetine 40 mg capsule 40 mg PO BID Qty: 60 1RF tizanidine 2 mg tablet 4 mg PO TID PRN (Reason: Muscle Spasm) Excedrin Migraine 250-250-65 mg Tablet 2 tab PO Q6H PRN (Reason: Migraine Headache) albuterol sulfate 90 mcg/actuation HFA aerosol inhaler 2 puff INHALATION Q6H PRN (Reason: Shortness Of Breath) pantoprazole 20 mg tablet,delayed release (DR/EC) 20 mg PO QAM celecoxib 200 mg capsule 200 mg PO BID Hold Instructions: Resume on 08/23/23. until you speak with GI specialist Oralia(CF) Pen 40 mg/0.4 mL pen injector kit 40 mg SUBCUT Q14D Rx Instructions: EVERY OTHER TUESDAY Referrals: Aria Schwarz FNP [Primary Care Provider] - Coding Level of Care Code ED Fac Engineer for Ricky Hernandez
[2024-02-11] MEDS: HYDROcodone-acetaminophen 5-325 mg Tablet 1 TAB PO (16:29)
[2024-02-11] MEDS: amoxicillin-clav 875-125 mg Tablet 1 TAB PO (16:29)
[2024-02-11] MEDS: tetanus-dipt-pertussis 0.5 mL SDV IM (16:29)
[2024-02-11 16:35] VITALS: BP 138/86; PULSE 84; RESP 16; TEMP 36.8; O2SAT 99
== END 2024-02-11 16:36 | disposition home or self-care (01) ==
PROVIDERS: Emergency Provider Nurse Practitioner Family; PCP Nurse Practitioner Family
DX: S71.152A Open bite, left thigh, initial encounter (principal); W54.0XXA Bitten by dog, initial encounter; Z87.891 Personal history of nicotine dependence; Z23 Encounter for immunization
CPT/HCPCS: 90471; 90715; 99283

== ENCOUNTER 2024-03-15 07:51 | Outpatient (RCR) | payer BC, SELFPAY | END 2024-03-30 23:59 | disposition home or self-care (01) | LOC: SPT 07:51 | PROVIDERS: PCP Nurse Practitioner Family; Visit Provider Nurse Practitioner Family | DX: M54.16 Radiculopathy, lumbar region (principal); M62.81 Muscle weakness (generalized) | CPT/HCPCS: 97110; 97161 ==

== ENCOUNTER 2024-05-10 15:30 | Outpatient (CLI) | payer BC, SELFPAY ==
--- NOTE | 2024-05-10 15:30 | MM_ITS ---
WS: [email or web address] Bilateral screening 3D tomosynthesis digital mammogram, 05/10/2024 Clinical Data: Z12.39 - Encounter for other screening for malignant neop... Comparison: 07/23/2022, 07/13/2021, 03/16/2019, 08/30/2017. Findings: The breast parenchymal pattern shows fibroglandular tissue. No spiculated masses or clustered calcifi cations are seen. There are no secondary signs of carcinoma. MM/[place] [id number] Impression: 1. Negative bilateral mammogram unchanged. 2. Recommend annual screening mammograms. BIRADS: 1-Negative FOLLOW UP: 1 Year Follow-up The CAD hot box checker was used.
== END 2024-05-10 15:31 | disposition home or self-care (01) ==
PROVIDERS: PCP Nurse Practitioner Family; Visit Provider Nurse Practitioner Family
DX: Z12.31 Encounter for screening mammogram for malignant neoplasm of breast (principal); Z12.39 Encounter for other screening for malignant neoplasm of breast
CPT/HCPCS: 77063; 77067

== ENCOUNTER → 2024-05-17 15:43 | Outpatient (BNVA) | payer BC, SELFPAY | PROVIDERS: PCP Nurse Practitioner Family; Visit Provider Orthopaedic Surgery | DX: M54.16 Radiculopathy, lumbar region (principal) | CPT/HCPCS: 72110 ==

== ENCOUNTER 2024-06-19 11:55 | Outpatient (CLI) | payer BC, SELFPAY ==
--- NOTE | 2024-06-19 12:15 | MR_ITS ---
WS: [id number] MRI LUMBAR SPINE WITH AND WITHOUT CONTRAST HISTORY: Low back pain. Groin pain. COMPARISON: 02/08/2024 TECHNIQUE: Sagittal and axial multisequence imaging is submitted. MultiHance 14 mL. Normal lumbar alignment with no compression fractures or marrow edema. Disc spaces and vertebral body heights are well-preserved. Conus terminates normally at L1-2 disc level. L1-L2: Normal. L2-L3: Normal. L3-L4: Mild annular disc bulging. Disc encroaches upon the traversing L4 nerve roots. Very mild ligam entum flavum and facet arthritis. Greater disc contact on the L4 nerve roots. L4-L5: Mild annular disc bulging with mild ligamentum flavum and facet arthritis. Minimal encroachmen t upon the traversing L5 nerve roots. No high-grade stenosis. L5-S1: Mild disc bulging with a central disc protrusion. Central disc protrusion with mild contact on the LEFT S1 nerve root. No high-grade stenosis. No discitis or osteomyelitis. No enhancing mass. MR/MR lumbar spine wo/w con [id number] IMPRESSION: 1. Mild annular disc bulging at L3-4 and L4-5. Mild disc encroachment upon the traversing L4 and L5 nerve roots. 2. No high-grade central or foraminal stenosis. 3. Small central disc protrusion L5-S1 with minimal contact on the LEFT S1 ner ve root. No change. 4. No discitis or osteomyelitis. No enhancing masses.
[2024-06-19] MEDS: gadobenate dimeglumine 20 mL vial IV (12:23)
== END 2024-06-19 11:56 | disposition home or self-care (01) ==
LOC: RAD 11:56
PROVIDERS: PCP Nurse Practitioner Family; Visit Provider Orthopaedic Surgery
DX: M51.26 Other intervertebral disc displacement, lumbar region (principal)
CPT/HCPCS: 72158

== ENCOUNTER → 2024-07-03 15:13 | Outpatient (BNVA) | payer BC, SELFPAY | PROVIDERS: PCP Nurse Practitioner Family; Visit Provider Orthopaedic Surgery | DX: M54.9 Dorsalgia, unspecified (principal) | CPT/HCPCS: 36415; 80053; 81001; 85025 ==

== ENCOUNTER → 2024-07-10 10:08 | Outpatient (BNVA) | payer BC, SELFPAY | PROVIDERS: PCP Nurse Practitioner Family; Visit Provider Nurse Practitioner Family | DX: R82.90 Unspecified abnormal findings in urine (principal) | CPT/HCPCS: 81000 ==

== ENCOUNTER 2024-07-13 07:16 | Day surgery (SDC) | payer BC, SELFPAY ==
[2024-07-13] VITALS (11 sets, daily range): BP systolic 94–127; BP diastolic 62–93; PULSE 72–115; RESP 10–18; TEMP 36.2; O2SAT 94–100
[2024-07-13] MEDS: sodium chloride 0.9% 1,000 ML 30 ML IV (07:48)
--- NOTE | 2024-07-13 07:52 | ANES.PREANE2 ---
Pre-Anesthetic Assessment Height/Weight: Height 5 ft 2 in Weight 157 lb Temp Pulse Resp BP Pulse Ox O2 Del Method 97.2 F L 72 18 108/86 96 Room Air 07/13/24 07:25 07/13/24 07:25 07/13/24 07:25 07/13/24 07:25 07/13/24 07:25 07/13/24 07:27 Operation Date: 07/13/24 09:00 Proposed Procedures p Lumbar Spine Decompression Lumbar Decompression(Not Applicable) - Jd Sandoval DO Last intake: Intake Last Liquid Date 07/12/24 Last Liquid Time 20:00 Last Solid Date 07/12/24 Last Solid Time 18:30 Social No alcohol Smokes marijuana nightly Exam alert, oriented x 3, clear to auscultation bilaterally and regular rate & rhythm Airway Submandibular: within normal limits Cervical ROM: within normal limits Mallampati: Class II Dentition: full Anesthetic Plan ASA status: 2 Anesthesia: General Other: No prior issues with anesthesia NPO since yesterday History of GERD on Protonix Labs 06/29/2024 reviewed acceptable for procedure EKG sinus rhythm METS greater than 4 Plan for GETA Medications/Allergies Home Medications Medication Instructions Recorded Confirmed Last Taken Type celecoxib 200 mg capsule 200 mg PO BID 08/16/23 07/12/24 07/06/24 History ebsremn-owumbbzohdnwi-inkgpmew 250 2 tab PO Q6H PRN Migraine Headache 11/07/23 07/12/24 11/06/23 History mg-250 mg-65 mg tablet (Excedrin Migraine) tizanidine 2 mg tablet 4 mg PO TID PRN Muscle Spasm 11/07/23 07/12/24 07/08/24 History fluoxetine 40 mg capsule 40 mg PO BID #60 caps 11/15/23 07/12/24 07/13/24 Rx upadacitinib 15 mg tablet,extended 15 mg PO DAILY 05/14/24 07/12/24 07/04/24 History release 24 hr (Rinvoq) pantoprazole 20 mg tablet,delayed 20 mg PO QAM #90 tabs 06/22/24 07/12/24 07/13/24 Rx release oxybutynin chloride 5 mg 5 mg PO DAILY #30 tabs 07/12/24 07/12/24 07/12/24 Rx tablet,extended release 24 hr Allergies Allergy/AdvReac Type Severity Reaction Status Date / Time morphine Allergy Unknown Verified 07/12/24 12:54 Current Medications Generic Name Dose Route Start Last Admin Trade Name Celeste PRN Reason Stop Dose Admin Sodium Chloride 1,000 mls @ 30 mls/hr 07/13/24 07:30 07/13/24 07:48 Sodium Chloride 0.9% IV 07/14/24 07:29 30 mls/hr .Q24H MARTHA Administration PFSH Anesthesia Medical History Nystagmus Psychiatric care Tubular adenoma of colon Psoriatic arthritis Bloating MARYJO positive Decreased GFR Gastritis Hilar lymphadenopathy Frequent falls Shortness of breath Costochondritis Chest pain Surgical History Hx of colonoscopy 11/04/22 Status post laparoscopic sleeve gastrectomy H/O laparoscopy Hx of laparoscopic partial gastrectomy Hx of cholecystectomy Hx of oophorectomy Hx of hysterectomy History of esophagogastroduodenoscopy (EGD) (~10/2019) Family History Denies family history of Anesthesia complication Bleeding disorder Social History Smoking and tobacco/nicotine status: never used tobacco/nicotine Quit status (tobacco/nicotine): has quit using Year quit tobacco: 2015 - .025PPD x15yrs Second hand smoke exposure: No Alcohol intake: current Alcohol intake frequency: few times a month Substance/Drug Use: never Lives independently: Yes Household members: spouse Marital status: Highest education level completed: High School Graduate service: No Current occupational status: employed Current occupation: [employer] Current occupational exposures/hazards: No Pets and animals: Yes Sexually active: Yes Do you think of yourself as: Straight/Heterosexual Current gender identity: Female Sarah/Taoism: Anabaptism Data Anesthesia Cardiac Studies: Echocardiogram Ultrasound 08/20/20
[2024-07-13] MEDS: ceFAZolin 2,000 mg SDV 2000 MG IVP (08:28)
--- NOTE | 2024-07-13 08:34 | W.PM.OPSUD ---
Surgery/Procedure H&P Update DATE OF PROCEDURE: July 13, 2024 DATE H&P PERFORMED: 07/10/24 H&P UPDATE INFORMATION: I have reviewed H&P completed within last 30 days, I have examined patient prior to procedure and No changes to prior documentation PLANNED PROCEDURE: Operation Date: 07/13/24 09:00 Proposed Procedures p Lumbar Spine Decompression Lumbar Decompression(Not Applicable) - Jd Sandoval DO
[2024-07-13] MEDS: lidocaine-epi 1% 20 mL INJ INJECTION (08:57)
--- NOTE | 2024-07-13 10:22 | P.OP_ITS ---
Operative Report Date of procedure: July 13, 2024 Pre-op diagnosis: Lumbar stenosis with neurogenic claudication Post-op diagnosis: same Procedure done: 1. L3-4 laminectomy with partial facetectomy 2. L4-5 laminectomy with partial facetectomy 3. L5-S1 laminectomy with partial facetectomy Surgeon: Jd Sandoval DO Estimated blood loss (mL): 50 Procedure: 1. L3-4 laminectomy with partial facetectomy 2. L4-5 laminectomy with partial facetectomy 3. L5-S1 laminectomy with partial facetectomy Patient is brought to the operative suite. After undergoing anesthesia they are placed in the prone position. All areas of impingement are well padded. Patient is then prepped and draped in the normal sterile fashion. A skin incision is made over the L3-4 level. This is confirmed under c-arm guidance. A series of dilators are passed and the tubular retractor is docked on the L3 lamina. A bovie is used to clear the soft tissue off the lamina and the L 3/4 facet joint. A high speed pete is then used to perform the laminectomy and take down the medial aspect of the L 3/4 facet joint. A kerrison rongeure was then used to take down the remaining lamina and smooth the edge of the laminectomy up to the point where the ligamentum flavum attaches. Attention was then brought to the medial aspect of the facet joint. The remaining medial aspect of the superior and inferior aspect of the facet joint were taken down with the kerrison from the pedicle of L3 to L 4. The facet cheryl nt had significant hypertrophy. Attention was then brought to the Ligamentum Flavum. The ligament was taken down from the lamina of L3 to L4 and out medially to the remaining facet joint. The ligament was thick. The dura was then exposed. The dura was in good repair. The L3 nerve was then traced with a curette out the L3/4 foramen and found to be adequately decompressed. The L4 nerve was traced with a curette around the L4 pedicle. The lateral recess was opened with a kerrison helping to further decompress the L4 nerve. Wound is then irrigated copiously with saline and surgiflo is used to stop any bleeding. The tubular retractor is removed and the A skin incision is made over the L4-5 level. This is confirmed under c-arm guidance. A series of dilators are passed and the tubular retractor is docked on the L4 lamina. A bovie is used to clear the soft tissue off the lamina and the L 4/5 facet joint. A high speed pete is then used to perform the laminectomy and take down the medial aspect of the L 4/5 facet joint. A kerrison rongeure was then used to take down the remaining lamina and smooth the edge of the laminectomy up to the point where the ligamentum flavum attaches. Attention was then brought to the medial aspect of the facet joint. The remaining medial aspect of the superior and inferior aspect of the facet joint were taken down with the kerrison from the pedicle of L4 to L 5. The facet joint had significant hypertrophy. Attention was then brought to the Ligamentum Flavum. The ligament was taken down from the lamina of L4 to L5 and out medially to the remaining facet joint. The ligament was thick. The dura was then exposed. The dura was in good repair. The L4 nerve was then traced with a curette out the L4/5 foramen and found to be adequately decompressed. The L5 nerve was traced with a curette around the L5 pedicle. The lateral recess was opened with a kerrison helping to further decompress the L5 nerve. Wound is then irrigated copiously with saline and surgiflo is used to stop any bleeding. The tubular retractor is removed and the A skin incision is made over the L5/S1 level. This is confirmed under c-arm guidance. A series of dilators are passed and the tubular retractor is docked on the L5 lamina. A bovie is used to clear the soft tissue off the lamina and the L 5/S1 facet joint. A high speed pete is then used to perform the laminectomy and take down the medial aspect of the L 5/S1 facet joint. A kerrison rongeure was then used to take down the remaining lamina and smooth the edge of the laminectomy up to the point where the ligamentum flavum attaches. Attention was then brought to the medial aspect of the facet joint. The remaining medial aspect of the superior and inferior aspect of the facet joint were taken down with the kerrison from the pedicle of L5 to S1. The facet joint had significant hypertrophy. Attention was then brought to the Ligamentum Flavum. The ligament was taken down from the lamina of L5 to S1 and out medially to the remaining facet joint. The ligament was thick. The dura was then exposed. The dura was in good repair. The L5 nerve was then traced with a curette out the L5/S1 foramen and found to be adequately decompressed. The S1 nerve was traced with a curette around the S1 pedicle. The lateral recess was opened with a kerrison helping to further decompress the S1 nerve. Wound is then irrigated copiously with saline and surgiflo is used to stop any bleeding. The tubular retractor is removed and the wound is closed with vicryl and monocryl suture. Glue is then used to protect the wound. A sterile dressing is then placed. Patient was then placed in the supine position and transferred to the PACU in stable condition.
--- NOTE | 2024-07-13 10:50 | XR_ITS ---
WS: [id number] Exam: XR lumbar spine 2-3V* [id number] Date/Time of Exam: 07/13/2024 10:50 AM Reason For Exam: OR PICS Intraoperative AP images of the lower lumbar spine are submitted. Images were obtained for preoperative localization purposes.
--- NOTE | 2024-07-13 11:45 | ANE.PACU2 ---
Inpatient post-anesthesia follow up: Airway intact: Yes Vital signs: Temperature 97.1 F Pulse Rate 94 Respiratory Rate 16 Blood Pressure 126/79 Pulse Oximetry 96 Oxygen Delivery Me thod Room Air Oxygen Flow Rate 8 Fraction of Inspir ed Oxygen Hydration adequate: Yes Nausea and vomiting: No Pain level: 1 Mental status: Baseline
== END 2024-07-13 11:45 | disposition home or self-care (01) ==
PROVIDERS: PCP Nurse Practitioner Family; Visit Provider Orthopaedic Surgery
PROC: (CPT 63005; principal; 2024-07-13 08:40)
DX: M48.062 Spinal stenosis, lumbar region with neurogenic claudication (principal); K21.9 Gastro-esophageal reflux disease without esophagitis
CPT/HCPCS: 63047; 63048 ×2; 72100; 76000; J0131; J0690; J1100; J1170; J2250; J2405; J2704; J3010; J3490; J7030

== ENCOUNTER → 2024-07-31 12:58 | Outpatient (BNVA) | payer BC, SELFPAY | PROVIDERS: PCP Nurse Practitioner Family; Visit Provider Nurse Practitioner Family | DX: N39.0 Urinary tract infection, site not specified (principal) | CPT/HCPCS: 81000 ==

== ENCOUNTER 2024-10-30 13:28 | Observation (INO) | payer BC, SELFPAY ==
[2024-10-25 08:53] LABS: Basophils % 0.3 %; Eosinophils # 0.1 10^3/uL (0.0-0.8); Eosinophils % 1.9 %; Hematocrit 41.1 % (36-47); Lymphocytes # 1.4 10^3/uL (0.8-4.8); Lymphocytes % 21.1 %; Mean Corpuscular HGB Conc 33.3 g/dL (30-55); Mean Platelet Volume 9.5 fL (7.4-10.4); Monocytes # 0.3 10^3/uL (0.2-0.9); Monocytes % 4.7 %; Neutrophils % 71.8 %; Nucleated Red Blood Cells % 0 %; Platelet Count 261 10^3/cmm (157-399); Red Blood Count 4.42 10^6/uL (3.85-5.65); Red Cell Distribution Width 12.5 % (12.1-15.1)
[2024-10-25 08:59] LABS: Bilirubin Urine Negative (Negative); Blood Urine Negative (Negative); Glucose Urine UA Negative (Normal); Ketones Urine Negative (Negative); Leukocyte Esterase Urine Negative (Negative); Nitrate Urine Negative (Negative); Protein Urine Negative (Negative); Specific Gravity, Urine 1.016 (1.005-1.030); Urine Appearance Turbid (CLEAR); Urine Color Yellow (Yellow); Urobilinogen Urine 0.2 mg/dL (Negative)
[2024-10-25 09:04] LABS: Add Urine Microscopic? YES; Bacteria Urine None Seen /hpf; Hyaline Casts Urine 0-4 /lpf; RBC Urine 0-2 /hpf (0-2); Squamous Epithelial Cell Urine 0-5 /hpf (0-5); WBC Urine 0-5 /hpf (0-5)
[2024-10-25 09:14] LABS: Alanine Aminotransferase 16 U/L (0-33); Albumin Level 4.6 g/dL (3.5-5.2); Alkaline Phosphatase 65 U/L (35-105); Aspartate Amino Transferase 18 U/L (0-32); Blood Urea Nitrogen 10 mg/dL (6-20); Calcium 9.9 mg/dL (8.5-10.5); Carbon Dioxide 28 mmol/L (22-29); Chloride 99 mmol/L (98-107); Globulin 3.1 g/dL (1.3-4.6); Glomerular Filtration Rate 67.7 mL/min (90-130); Glucose 86 mg/dL (65-115); Osmolality Calculated 284 mOsm/kg (285-295); Sodium 138 mmol/L (136-145); Total Bilirubin 0.3 mg/dL (0.15-1.2); Total Protein 7.7 g/dL (6.6-8.7)
[2024-10-25 09:21] LABS: Anion Gap 15.3 (5-19); Potassium 4.3 mmol/L (3.5-5.1)
--- NOTE | 2024-10-25 10:53 | P.ANESASSM_ITS ---
Pre-Anesthetic Assessment Height/Weight: Height 5 ft 2 in Preop Diagnosis: cystocele Operation Date: 10/30/24 08:00 Proposed Procedures p Anterior Repair Anterior Colporrhaphy 41920, 23558, N81.10, N39.46(Not Applicable) - Blaine Kenny MD s Sling Single Incision Midurethral Sling(Not Applicable) - Blaine Kenny MD Was Beta Mallorie taken within 24 hours: N/A Was Clonidine taken within 24 hours: N/A Social No alcohol and No tobacco Exam alert, oriented x 3, clear to auscultation bilaterally and regular rate & rhythm Airway Submandibular: within normal limits Cervical ROM: within normal limits Mallampati: Class II Dentition: full Anesthetic Plan ASA status: 3 Anesthesia: General Other: No prior issues with anesthesia Plan to be n.p.o. at midnight prior to surgery History of GERD on Protonix Chronic migraines, takes Excedrin History of Raynaud's Prior gastric sleeve in 2018, lost over 100 pounds which relieved her GRAYSON Labs reviewed 10/25/2024 and acceptable for procedure METs greater than 4 Plan for general anesthesia Medications/Allergies Home Medications Medication Instructions Recorded Confirmed Last Taken Type guwvkpd-htvjkcoqghvam-oxierwug 250 2 tab PO Q6H PRN Migraine Headache 11/07/23 10/25/24 11/06/23 History mg-250 mg-65 mg tablet (Excedrin Migraine) tizanidine 2 mg tablet 4 mg PO TID PRN Muscle Spasm 11/07/23 10/25/24 07/08/24 History pantoprazole 20 mg tablet,delayed 20 mg PO QAM #90 tabs 06/22/24 10/25/24 10/25/24 Rx release hydrocortisone 2.5 % topical cream 1 applic topical BID PRN skin 07/20/24 10/25/24 Unknown Rx irritation #30 grams oxybutynin chloride 5 mg 5 mg PO DAILY #90 tabs 07/23/24 10/25/24 10/25/24 Rx tablet,extended release 24 hr fluoxetine 40 mg capsule 40 mg PO BID #60 caps 08/30/24 10/25/24 10/25/24 Rx upadacitinib 15 mg tablet,extended 15 mg PO DAILY 10/22/24 10/25/24 10/18/24 History release 24 hr (Rinvoq) Allergies Allergy/AdvReac Type Severity Reaction Status Date / Time morphine Allergy Intermediate ADR-Cramping Verified 10/25/24 07:55 of the Muscles [facility] Anesthesia Medical History Nystagmus Psychiatric care Tubular adenoma of colon Psoriatic arthritis Bloating MARYJO positive Decreased GFR Gastritis Hilar lymphadenopathy Frequent falls Shortness of breath Costochondritis Chest pain Surgical History Hx of colonoscopy 11/04/22 Status post laparoscopic sleeve gastrectomy H/O laparoscopy Hx of laparoscopic partial gastrectomy Hx of cholecystectomy Hx of oophorectomy Hx of hysterectomy History of esophagogastroduodenoscopy (EGD) (~10/2019) Family History Denies family history of Anesthesia complication Bleeding disorder Social History Smoking and tobacco/nicotine status: never used tobacco/nicotine Quit status (tobacco/nicotine): has quit using Year quit tobacco: 2015 - .025PPD x15yrs Second hand smoke exposure: No Alcohol intake: current Alcohol intake frequency: few times a month Substance/Drug Use: never Lives independently: Yes Household members: spouse Marital status: Highest education level completed: High School Graduate service: No Current occupational status: employed Current occupation: [employer] Current occupational exposures/hazards: No Pets and animals: Yes Sexually active: Yes Do you think of yourself as: Straight/Heterosexual Current gender identity: Female Sarah/Pentecostal: Quaker Data Anesthesia 10/25/24 08:40 10/25/24 08:40 Short CBC 10/25/24 Range/Units 08:40 WBC 6.40 (3.29-11.43) 10^3/uL Hgb 13.70 (11.27-16.99) g/dL Hct 41.1 (36-47) % MCV 93.0 (85-98) fl Plt Count 261 (157-399) 10^3/cmm Neut % (Auto) 71.8 % Neut # (Auto) 4.60 (1.8-7.7) 10^3/uL BMP 10/25/24 08:40 Sodium 138 Potassium 4.3 Chloride 99 Carbon Dioxide 28 BUN 10 Creatinine 0.9 Glucose 86 Calcium 9.9 Liver Function 10/25/24 Range/Units 08:40 Total Bilirubin 0.3 (0.15-1.2) mg/dL AST 18 (0-32) U/L ALT 16 (0-33) U/L Alkaline Phosphatase 65 (35-105) U/L Albumin 4.6 (3.5-5.2) g/dL Urine 10/25/24 Range/Units 08:50 Urine Color Yellow (Yellow) Urine Appearance Turbid A (CLEAR) Urine pH 8.0 A (5-7) Ur Specific [place] 1.016 (1.005-1.030) Urine Protein Negative (Negative) Urine Glucose (UA) Negative (Normal) Urine Ketones Negative (Negative) Urine Nitrate Negative (Negative) Urine Bilirubin Negative (Negative) Ur Leukocyte Esterase Negative (Negative) Urine RBC 0-2 (0-2) /hpf Urine WBC 0-5 (0-5) /hpf Cardiac Studies: 2 Echocardiogram Ultrasound 08/20/20
[2024-10-30] VITALS (19 sets, daily range): BP systolic 115–149; BP diastolic 68–95; PULSE 65–93; RESP 9–19; TEMP 36.1–36.8; O2SAT 91–99; BMI 27.7
[2024-10-30] MEDS: scopolamine 1 mg PATCH 1 PATCH TRANSDERMA (09:55)
[2024-10-30] MEDS: sodium chloride 0.9% 1,000 ML 30 ML IV (09:56)
--- NOTE | 2024-10-30 10:18 | P.ANESUD_ITS ---
Pre-Anesthetic Update Pre-Anesthetic Assessment: Date of Surgery/Procedure: 10/30/24 Preop Anay gnosis: CYstocele, mixed urinary incontinence Proposed Procedure: Operation Date: 10/30/24 10:55 Proposed Procedures p Anterior Repair Anterior Colporrhaphy 88467, 71487, N81.10, N39.46(Not Applicable) - Blaine Kenny MD s Sling Single Incision Midurethral Sling(Not Applicable) - Blaine Kenny MD Changes from Pre-Anesthetic Assessment: No changes since she was seen last week. Plan for general anesthetic Last Intake: Intake Last Liquid Date 10/29/24 Last Liquid Time 18:30 Last Solid Date 10/29/24 Last Solid Time 18:30 Vitals: Temperature 98.2 F 10/30/24 09:40 Temperature Source Temporal Artery S can 10/30/24 09:40 Pulse Rate 84 10/30/24 09:40 Pulse Rhythm Regular 10/30/24 09:40 Pulse Strength 3+ Normal 10/30/24 09:40 Respiratory Rate 18 10/30/24 09:40 Blood Pressure 137/95 10/30/24 09:40 Blood Pressure Kecia n 109 10/30/24 09:40 Pulse Oximetry 99 10/30/24 09:40 Oxygen Delivery Me thod Room Air 10/30/24 09:40 Cardiac Studies: Echocardiogram Ultrasound 08/20/20
[2024-10-30] MEDS: ceFAZolin 2,000 mg SDV 2000 MG IVP (11:35)
--- NOTE | 2024-10-30 11:47 | W.PM.OPSUD ---
Surgery/Procedure H&P Update DATE OF PROCEDURE: October 30, 2024 DATE H&P PERFORMED: 10/22/23 H&P UPDATE INFORMATION: I have reviewed H&P completed within last 30 days, I have examined patient prior to procedure and No changes to prior documentation PREOP DIAGNOSIS: CYstocele, mixed urinary incontinence PLANNED PROCEDURE: Operation Date: 10/30/24 10:55 Proposed Procedures p Anterior Repair Anterior Colporrhaphy 05629, 03628, N81.10, N39.46(Not Applicable) - Blaine Kenny MD s Sling Single Incision Midurethral Sling(Not Applicable) - Blaine Kenny MD
[2024-10-30] MEDS: lidocaine-epi 2% PF 1:200,000 20 mL SDV INJECTION (12:32)
--- NOTE | 2024-10-30 13:10 | P.OP_ITS ---
Operative Report Date of procedure: October 30, 2024 Pre-op diagnosis: Cystocele Stress urinary incontinence Post-op diagnosis: same Procedure done: Anterior colporrhaphy Mid urethral sling Cystoscopy Implants: Coloplast Altis mid urethral sling Surgeon: Blaine Kenny MD Estimated blood loss (mL): 75 IV fluids (mL): 600 Urine output (mL): 100 Complications: None Procedure: After obtaining informed consent, the patient was taken to the operating room and placed in the supine position, given general anesthesia, and prepped and draped in sterile fashion. The abdomen, vulva and vagina were prepped and draped in a sterile manner. A time out procedure was performed. The anterior vaginal mucosa beneath the midurethra was infiltrated with 2% lidocaine with epinephrine. A vertical midline incision was made beneath the midurethra, nearly 1.5 cm length. Careful submucosal dissection was performed bilaterally up to the interior portion of the inferior pubic ramus. The insertion of adductor longus tendon on the patient?s pubic ramus was identified as reference land luh. Palpated the notch along the internal edge of ischiopubic ramus where the adductor longus tendon and the inferior pubic ramus meet. The Altis single incision sling (SIS) was selected. Then the needle of the SIS inserted aiming at the location of this notch. One of the integrated self-fixating tips place onto the needle by sliding it over the end of the needle. The needle/sling assembly was inserted toward the location of identified reference notch making sure that the flat of the handle is perpendicular to the desired path. The needle was tracked along the posterior surface of the ischiopubic ramus until the midline luh on the mesh is approximately at the midline position under the urethra. The needle was removed and the same was repeated on the contralateral side until the appropriate sling tension under the urethra was achieved ensuring that the mesh lays flat. The needle was removed and vaginal incision was closed in a running interlocking fashion with 2-0 Vicryl. An anterior repair was then performed. The medial portion of the anterior vagi nal wall was grasped with two Allis clamps and the mucosa was infiltrated with the previous vasopressin solution. The Metzenbaum scissors were used to dissect and undermine a plane medially up to the point of reflexion anteriorly of the bladder. The vaginal mucosa was incised medially. This tissue was then grasped with Jenny clamps and dissected away with a combination of sharp and blunt dissection on both sides. A suture of 2-0 vicryl was then used to connect the lateral pubovesical connective tissue on either side together in a series of bites that was repeated in two layers. The excess vaginal mucosa was trimmed and the incision repaired with a locked suture of 0 vicryl. Then the Jefferson catheter was removed and cystoscope was inserted. The bladder was filled with sterile water. Complete evaluation of the bladder mucosa was performed noting no lacerations, dimpling, tears, bleeding of the mucosa or muscular layers. Both ureteral orifices were identified. Prompt excretion of urine from both ureteral orifices was noted. Cystoscope was withdrawn. The Jefferson catheter was replaced. Excellent hemostasis was obtained. A vaginal pack is placed overnight as postoperative support for the vaginal tissues after graft placement and closure of vaginal incisions. Sponge, lap, needle, and instrument counts were correct times three. The patient was taken to the recovery room, awake and in stable condition.
[2024-10-30] MEDS: fentaNYL 50 mcg/mL INJ 2mL IVP (13:42)
--- NOTE | 2024-10-30 14:12 | ANE.PACU2 ---
Inpatient post-anesthesia follow up: Airway intact: Yes Vital signs: Temperature 97.7 F Pulse Rate 87 Respiratory Rate 12 Blood Pressure 123/82 Pulse Oximetry 98 Oxygen Delivery Me thod Room Air Oxygen Flow Rate Fraction of Inspir ed Oxygen Hydration adequate: Yes Nausea and vomiting: No Pain level: 1 Mental status: Baseline
--- NOTE | 2024-10-30 14:28 | PC.NURSE ---
1422 - accepted into OB 11 with Hafsa RN at side - no distress noted to pt upon this nurse exiting room - BP 129/87 - pulse 75 - 99% temp 98.2
[2024-10-30] MEDS: ketorolac 30 mg/mL INJ IVP ×2 (15:07→21:06)
[2024-10-30] MEDS: dextrose 5%-lactated ringers 1,000 ML 125 ML IV (15:08)
[2024-10-30] MEDS: HYDROcodone-acetaminophen 5-325 mg Tablet PO ×2 (16:04→23:46)
[2024-10-30] MEDS: fluoxetine 20 mg Capsule 40 MG PO (19:52)
[2024-10-30] MEDS: docusate sodium 100 mg Capsule PO (19:53)
[2024-10-31 01:30] VITALS: BP 123/72; PULSE 69; TEMP 36.6; O2SAT 97
[2024-10-31] MEDS: ketorolac 30 mg/mL INJ IVP (04:29)
[2024-10-31 05:00] VITALS: BP 110/70; PULSE 71; TEMP 36.6
[2024-10-31 05:54] LABS: Hematocrit 32.8 % (36-47); Mean Corpuscular HGB Conc 32.6 g/dL (30-55); Mean Corpuscular Hemoglobin 31.2 pg (27-33); Mean Corpuscular Volume 95.6 fl (85-98); Mean Platelet Volume 10.2 fL (7.4-10.4); Platelet Count 192 10^3/cmm (157-399); Red Blood Count 3.43 10^6/uL (3.85-5.65); Red Cell Distribution Width 12.6 % (12.1-15.1); White Blood Count 7.67 10^3/uL (3.29-11.43)
[2024-10-31] MEDS: pantoprazole DR 40 mg Tablet PO (09:51)
[2024-10-31] MEDS: docusate sodium 100 mg Capsule PO (09:51)
[2024-10-31] MEDS: fluoxetine 20 mg Capsule 40 MG PO (09:57)
--- NOTE | 2024-10-31 10:14 | P.DS_ITS ---
Discharge Providers SERVER SERVICE ASSISTANT Date of Admission: 10/30/24 13:28 Date of Discharge: 10/31/24 Attending Provider at Admission: Blaine Kenny MD Attending Provider at Discharge: Blaine Kenny MD Primary Care Provider: BONNIE Floyd Reason for Visit 2 Reason for Visit: N39.46 Hospital Course Hospital Course Mrs. Spicer 43-year-old female with a history of cystocele and mixed urinary incontinence. Admitted for planned anterior colporrhaphy and mid urethral sling. The procedures were performed without complication. Overnight observation was uneventful. She is afebrile and hemodynamically stable postoperative day 1. PVR within normal limits. Ambulating without difficulty. Tolerating diet well. She was counseled regarding pelvic rest for 6 weeks (no sex, no tampons, no vaginal douches). Return to the emergency room if any fever, increased bleeding or pain. Physical Exam Narrative: GA: Alert and oriented ?3. HEENT: WNL. Heart: Regular rate and rhythm. Lungs: Clear to auscultation bilaterally. Abdomen: Bowel sounds present, nontender. VISION TEACHER: spotting bleeding. Extremities: No edema, no cyanosis, no calves pain. Urinary Catheter Management: [place]: Cath Placed During This Visit: yes Urinary Catheter Date of Insertion: 10/30/24 Urinary Catheter Time of Insertion: 12:23 History History History 4 Term 2 0 Miscarriages/Ectopic 2 Living Children 2 Discharge Data Studies Completed and Pending Laboratory Results WBC 7.67 10^3/uL (3.29-11.43) 10/31/24 05:00 RBC 3.43 10^6/uL (3.85-5.65) L 10/31/24 05:00 Hgb 10.70 g/dL (11.27-16.99) L 10/31/24 05:00 Hct 32.8 % (36-47) L 10/31/24 05:00 MCV 95.6 fl (85-98) 10/31/24 05:00 MCH 31.2 pg (27-33) 10/31/24 05:00 MCHC 32.6 g/dL (30-55) 10/31/24 05:00 RDW 12.6 % (12.1-15.1) 10/31/24 05:00 Plt Count 192 10^3/cmm (157-399) 10/31/24 05:00 MPV 10.2 fL (7.4-10.4) 10/31/24 05:00 Neut % (Auto) 71.8 % 10/25/24 08:40 Lymph % (Auto) 21.1 % 10/25/24 08:40 [place] % (Auto) 4.7 % 10/25/24 08:40 Eos % (Auto) 1.9 % 10/25/24 08:40 Baso % (Auto) 0.3 % 10/25/24 08:40 Neut # (Auto) 4.60 10^3/uL (1.8-7.7) 10/25/24 08:40 Lymph # (Auto) 1.4 10^3/uL (0.8-4.8) 10/25/24 08:40 Bond # (Auto) 0.3 10^3/uL (0.2-0.9) 10/25/24 08:40 Eos # (Auto) 0.1 10^3/uL (0.0-0.8) 10/25/24 08:40 Baso # (Auto) 0.0 10^3/uL (0.0-0.1) 10/25/24 08:40 Nucleated RBC % (auto) 0 % 10/25/24 08:40 Nucleated RBCs # 0.0 /100WBC 10/25/24 08:40 Sodium 138 mmol/L (136-145) 10/25/24 08:40 Potassium 4.3 mmol/L (3.5-5.1) 10/25/24 08:40 Chloride 99 mmol/L (98-107) 10/25/24 08:40 Carbon Dioxide 28 mmol/L (22-29) 10/25/24 08:40 Anion Gap 15.3 (5-19) 10/25/24 08:40 BUN 10 mg/dL (6-20) 10/25/24 08:40 Creatinine 0.9 mg/dL (0.5-0.9) 10/25/24 08:40 GFR Calculation 67.7 mL/min (90-130) L 10/25/24 08:40 Glucose 86 mg/dL (65-115) 10/25/24 08:40 Calculated Osmolality 284 mOsm/kg (285-295) L 10/25/24 08:40 Calcium 9.9 mg/dL (8.5-10.5) 10/25/24 08:40 Total Bilirubin 0.3 mg/dL (0.15-1.2) 10/25/24 08:40 AST 18 U/L (0-32) 10/25/24 08:40 ALT 16 U/L (0-33) 10/25/24 08:40 Alkaline Phosphatase 65 U/L (35-105) 10/25/24 08:40 Total Protein 7.7 g/dL (6.6-8.7) 10/25/24 08:40 Albumin 4.6 g/dL (3.5-5.2) 10/25/24 08:40 Globulin 3.1 g/dL (1.3-4.6) 10/25/24 08:40 Urine Color Yellow (Yellow) 10/25/24 08:50 Urine Appearance Turbid (CLEAR) A 10/25/24 08:50 Urine pH 8.0 (5-7) A 10/25/24 08:50 Ur Specific [place] 1.016 (1.005-1.030) 10/25/24 08:50 Urine Protein Negative (Negative) 10/25/24 08:50 Urine Glucose (UA) Negative (Normal) 10/25/24 08:50 Urine Ketones Negative (Negative) 10/25/24 08:50 Urine Blood Negative (Negative) 10/25/24 08:50 Urine Nitrate Negative (Negative) 10/25/24 08:50 Urine Bilirubin Negative (Negative) 10/25/24 08:50 Urine Urobilinogen 0.2 mg/dL (Negative) 10/25/24 08:50 Ur Leukocyte Esterase Negative (Negative) 10/25/24 08:50 Urine RBC 0-2 /hpf (0-2) 10/25/24 08:50 Urine WBC 0-5 /hpf (0-5) 10/25/24 08:50 Ur Squamous Epith Cells 0-5 /hpf (0-5) 10/25/24 08:50 Amorphous Sediment Not Reportable 10/25/24 08:50 Urine Bacteria None seen /hpf (NONE) 10/25/24 08:50 Hyaline Casts 0-4 /lpf H 10/25/24 08:50 Blood Type A Positive 10/30/24 09:45 Rho(D) Type Rh positive 10/30/24 09:45 Antibody Screen Negative 10/30/24 09:45 Vitals Last Vital Signs Temp 97.8 F 10/31/24 05:00 Pulse 71 10/31/24 05:00 Resp 16 10/30/24 19:30 BP 110/70 10/31/24 05:00 Pulse Ox 97 10/31/24 01:30 O2 Del Method Room Air 10/31/24 01:30 Results Labs OB ([facility]): Blood Type A Positive 10/30/24 Antibody Screen Negative 10/30/24 Hct 32.8 % (36-47) L 10/31/24 Hgb 10.70 g/dL (11.27-16.99) L 10/31/24 Rho(D) Type Rh positive 10/30/24 Plt Count 192 10^3/cmm (157-399) 10/31/24 TSH 1.51 uIU/mL (0.27-4.20) 01/16/24 Free T4 1.14 ng/dL (0.82-1.77) 01/16/24 HCG, Qual Negative (Negative) 08/16/23 Discharge Plan Discharge Patient Disposition: Home Condition: Stable Prescriptions: New acetaminophen 325 mg capsule 325 mg PO Q4H PRN (Reason: fever or pain) Qty: 60 0RF ibuprofen 800 mg tablet 800 mg PO TID PRN (Reason: pain) Qty: 60 0RF Continued oxybutynin chloride 5 mg tablet extended release 24hr 5 mg PO DAILY Qty: 90 3RF Rinvoq 15 mg tablet extended release 24 hr 15 mg PO DAILY pantoprazole 20 mg tablet,delayed release (DR/EC) 20 mg PO QAM Qty: 90 0RF fluoxetine 40 mg capsule 40 mg PO BID Qty: 60 1RF hydrocortisone 2.5 % cream 1 applic topical BID PRN (Reason: skin irritation) Qty: 30 1RF tizanidine 2 mg tablet 4 mg PO TID PRN (Reason: Muscle Spasm) Excedrin Migraine 250-250-65 mg Tablet 2 tab PO Q6H PRN (Reason: Migraine Headache) Discharge Orders: Discharge Order (Routine); Ordered 10/31/24 Ordered By: Blaine Kenny Referrals: Blaine Kenny MD [Physician] - 12/10/24 3:00 pm Smitha Hickman APN, CALVIN [Nurse Practitioner] - 11/14/24 1:30 pm Discharge Diet: Usual diet Discharge Activity: Limit activity as instructed Patient Instructions: Urinary Bladder Suspension (DC), Acute Wound Care (DC), Opioid Safety (DC), Bladder Sling for Women (GEN), Anterior Vaginal Repair (DC), OB Discharge Report, OB Food/Drug Interaction Guide, Opioid Safety, Post Anesthesia Care Activity Restrictions/Additional Instructions: 1. Please call [facility] on next working day to make your post-operative appointment in 2 weeks. 2. Please stay home until you come back to the clinic on first post- hospatilization check up. 3. Please follow instructions on your medications CAREFULLY. 4. If you have abdominal incision, do not cover it unless dressing is necessary because of drainage. OK to shower, but avoid bath. Leave steri-strips until they fall off. If they are still on one week after surgery, you may remove them. 5. If you had vaginal surgery or vaginal repair, Dr. Kenny may instruct you to take SITZ bath. 6. Yellow, blood tinged odorous vaginal discharge is usually normal after hysterectomy or vaginal surgeries. 7. No SEXUAL INTERCOURSE, tampons, or douches until you are completely released from the post-operative care. 8. Avoid constipation by eating right and maybe using some Metamucil or Milk of Magnesia. 9. All prescription refills are given during the working hours. Please do no wait till it runs out. Call the clinic at [phone] before your medication runs out. The clinic will get in touch with your doctor to prescribe medications if necessary. 10. Please remain within 40 mile radius from our hospital because emergencies do happen now and then during the post-operative period. 11. If you have stairs at home, take one step at a time slowly and minimize the number of trips. It helps to stay in one floor for the next few days. No lifting except what you can lift by one hand until you are released from the post-operative care. 12. Driving is discouraged until you are well healed. It may be 3-4 weeks before you feel strong enough to drive. You should be able to turn and look through the rear window without pain and you should be able to push the brake pedal very hard without pain before you drive. No fast rules, but SAFETY should be your primary concern. DO NOT drive if you are on sedating medications such as narcotics. 13. Call the clinic (during working hours) to make urgent appointment or go to the Emergency room, if any of the following occurs: i. Vaginal bleeding becomes heavy, more than a period. ii. Incision becomes red and sore, or drains pus. iii. Your TEMPERATURE is over 100.4F or you have chill. iv. IV site becomes red and swollen (a little ``knot?? is usually OK) v. Persistent nausea and vomiting vi. Persistent constipation or diarrhea vii. Rash or allergic reaction to medications. Discharge Attestations SERVER SERVICE ASSISTANT Time Spent in Discharge Care*: greater than 30 min Coding Level of Care Code Acute Code for Chg Mary
[2024-10-31 10:25] VITALS: BP 115/74; PULSE 77; RESP 16; TEMP 37; O2SAT 99
[2024-10-31] MEDS: oxybutynin chloride XL 5 MG TABLET PO (10:39)
== END 2024-10-31 10:45 | disposition home or self-care (01) ==
LOC: OBGYN 13:31
PROVIDERS: Admitting Provider Obstetrics & Gynecology; PCP Nurse Practitioner Family; Visit Provider Obstetrics & Gynecology
PROC: 0JQC0ZZ Repair Pelvic Region Subcutaneous Tissue and Fascia, Open Approach (ICD-10-PCS; CPT 57240; principal; 2024-10-30 10:55)
PROC: (CPT 57288; 2024-10-30 10:55)
PROC: 0TJB8ZZ Inspection of Bladder, Via Natural or Artificial Opening Endoscopic (ICD-10-PCS; CPT 52000; 2024-10-30 10:55)
DX: N39.3 Stress incontinence (female) (male) (principal); N81.10 Cystocele, unspecified; K21.9 Gastro-esophageal reflux disease without esophagitis; Z98.84 Bariatric surgery status; Z87.891 Personal history of nicotine dependence
CPT/HCPCS: 57240; 57288; 36415; 51798; 80053; 81001; 85025; 85027; 86850; 86900; 96374; 96376; C1713; G0378; J0690; J1200; J1885; J2250; J2704; J3010; J7030; J7121

== ENCOUNTER 2024-12-12 11:14 | Emergency (ER) | payer BC, SELFPAY ==
--- NOTE | 2024-12-12 11:17 | ECG_ITS ---
[facility] Date: 2024-12-12 Pat Name: Linda Spicer Department: Room: Gender: Female Nutrition Teacher: : 1980 Requested By: Nancy Taylor Order Number: [id number] Andino MD: Chase Arboleda M.D. Measurements Intervals [place] Rate: 73 P: 14 ND: 131 QRS: 24 QRSD: 81 T: 24 QT: 359 QTc: 396 Interpretive Statements SINUS RHYTHM LOW QRS VOLTAGE IN PRECORDIAL LEADS [QRS DEFLECTION < 1.0 mV IN CHEST LEADS] Compared to ECG 02/08/2024 12:06:55 Low QRS voltage now present Electronically Signed On 12-15-2024 18:08:45 ELEVATOR ERECTOR HELPER by Chase Arboleda M.D. [id number]
[2024-12-12 11:18] VITALS: BP 151/88; PULSE 88; RESP 16; TEMP 36.8; O2SAT 98; BMI 27.8
--- NOTE | 2024-12-12 11:19 | XR_ITS ---
WS: [id number] XR chest 1V portable [id number] REASON FOR EXAM: Chest pain FINDINGS: The chest is unchanged compared to 02/08/2024. The heart and mediastinum are within normal limits. Calcified granulomatous disease in both hemithoraces. No acute pulmonary parenchymal or pleural abnormality. Bony thorax is intact without significant abnormality. XR/XR chest 1V portable [id number] IMPRESSION: Stable chest without acute abnormality.
--- NOTE | 2024-12-12 11:39 | ED_ITS ---
HPI - Chest Pain 2 General: Chief Complaint: Chest Pain Stated Complaint: chest pain through left arm, started tuesday Time Seen by Provider: 12/12/24 11:19 History of Present Illness: There is a 44-year-old female with a history of MARYJO positive autoimmune disease but no other health problems who presents to the emergency room with chest pain. She has had recurrent episodes. She had 1 on Tuesday where it was off and on all day. She said then Tuesday she was very tired and slept most of the day. The next couple of days she felt better and then today she started having pain on her way into town about an hour ago. She has left chest pain that is a pressure. It goes into her back and into her left shoulder. No cardiac history. Non-smoker. No cough. No lower extremity swelling. No abdominal pain. No nausea or vomiting. Related Data Home Medications ?Medication ?Instructions ?Recorded ?Confirmed upadacitinib 15 mg tablet,extended 15 mg PO DAILY 10/1012/12/24 release 24 hr (Rinvoq) Previous Rx's ?Medication ?Instructions ?Recorded oxybutynin chloride 5 mg 5 mg PO DAILY #90 tabs 07/23 tablet,extended release 24 hr fluoxetine 40 mg capsule 40 mg PO BID #60 caps ibuprofen 800 mg tablet 800 mg PO TID PRN pain #60 t abs 10/31/24 pantoprazole 20 mg tablet,delayed See Rx Instructions .Route 11/09/24 release .COMPLEX #90 tabs estradiol 0.01% (0.1 mg/gram) 1 g vaginal .twice weekl y #42.5 11/23/24 vaginal cream grams Allergies Allergy/AdvReac Type Severity Reaction Status Date / Time morphine Allergy Intermediate ADR-Cramping Verified 12/10/24 14:50 of the Muscles Review of Systems 2 Narrative: Constitutional symptoms: Negative except as documented in HPI. Skin symptoms: Negative except as documented in HPI. Eye symptoms: Negative except as documented in HPI. ENMT symptoms: Negative except as documented in HPI. Respiratory symptoms: Negative except as documented in HPI. Cardiovascular symptoms: Negative except as documented in HPI. Gastrointestinal symptoms: Negative except as documented in HPI. Genitourinary symptoms: Negative except as documented in HPI. Musculoskeletal symptoms: Negative except as documented in HPI. Neurologic symptoms: Negative except as documented in HPI. Psychiatric symptoms: Negative except as documented in HPI. Endocrine symptoms: Negative except as documented in HPI. PFSH ED 2 PFSH: Medical History Nystagmus Tubular adenoma of colon Psoriatic arthritis Bloating MARYJO positive Decreased GFR Gastritis Hilar lymphadenopathy Frequent falls Shortness of breath Costochondritis Chest pain Surgical History History of anterior colporrhaphy (~10/30/24) Mid urethral sling Cystoscopy Hx of colonoscopy 11/04/22 Status post laparoscopic sleeve gastrectomy H/O laparoscopy Hx of laparoscopic partial gastrectomy Hx of cholecystectomy Hx of oophorectomy Hx of hysterectomy History of esophagogastroduodenoscopy (EGD) (~10/2019) Family History Denies family history of Anesthesia complication Bleeding disorder Social History Smoking and tobacco/nicotine status: former use of tobacco/nicotine Quit status (tobacco/nicotine): has quit using Year quit tobacco: 2014 - .025PPD x15yrs Second hand smoke exposure: No Alcohol intake: current Alcohol intake frequency: few times a month Substance/Drug Use: never Lives independently: Yes Household members: spouse Marital status: Highest education level completed: High School Graduate service: No Current occupational status: employed Current occupation: [employer] Current occupational exposures/hazards: No Pets and animals: Yes Sexually active: Yes Do you think of yourself as: Straight/Heterosexual Current gender identity: Female Sarah/Holiness: Gnosticist Physical Exam 2 Narrative: EXAM NARRATIVE: General: Alert, no acute distress. Skin: Warm, dry. Head: Normocephalic, atraumatic. Neck: Supple, trachea midline. Eye: Extraocular movements are intact. Ears, nose, mouth and throat: mucosa moist. Cardiovascular: Regular, Normal peripheral perfusion. Respiratory: Lungs are clear to auscultation, respirations are non-labored, breath sounds are equal, Symmetrical chest wall expansion. Gastrointestinal: Soft, Nontender, Non distended Musculoskeletal: Normal ROM, no deformity. Neurological: Alert and oriented, No focal neurological deficit observed. Psychiatric: Cooperative, appropriate mood & affect. Course 2 Vital Signs: Vital signs: Vital Signs Temperature 98.2 F 12/12/24 11:18 Pulse Rate 59 L 12/12/24 13:00 Respiratory Rate 16 12/12/24 11:18 Blood Pressure 133/93 12/12/24 13:00 Pulse Oximetry 99 12/12/24 13:00 Oxygen Delivery Me thod Room Air 12/12/24 13:00 MDM - Chest Pain Medical Decision Making Differential diagnosis for patient with chest pain includes but is not limited to and based on the above HPI, review of systems and physical exam: Pneumonia. unstable angina. angina. Acute coronary syndrome / PR. Pulmonary embolism. Costochondritis / musculoskeletal. Pleurisy. Pericarditis. Esophageal spasm. Pancreatis. Cholecystitis. Orders placed to evaluate differential diagnosis based on the above differential, HPI and physical exam EKG: Time 1117. Rate 73. Normal sinus rhythm, No ST-T changes, no ectopy, normal MO & QRS intervals, This was reviewed and interpreted by myself the ER physician at 11:20 AM Chest x-ray: No acute process. No infiltrate. No pneumothorax. This was reviewed and interpreted by myself the emergency room physician. I also reviewed the radiology report. Lab Review: Laboratory results were reviewed and interpreted by myself the emergency room physician. No leukocytosis. No anemia. Serial troponins are negative. No renal failure. D-dimer is negative I reviewed the patient's medical record. Reexamination: Patient remained stable. No increased work of breathing. No altered mental status. No focal motor deficits. Assessment and plan: Noncardiac chest pain - Discharged home - Discussed plan with patient. Answered any questions. - Evaluation and treatment of this problem were appropriate in the emergency setting. Lab Data 12/12/24 11:35 12/12/24 11:35 Radiology Impressions Chest X-Ray 12/12/24 11:19 IMPRESSION: Stable chest without acute abnormality. Laboratory Results WBC 5.44 10^3/uL (3.29-11.43) 12/12/24 11:35 RBC 3.87 10^6/uL (3.85-5.65) 12/12/24 11:35 Hgb 12.10 g/dL (11.27-16.99) 12/12/24 11:35 Hct 36.8 % (36-47) 12/12/24 11:35 MCV 95.1 fl (85-98) 12/12/24 11:35 MCH 31.3 pg (27-33) 12/12/24 11:35 MCHC 32.9 g/dL (30-55) 12/12/24 11:35 RDW 12.3 % (12.1-15.1) 12/12/24 11:35 Plt Count 211 10^3/cmm (157-399) 12/12/24 11:35 MPV 9.6 fL (7.4-10.4) 12/12/24 11:35 Neut % (Auto) 64.1 % 12/12/24 11:35 Lymph % (Auto) 28.5 % 12/12/24 11:35 [place] % (Auto) 5.3 % 12/12/24 11:35 Eos % (Auto) 1.1 % 12/12/24 11:35 Baso % (Auto) 0.6 % 12/12/24 11:35 Neut # (Auto) 3.49 10^3/uL (1.8-7.7) 12/12/24 11:35 Lymph # (Auto) 1.6 10^3/uL (0.8-4.8) 12/12/24 11:35 [place] # (Auto) 0.3 10^3/uL (0.2-0.9) 12/12/24 11:35 Eos # (Auto) 0.1 10^3/uL (0.0-0.8) 12/12/24 11:35 Baso # (Auto) 0.0 10^3/uL (0.0-0.1) 12/12/24 11:35 Nucleated RBC % (auto) 0 % 12/12/24 11:35 Nucleated RBCs # 0.0 /100WBC 12/12/24 11:35 D-Dimer 0.47 ug/mLFEU (0-0.59) 12/12/24 11:35 Sodium 141 mmol/L (136-145) 12/12/24 11:35 Potassium 3.8 mmol/L (3.5-5.1) 12/12/24 11:35 Chloride 104 mmol/L (98-107) 12/12/24 11:35 Carbon Dioxide 25 mmol/L (22-29) 12/12/24 11:35 Anion Gap 15.8 (5-19) 12/12/24 11:35 BUN 10 mg/dL (6-20) 12/12/24 11:35 Creatinine 0.9 mg/dL (0.5-0.9) 12/12/24 11:35 GFR Calculation 67.7 mL/min (90-130) L 12/12/24 11:35 Glucose 95 mg/dL (65-115) 12/12/24 11:35 Calculated Osmolality 291 mOsm/kg (285-295) 12/12/24 11:35 Calcium 9.3 mg/dL (8.5-10.5) 12/12/24 11:35 Total Bilirubin 0.4 mg/dL (0.15-1.2) 12/12/24 11:35 AST 18 U/L (0-32) 12/12/24 11:35 ALT 17 U/L (0-33) 12/12/24 11:35 Alkaline Phosphatase 59 U/L (35-105) 12/12/24 11:35 Troponin T Baseline < 6 ng/L (0-10) 12/12/24 11:35 Troponin T 120 Minute 6.00 ng/L (0-10) 12/12/24 13:10 Delta Troponin T 0.69276 ABS# (0-10) 12/12/24 13:10 NT-Pro-B Natriuret Pep 41 pg/mL (0-125) 12/12/24 11:35 Total Protein 7.2 g/dL (6.6-8.7) 12/12/24 11:35 Albumin 4.5 g/dL (3.5-5.2) 12/12/24 11:35 Globulin 2.7 g/dL (1.3-4.6) 12/12/24 11:35 All radiology interpretation(s) finalized by discharge Discharge Plan Discharge Patient Disposition: Home Clinical Impression: Non-cardiac chest pain Condition: Stable Prescriptions: No Action estradiol 0.01 % (0.1 mg/gram) cream 1 g vaginal .twice weekly Qty: 42.5 3RF Rx Instructions: space out doses oxybutynin chloride 5 mg tablet extended release 24hr 5 mg PO DAILY Qty: 90 3RF Rinvoq 15 mg tablet extended release 24 hr 15 mg PO DAILY fluoxetine 40 mg capsule 40 mg PO BID Qty: 60 1RF pantoprazole 20 mg tablet,delayed release (DR/EC) See Rx Instructions .ROUTE .COMPLEX Qty: 90 0RF Dose Instruction: TAKE 1 TABLET BY MOUTH IN THE MORNING Rx Instructions: TAKE 1 TABLET BY MOUTH IN THE MORNING ibuprofen 800 mg tablet 800 mg PO TID PRN (Reason: pain) Qty: 60 0RF Discharge Orders: Discharge ED (Routine); Ordered 12/12/24 Ordered By: Nancy Husain Referrals: Aria Schwarz FNP [Primary Care Provider] - Discharge Diet: Usual diet Discharge Activity: Increase activity as tolerated Patient Instructions: Noncardiac Chest Pain (ED), Opioid Safety, Pain Management Activity Restrictions/Additional Instructions: Thank you for choosing [facility] for your healthcare needs today. Please realize this is an emergency room and that we are providing you with a medical screening exam and this may not be complete and all inclusive of all the testing and or work up that you may need to determine your ailment or severity of your illness. You have been screened and evaluated and felt safe for discharge. Health conditions do change or evolve sometimes and as such it is important that you follow up with your Primary Doctor to be re checked, 3-5 days is a general good time frame for follow up. You are always welcome to return to the ED for re assessment if your symptoms are worsening or you have new concerns Print Language: Icelandic Coding Level of Care Code ED Spring Repairer Helper Hand for Ricky Hernandez
--- NOTE | 2024-12-12 11:43 | ECG_ITS ---
[employer] [facility] Test Date: 2024-12-12 Pat Name: Linda Spicer Department: Room: Gender: Female Pan Shover: : 1980 Requested By: Nancy Taylor Order Number: [id number] MD: Chase Arboleda M.D. Measurements Intervals [place] Rate: 72 P: 7 VT: 135 QRS: 16 QRSD: 90 T: 8 QT: 377 QTc: 415 Interpretive Statements SINUS RHYTHM LOW QRS VOLTAGE IN PRECORDIAL LEADS [QRS DEFLECTION < 1.0 mV IN CHEST LEADS] Compared to ECG 12/12/2024 11:17:30 No significant changes Electronically Signed On 12-15-2024 19:41:56 VENDING MACHINE SERVICER by Chase Arboleda M.D. [email or web address] [id number]
[2024-12-12 11:45] VITALS: BP 139/94; PULSE 72; O2SAT 100
[2024-12-12 11:52] LABS: Basophils % 0.6 %; Eosinophils # 0.1 10^3/uL (0.0-0.8); Eosinophils % 1.1 %; Hematocrit 36.8 % (36-47); Lymphocytes # 1.6 10^3/uL (0.8-4.8); Lymphocytes % 28.5 %; Mean Corpuscular HGB Conc 32.9 g/dL (30-55); Mean Corpuscular Hemoglobin 31.3 pg (27-33); Mean Corpuscular Volume 95.1 fl (85-98); Mean Platelet Volume 9.6 fL (7.4-10.4); Monocytes # 0.3 10^3/uL (0.2-0.9); Monocytes % 5.3 %; Neutrophils # 3.49 10^3/uL (1.8-7.7); Neutrophils % 64.1 %; Nucleated Red Blood Cells % 0 %; Platelet Count 211 10^3/cmm (157-399); Red Blood Count 3.87 10^6/uL (3.85-5.65); Red Cell Distribution Width 12.3 % (12.1-15.1); White Blood Count 5.44 10^3/uL (3.29-11.43)
[2024-12-12 12:08] LABS: Troponin(5th) Baseline < 6 ng/L (0-10)
[2024-12-12 12:20] LABS: Alanine Aminotransferase 17 U/L (0-33); Albumin Level 4.5 g/dL (3.5-5.2); Alkaline Phosphatase 59 U/L (35-105); Anion Gap 15.8 (5-19); Aspartate Amino Transferase 18 U/L (0-32); Blood Urea Nitrogen 10 mg/dL (6-20); Calcium 9.3 mg/dL (8.5-10.5); Carbon Dioxide 25 mmol/L (22-29); Chloride 104 mmol/L (98-107); Creatinine Clr Calc Pharmacy 71.8256; Globulin 2.7 g/dL (1.3-4.6); Glomerular Filtration Rate 67.7 mL/min (90-130); Glucose 95 mg/dL (65-115); NT Pro B Type Natriuretic Pept 41 pg/mL (0-125); Osmolality Calculated 291 mOsm/kg (285-295); Potassium 3.8 mmol/L (3.5-5.1); Sodium 141 mmol/L (136-145); Total Bilirubin 0.4 mg/dL (0.15-1.2); Total Protein 7.2 g/dL (6.6-8.7)
[2024-12-12 12:21] VITALS: BP 134/79; PULSE 64; O2SAT 98
[2024-12-12 12:38] VITALS: PULSE 62; O2SAT 97
[2024-12-12 12:59] LABS: D Dimer 0.47 ug/mLFEU (0-0.59)
[2024-12-12 13:00] VITALS: BP 133/93; PULSE 59; O2SAT 99
--- NOTE | 2024-12-12 13:19 | ECG_ITS ---
[employer] Test Date: 2024-12-12 Pat Name: Linda Spicer Department: Room: Gender: Female Supervisor Statement Clerks: : 1980 Requested By: Nancy Taylor Order Number: [id number] Andino MD: Chase Arboleda M.D. Measurements Intervals [place] Rate: 64 P: 10 DC: 136 QRS: 25 QRSD: 86 T: 5 QT: 394 QTc: 408 Interpretive Statements SINUS RHYTHM LOW QRS VOLTAGE IN PRECORDIAL LEADS [QRS DEFLECTION < 1.0 mV IN CHEST LEADS] Compared to ECG 12/12/2024 11:43:29 No significant changes Electronically Signed On 12-15-2024 19:41:52 HYPERION DEVELOPER by Chase Arboleda M.D. [email or web address] [id number]
[2024-12-12 13:42] LABS: Troponin 5 2HR Delta 0.00001 ABS# (0-10)
[2024-12-12] MEDS: ibuprofen 600 mg Tablet PO (13:49)
[2024-12-12 13:53] VITALS: BP 144/94; PULSE 60; O2SAT 100
== END 2024-12-12 13:55 | disposition home or self-care (01) ==
PROVIDERS: Emergency Provider Emergency Medicine; PCP Nurse Practitioner Family
DX: R07.89 Other chest pain (principal); Z87.891 Personal history of nicotine dependence
CPT/HCPCS: 71045; 80053; 83880; 84484; 85025; 85378; 93005; 99285

== ENCOUNTER 2025-04-08 09:48 | Outpatient (CLI) | payer BC, SELFPAY ==
[2025-04-08 10:21] VITALS: BMI 28.0
--- NOTE | 2025-04-08 10:24 | ECG_ITS ---
[employer] Test Date: 2025-04-08 Pat Name: Linda Spicer Department: Room: Gender: Female Nurseryperson: : 1980 Requested By: Jovany Hinojosa Order Number: [id number] Andino MD: Chase Arboleda M.D. Interpretive Statements EXERCISE MIBI EXERCISE DATA: The patient was exercised by Jose protocol. Baseline heart rate was 79 beats per minute. Baseline blood pressure was 114/85 millimeters of mercury. Maximal predicted heart rate was 174 beats per minute. Maximum heart rate achieved was 163 which was 93% of the maximum predicted heart rate. Maximum blood pressure was 170/83 millimeters of mercury. Total exercise time was 8 minutes and 23 seconds. Maximum METs achieved was 10.2. The reason for ending the test was maximal effort achieved. The patient complained of shortness of breath during the stress test, which then resolved at the end of the test. ELECTROCARDIOGRAM: BASELINE: Showed sinus rhythm, normal axis, no significant ST-T changes at the baseline noted. [] EXERCISE: At the peak exercise level, [] No significant ST-T changes suggestive of ischemia noted. [] RECOVERY: During the recovery period, heart rate dropped appropriately. No significant ST-T changes in the recovery suggestive of ischemia noted. [] CONCLUSION: 1. Exercise capacity is good. 2. Heart rate response was appropriate. 3. Blood pressure response was appropriate 4. Symptoms not suggestive of ischemia. 5. Electrocardiogram portion of the stress test was not suggestive of ischemia. 6. Nuclear scan will be documented separately. Electronically Signed On 04-20-2025 13:06:51 CDT by Chase Arboleda M.D. [email or web address] [id number]
--- NOTE | 2025-04-08 10:24 | NMCV_ITS ---
NM malik perf SPECT r/s* [id number] Linda Spicer Age: 45 Gender: F : 1980 Exam Date: 04/08/2025 11:07 Ordering Phys: Jovany Hinojosa MD ([email or web address]) Technologist: KYM Michaud Exam Location: [facility] Indications: cp STRESS TEST Please see separate stress test report in [facility] for full findings IMAGE PROTOCOL Rest/Stress 1 Exercise Day Radiopharmaceutical Dose (mCi) Administration Site Administered by Rest: Tc-99m 10.9 IV KYM Michaud Sestamibi Stress:Tc-99m 32.8 IV KYM Michaud Sestamibi Rest: 08-Apr-2025 60 Discovery 630 Stress: 08-Apr-2025 30 Discovery 630 Radiopharmaceutical was injected at 88 % maximum heart rate. Images obtained in supine and prone position. SPECT RESULTS Technical Quality: Good Raw Data Analysis: Normal Image Corrections: No attenuation or motion correction applied Summed Stress Score: 0 Summed Rest Score: 1 Summed Difference Score: 0 PERFUSION FINDINGS SPECT images demonstrate homogeneous tracer distribution throughout the myocardium. FUNCTIONAL RESULTS (calculated via Gated SPECT) Stress Image LV EF (%): 76 Stress EDV (mL):58 TID: 0.74 Stress ESV (mL):14 FUNCTIONAL FINDINGS: There is normal left ventricular systolic function. IMPRESSIONS 1. Normal myocardial perfusion imaging with no evidence of ischemia. 2. LV systolic function is normal. Chase Arboleda MD (Electronically Signed) Final Date: 10 April 2025 12:04 S
[2025-04-08 11:58] VITALS: BP 133/64; PULSE 81
== END 2025-04-08 09:49 | disposition home or self-care (01) ==
LOC: CDL 09:51
PROVIDERS: PCP Nurse Practitioner Family; Visit Provider Internal Medicine Cardiovascular Disease
DX: R07.9 Chest pain, unspecified (principal); R06.02 Shortness of breath
CPT/HCPCS: 36415; 78452; 93017; A9500

== ENCOUNTER 2025-06-14 06:02 | Outpatient (CLI) | payer BC, SELFPAY ==
--- NOTE | 2025-06-14 06:15 | USCV_ITS ---
Linda Spicer Age: 45 Gender: F : 1980 Exam Date: 06/14/2025 06:19 Ordering Phys: Jovany Hinojosa MD ([email or web address]) Technologist: [place] [facility] [place]: cp sob BP: 117 / 74 HR: 65 Rhythm: Sinus Technical Quality: Adequate MEASUREMENTS (Male / Female) Normal Values 2D ECHO LV Diastolic Diameter PLAX 4.0 cm 4.2 - 5.9 / 3.9 - 5.3 cm IVS Diastolic Thickness 1.0 cm 0.6 - 1.0 / 0.6 - 0.9 cm IVS Systolic Thickness 1.8 cm LVPW Diastolic Thickness 1.1 cm 0.6 - 1.0 / 0.6 - 0.9 cm LVPW Systolic Thickness 1.7 cm LVOT Diameter 2.1 cm LV Ejection Fraction 2D Teich 66.5 % LV Ejection Fraction MOD 4C 62.9 % LV Ejection Fraction MOD 2C 65.5 % LV Ejection Fraction 2C AL 67.5 % LA Diameter 2.8 cm RA Systolic Volume 4C AL 47.1 ml RA Systolic Volume 4C MOD 46.0 ml LA Sys Volume AL 41.4 cm cubed LA Sys Volume Index AL 24.0 cm cubed/m squared Aorta at Sinotubular Diameter 2.9 cm IVC Diameter 1.4 cm M-MODE LA Ao Ratio MM 1.2 AV Cusp Separation MM 1.8 cm DOPPLER AV Peak Velocity 147.0 cm/s LVOT Peak Velocity 101.0 cm/s AV Area Cont Eq vti 2.5 cm squared AV Area Cont Eq pk 2.4 cm squared MV Peak Velocity 100.0 cm/s MV Area PHT 4.4 cm squared Mitral E to A Ratio 1.0 TV Peak Velocity 194.0 cm/s TR Peak Velocity 240.0 cm/s TR Peak Gradient 23.0 mmHg TV Peak E Velocity 112.0 cm/s FINDINGS Left Ventricle Normal left ventricular size, systolic function and wall thickness, with no regional wall motion abnormalities. Left ventricular ejection fraction is estimated at 60 %. Grade I/IV diastolic dysfunction (abnormal relaxation filling pattern), normal to mildly elevated filling pressures. Right Ventricle The right ventricle is normal in size and function. Right Atrium The right atrium is normal in size. Left Atrium The left atrium is normal in size. Mitral Valve Structurally normal mitral valve without significant stenosis or prolapse. There is no mitral regurgitation. Aortic Valve Mild aortic valve calcification. No aortic valve stenosis. Tricuspid Valve Moqq-ah-jrlywvfo tricuspid valve regurgitation. Pulmonic Valve Structurally normal pulmonic valve without significant stenosis. There is no pulmonic regurgitation. Pericardium Normal pericardium without effusion. Aorta Normal ascending aorta dimension. IVC The inferior vena cava appears normal. CONCLUSIONS Normal left ventricular size, systolic function and wall thickness, with no regional wall motion abnormalities. Left ventricular ejection fraction is estimated at 60 %. Grade I/IV diastolic dysfunction (abnormal relaxation filling pattern), normal to mildly elevated filling pressures. Eomd-xi-iikxinps tricuspid valve regurgitation. There is no pericardial effusion. Right atrial pressure is around 5 mm of mercury. Jovany Hinojosa MD (Electronically Signed) Final Date: 14 June 2025 11:39 S
== END 2025-06-14 06:03 | disposition home or self-care (01) ==
LOC: RAD 06:02
PROVIDERS: PCP Nurse Practitioner Family; Visit Provider Internal Medicine Cardiovascular Disease
DX: R07.9 Chest pain, unspecified (principal); R06.02 Shortness of breath; I50.30 Unspecified diastolic (congestive) heart failure; I08.2 Rheumatic disorders of both aortic and tricuspid valves
CPT/HCPCS: 93306

== ENCOUNTER → 2025-08-27 14:14 | Outpatient (BNVA) | payer BC, SELFPAY | PROVIDERS: PCP Nurse Practitioner Family; Visit Provider Orthopaedic Surgery | DX: M48.062 Spinal stenosis, lumbar region with neurogenic claudication (principal); M79.604 Pain in right leg; Z47.89 Encounter for other orthopedic aftercare | CPT/HCPCS: 72100 ==

== ENCOUNTER 2025-09-03 09:52 | Outpatient (CLI) | payer BC, SELFPAY ==
--- NOTE | 2025-09-03 10:00 | XRR_ITS ---
PROCEDURE INFORMATION: Exam: XR Thoracic Spine Exam date and time: 09/03/2025 10:10 AM Age: 45 years old Clinical indication: Pain in thoracic spine; Prior surgery; Surgery date: 6+ months; Surgery type: Lumbar decompression; Several years pain just below both scapula that wraps around anteriorly & radiates down arm. ; Additional info: M54.9 - dorsalgia, unspecified TECHNIQUE: Imaging protocol: Radiologic exam of the thoracic spine. Views: 3 views. COMPARISON: MR thoracic spin wo con* [id number] 10/19/2019 8:51 AM FINDINGS: Bones/joints: No acute fracture or dislocation. Thoracic vertebral bodies demonstrate a normal height. Vertebral alignment is anatomic. Soft tissues: Cholecystectomy clips are seen in the right upper quadrant. XR/XR thoracic spine 3V* [id number] IMPRESSION: No acute fracture or traumatic subluxation.
== END 2025-09-03 09:53 | disposition home or self-care (01) ==
PROVIDERS: PCP Nurse Practitioner Family; Visit Provider Nurse Practitioner Family
DX: M54.9 Dorsalgia, unspecified (principal); Z90.49 Acquired absence of other specified parts of digestive tract
CPT/HCPCS: 72072

== ENCOUNTER 2025-09-06 09:33 | Outpatient (CLI) | payer BC, SELFPAY ==
--- NOTE | 2025-09-06 09:30 | MRR_ITS ---
PROCEDURE INFORMATION: Exam: MR Lumbar Spine Without Contrast Exam date and time: 09/06/2025 9:47 AM Age: 45 years old Clinical indication: Low back pain; Prior surgery; Surgery date: 6+ months; Surgery type: Disc repair x 1 year; Chronic back pain x 10 years, RT arm/leg pain/numbness, no known injury TECHNIQUE: Imaging protocol: Magnetic resonance imaging of the lumbar spine without contrast. COMPARISON: MR lumbar spine wo/w con [id number] 06/19/2024 12:16 PM FINDINGS: Bones/joints: Vertebral marrow signal is maintained. There are no suspicious osseous lesions. Vertebral bodies demonstrate a normal height. Vertebral alignment is anatomic. There is mild T2 and T1 hyperintense signal at the L3-L4 endplates compatible with Modic type 2 endplate changes. There is anterior marginal osteophytosis at L3-L5. Disc spaces: There is mild disc desiccation at L4-L5 and L5-S1. Disc space heights: There is normal disc space heights. Spinal cord: Visualized cord, conus medullaris and cauda equina are unremarkable without compression. Conus medullaris is located at the L1 level and is normal in signal intensity. L1-L2: No significant disc bulge or herniation. No severe spinal canal stenosis. No significant neural foraminal narrowing. L2-L3: No significant disc bulge or herniation. No severe spinal canal stenosis. No significant neural foraminal narrowing. L3-L4: No significant disc bulge or herniation. No severe spinal canal stenosis. No significant neural foraminal narrowing. L4-L5: No significant disc bulge or herniation. No severe spinal canal stenosis. No significant neural foraminal narrowing. There is mild bilateral facet arthrosis. L5-S1: No significant disc bulge or herniation. No severe spinal canal stenosis. No significant neural foraminal narrowing. There is mild bilateral facet arthrosis. Soft tissues: Unremarkable. MR/MR lumbar spine wo con* [id number] IMPRESSION: 1. Mild disc desiccation at L4-L5 and L5-S1. 2. Mild Modic type 2 endplate changes at L3-L4. 3. Mild degenerative spondylosis as above. 4. No spinal canal or neural foraminal stenosis.
== END 2025-09-06 09:34 | disposition home or self-care (01) ==
LOC: RAD 09:34
PROVIDERS: PCP Nurse Practitioner Family; Visit Provider Orthopaedic Surgery
DX: M48.062 Spinal stenosis, lumbar region with neurogenic claudication (principal); M51.362 Other intervertebral disc degeneration, lumbar region with discogenic back pain and lower extremity pain; M25.78 Osteophyte, vertebrae; M47.26 Other spondylosis with radiculopathy, lumbar region
CPT/HCPCS: 72148

== ENCOUNTER → 2025-09-12 15:17 | Outpatient (BNVA) | payer BC, SELFPAY | PROVIDERS: PCP Nurse Practitioner Family; Visit Provider Orthopaedic Surgery | DX: Z01.818 Encounter for other preprocedural examination (principal); M48.061 Spinal stenosis, lumbar region without neurogenic claudication; Z87.891 Personal history of nicotine dependence; R20.0 Anesthesia of skin | CPT/HCPCS: 36415; 80053; 81001; 85025 ==

== ENCOUNTER 2025-09-20 08:45 | Day surgery (SDC) | payer BC, SELFPAY ==
[2025-09-20] VITALS (15 sets, daily range): BP systolic 101–158; BP diastolic 59–97; PULSE 66–95; RESP 11–18; TEMP 36.2–36.4; O2SAT 93–100; BMI 27.8
--- NOTE | 2025-09-20 09:15 | ANES.PREANE2 ---
Pre-Anesthetic Assessment Height/Weight: Height 5 ft 2 in Weight 152 lb Temp Pulse Resp BP Pulse Ox O2 Del Method 97.5 F L 82 18 158/97 100 Room Air 09/20/25 09:03 09/20/25 09:03 09/20/25 09:03 09/20/25 09:03 09/20/25 09:03 09/20/25 09:03 Preop Diagnosis: Lumbar stenosis with neurogenic claudication Operation Date: 09/20/25 10:30 Proposed Procedures p Lumbar Spine Decompression(Not Applicable) - Jd Sandoval, DO Was Beta Mallorie taken within 24 hours: N/A Was Clonidine taken within 24 hours: N/A Last intake: Intake Last Liquid Date 09/19/25 Last Liquid Time 19:00 Last Solid Date 09/19/25 Last Solid Time 19:00 Social No alcohol and No tobacco Exam alert, oriented x 3, clear to auscultation bilaterally and regular rate & rhythm Airway Submandibular: within normal limits Cervical ROM: within normal limits Mallampati: Class II Dentition: full Anesthetic Plan ASA status: 3 Anesthesia: General Other: No prior issues with anesthesia NPO since yesterday evening History of GERD on Protonix Chronic migraines, takes Excedrin History of Raynaud's Prior gastric sleeve in 2018, lost over 100 pounds which relieved her GRAYSON Labs reviewed 09/12/25 and acceptable for procedure Patient states that since she was last with that she started having lower extremity swelling. Negative stress test in March Echo 06/14/2025 showing EF of 60% with no RWMA Mild diastolic dysfunction which thread cutter tender told her might be leading to her leg swelling METs greater than 4 Plan for general anesthesia Medications/Allergies Home Medications ?Medication ?Instructions ?Recorded ?Confirmed ?Last Taken ?Type upadacitinib 15 mg tablet,extended 15 mg PO DAILY 10/22/24 09/19/25 09/15/25 History release 24 hr (Rinvoq) isosorbide mononitrate 30 mg 30 mg PO DAILY #90 tabs 02/12/25 09/19/25 09/19/25 Rx tablet,extended release 24 hr nitroglycerin 0.4 mg sublingual 0.4 mg sublingual Q5M PRN chest 02/12/25 09/19/25 Unknown Rx tablet pain #25 tabs fluoxetine 20 mg capsule 20 mg PO DAILY #90 caps 07/19/25 09/19/25 09/19/25 Rx spironolactone 25 mg tablet 25 mg PO DAILY #90 tabs 08/06/25 09/19/25 09/19/25 Rx (Aldactone) pregabalin 75 mg capsule 75 mg PO BID 09/17/25 09/19/25 09/19/25 History pantoprazole 20 mg tablet,delayed 20 mg PO DAILY 09/19/25 09/19/25 09/19/25 History release Allergies Allergy/AdvReac Type Severity Reaction Status Date / Time morphine Allergy Intermediate ADR-Cramping Verified 09/19/25 09:39 of the [facility] [place] Anesthesia Medical History Nystagmus Tubular adenoma of colon Psoriatic arthritis Bloating MARYJO positive Decreased GFR Gastritis Hilar lymphadenopathy Frequent falls Shortness of breath Costochondritis Chest pain Surgical History History of anterior colporrhaphy (~10/30/24) Mid urethral sling Cystoscopy Hx of colonoscopy 11/04/22 Status post laparoscopic sleeve gastrectomy H/O laparoscopy Hx of laparoscopic partial gastrectomy Hx of cholecystectomy Hx of oophorectomy Hx of hysterectomy History of esophagogastroduodenoscopy (EGD) (~10/2019) Family History Denies family history of Anesthesia complication Bleeding disorder Social History Smoking and tobacco/nicotine status: light tobacco/nicotine user (cannibis, currently not tobacco) Quit status (tobacco/nicotine): has quit using Year quit tobacco: 2015 - .025PPD x15yrs Second hand smoke exposure: No Alcohol intake: current Alcohol intake frequency: few times a month Substance/Drug Use: never Lives independently: Yes Household members: spouse Marital status: Highest education level completed: High School Graduate service: No Current occupational status: employed Current occupation: [employer] Current occupational exposures/hazards: No Pets and animals: Yes Sexually active: Yes Do you think of yourself as: Straight/Heterosexual Current gender identity: Female 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
--- NOTE | 2025-09-20 09:15 | W.PM.OPSUD ---
Surgery/Procedure H&P Update DATE OF PROCEDURE: September 20, 2025 DATE H&P PERFORMED: 09/12/25 H&P UPDATE INFORMATION: I have reviewed H&P completed within last 30 days, I have examined patient prior to procedure and No changes to prior documentation PREOP DIAGNOSIS: Lumbar stenosis with neurogenic claudication PLANNED PROCEDURE: Operation Date: 09/20/25 10:30 Proposed Procedures p Lumbar Spine Decompression(Not Applicable) - Jd Sandoval DO
[2025-09-20] MEDS: ceFAZolin 2,000 mg SDV 2000 MG IVP (09:34)
[2025-09-20] MEDS: lidocaine-epi 1% 20 mL INJ INJECTION (09:59)
--- NOTE | 2025-09-20 10:48 | P.OP_ITS ---
Operative Report Date of procedure: September 20, 2025 Pre-op diagnosis: Lumbar stenosis neurogenic claudication Post-op diagnosis: same Procedure done: 1. L3/4 laminectomy partial facetectomy 2. L4/5 laminectomy partial facetectomy Surgeon: Jd Sandoval DO Estimated blood loss (mL): 5 Procedure: 1. L3/4 laminectomy partial facetectomy 2. L4/5 laminectomy partial facetectomy Patient is brought to the operative suite. After undergoing anesthesia they are placed in the prone position. All areas of impingement are well padded. Patient is then prepped and draped in the normal sterile fashion. A skin incision is made over the L3/4 level. This is confirmed under c-arm guidance. A series of dilators are passed and the tubular retractor is docked on the L3 lamina. A bovie is used to clear the soft tissue off the lamina and the L 3/4 facet joint. A high speed pete is then used to perform the laminectomy and take down the medial aspect of the L 3/4 facet joint. A kerrison rongeure was then used to take down the remaining lamina and smooth the edge of the laminectomy up to the point where the ligamentum flavum attaches. Attention was then brought to the medial aspect of the facet joint. The remaining medial aspect of the superior and inferior aspect of the facet joint w ere taken down with the kerrison from the pedicle of L3 to L 4. The facet joint had significant hypertrophy. Attention was then brought to the Ligamentum Flavum. The ligament was taken down from the lamina of L3 to L4 and out medially to the remaining facet joint. The ligament was thick. The dura was then exposed. The dura was in good repair. The L3 nerve was then traced with a curette out the L 3/4 foramen and found to be adequately decompressed. The L4 nerve was traced with a curette around the L4 pedicle. The lateral recess was opened with a kerrison helping to further decompress the L4 nerve. Wound is then irrigated copiously with saline and surgiflo is used to stop any bleeding. The tubular retractor is removed A skin incision is made over the L4/5 level. This is confirmed under c-arm guidance. A series of dilators are passed and the tubular retractor is docked on the L4 lamina. A bovie is used to clear the soft tissue off the lamina and the L 4/5 facet joint. A high speed pete is then used to perform the laminectomy and take down the medial aspect of the L 4/5 facet joint. A kerrison rongeure was then used to take down the remaining lamina and smooth the edge of the laminectomy up to the point where the ligamentum flavum attaches. Attention was then brought to the medial aspect of the facet joint. The remaining medial aspect of the superior and inferior aspect of the facet joint were taken down with the kerrison from the pedicle of L4 to L 5. The facet joint had significant hypertrophy. Attention was then brought to the Ligamentum Flavum. The ligament was taken down from the lamina of L4 to L5 and out medially to the remaining facet joint. The ligament was thick. The dura was then exposed. The dura was in good repair. The L4 nerve was then traced with a curette out the L4/5 foramen and found to be adequately decompressed. The L5 nerve was traced with a curette around the L5 pedicle. The lateral recess was opened with a kerrison helping to further decompress the L5 nerve. Wound is then irrigated copiously with saline and surgiflo is used to stop any bleeding. The tubular retractor is removed and the wound is closed with vicryl and monocryl suture. Steri strips were applied. A sterile dressing is then placed. Patient was then placed in the supine position and transferred to the PACU in stable condition.
--- NOTE | 2025-09-20 10:59 | XR_ITS ---
WS: [id number] XR lumbar spine 2-3V* [id number] REASON FOR EXAM: OR PICS FINDINGS: Surgical instrument overlying the right L4-L5 disc space. XR/XR lumbar spine 2-3V* [id number] IMPRESSION: Intraoperative lumbar level localization as above.
[2025-09-20] MEDS: fentaNYL 50 mcg/mL INJ 2mL IVP ×2 (11:00→11:20)
--- NOTE | 2025-09-20 12:05 | ANE.PACU2 ---
Inpatient post-anesthesia follow up: Airway intact: Yes Vital signs: Temperature 97.2 F Pulse Rate 66 Respiratory Rate 18 Blood Pressure 115/59 Pulse Oximetry 95 Oxygen Delivery Me thod Room Air Oxygen Flow Rate 6 Fraction of Inspir ed Oxygen Hydration adequate: Yes Nausea and vomiting: No Pain level: 1 Mental status: Baseline
== END 2025-09-20 12:05 | disposition home or self-care (01) ==
PROVIDERS: PCP Nurse Practitioner Family; Visit Provider Orthopaedic Surgery
PROC: (CPT 63005; principal; 2025-09-20 10:10)
DX: M48.062 Spinal stenosis, lumbar region with neurogenic claudication (principal); K21.9 Gastro-esophageal reflux disease without esophagitis; I73.00 Raynaud's syndrome without gangrene; Z98.84 Bariatric surgery status; Z85.038 Personal history of other malignant neoplasm of large intestine; F12.90 Cannabis use, unspecified, uncomplicated; Z87.891 Personal history of nicotine dependence
CPT/HCPCS: 63047; 63048; 72100; 76000; A4649; J0131; J0690; J1100; J1171; J2250; J2405; J2704; J3010; J3490; J7030; J9999